=== PATIENT | female | born 1975 | race African-American/Black ===

== ENCOUNTER 2017-03-08 13:19 | Inpatient (IN) | payer OTHER ==
[2017-03-08 14:04] VITALS: BMI 28.1
--- NOTE | 2017-03-08 16:45 | HP ---
CIWA Score - CIWA Score Nausea/Vomitin Muscle Tremors: 4-Moderate,w/Arms Extend Anxiety: 4-Mod. Anxious/Guarded Agitation: 4-Moderately Restless Paroxysmal Sweats: 3 Orientation: 0-Oriented Tacttile Disturbances: 1-Very Mild Itch/Numbness Auditory Disturbances: 0-None Visual Disturbances: 0-None Headache: 2-Mild CIWA-Ar Total Score: 21 Admission ROS BHS - HPI Chief Complaint: alcohol withdrawal sx Allergies/Adverse Reactions: Allergies Allergy/AdvReac Type Severity Reaction Status Date / Time Penicillins Allergy Severe Swelling Verified 03/08/17 16:09 History of Present Illness: 41 yo f with h/o chronic alcoholism and cannabis dependence last in detox 07/07 came to day to get out of the black, has MAME when she does not drink last drink yesterday, get shakes temros, sweats, when she does nto drink but mostly anxiety and agitation PMHX nicotine dependence, no suicidal ideation, suicide attempts in past Exam Limitations: No Limitations - Ebola screening Have you traveled outside of the country in the last 21 days: No Have you had contact with anyone from an Ebola affected area: No Have you been sick,other than usual withdrawal symptoms: No Do you have a fever: No - Review of Systems Constitutional: Chills, Diaphoresis, Malaise, Night Sweats, Unintentional Wgt. Loss EENT: reports: No Symptoms Reported, Ear Pain (allergies, burning??) Respiratory: reports: No Symptoms reported Cardiac: reports: No Symptoms Reported, Edema (from wate4 retention) GI: reports: Nausea, Poor Appetite, Poor Fluid Intake, Abdominal cramping : reports: No Symptoms Reported Musculoskeletal: reports: Back Pain (chronic low back pain), Muscle Pain (leg spasms) Integumentary: reports: Flushing, Rash (on face uses steroids), Sweating Neuro: reports: Headache, Numbness, Paresthesia, Tingling, Tremors, Weakness Endocrine: reports: No Symptoms Reported Hematology: reports: No Symptoms Reported Psychiatric: reports: Judgement Intact, Mood/Affect Appropiate, Orientated x3, Agitated, Anxious, Depressed Other Systems: Reviewed and Negative Patient History - Patient Medical History Hx Anemia: No Hx Asthma: No Hx Chronic Obstructive Pulmonary Disease (COPD): No Hx Cancer: No Hx Cardiac Disorders: No Hx Congestive Heart Failure: No Hx Hypertension: No Hx Hypercholesterolemia: No Hx Pacemaker: No HX Cerebrovascular Accident: No Hx Seizures: No Hx Dementia: No Hx Diabetes: No Hx Gastrointestinal Disorders: No Hx Liver Disease: No Hx Genitourinary Disorders: No Hx Sexually Transmitted Disorders: No Hx Renal Disease (ESRD): No Hx Thyroid Disease: No Hx Human Immunodeficiency Virus (HIV): No Hx Hepatitis C: No Hx Depression: No Hx Suicide Attempt: No Hx Bipolar Disorder: No Hx Schizophrenia: No - Patient Surgical History Past Surgical History: Yes Hx Neurologic Surgery: No Hx Cataract Extraction: No Hx Cardiac Surgery: No Hx Lung Surgery: No Hx Breast Surgery: No Hx Breast Biopsy: No Hx Abdominal Surgery: No Hx Appendectomy: No Hx Cholecystectomy: Yes (20 years ago.) Hx Genitourinary Surgery: No Hx Section: No Hx Orthopedic Surgery: No Hx Hysterectomy: No Anesthesia Reaction: No - PPD History Previous Implant?: Yes Documented Results: Negative w/o proof Implanted On Prior R Admission?: No PPD to be Administered?: Yes - Reproductive History Patient is a Female of Child Bearing Age (11 -55 yrs old): No Last Menstrual Period: 02/19/17 Patient : No - Smoking Cessation Smoking history: Current every day smoker Have you smoked in the past 12 months: Yes Aproximately how many cigarettes per day: 5 Hx Chewing Tobacco Use: No Initiated information on smoking cessation: Yes 'Breaking Loose' booklet given: 03/08/17 - Substance & Tx. History Hx Alcohol Use: Yes Hx Substance Use: Yes Substance Use Type: Alcohol, Marijuana Hx Substance Use Treatment: Yes (06/2016 last treatment episode) - Substances Abused Alcohol Route: Oral Frequency: Daily Amount used: 1 PINT VODKA Age of first use: 15 Date of Last Use: 03/07/17 Marijuana/Hashish Route: Smoking Frequency: Daily Amount used: 1 BAG Age of first use: 15 Date of Last Use: 03/08/17 Family Disease History - Family Disease History Family Disease History: Other: Sister (alcoholism) Admission Physical Exam BHS - Vital Signs Vital Signs: Vital Signs - 24 hr 03/08/17 14:01 Temperature 97.8 F Pulse Rate 60 Respiratory 20 Rate Blood Pressure 155/93 - Physical General Appearance: Yes: Nourished, Appropriately Dressed, Disheveled, Mild Distress, Tremorous, Irritable, Sweating, Anxious HEENTM: Yes: EOMI, Hearing grossly Normal, Normal ENT Inspection, Normocephalic , Normal Voice, SHASHI, Pharynx Normal Respiratory: Yes: Within Normal Limits, Chest Non-Tender, Lungs Clear, Normal Breath Sounds, No Respiratory Distress, No Accessory Muscle Use Neck: Yes: Within Normal Limits, No masses,lesions,Nodules, Supple, Trachea in good position Breast: Yes: Breast Exam Deferred Cardiology: Yes: Within Normal Limits, Regular Rhythm, Regular Rate, S1, S2 Abdominal: Yes: Normal Bowel Sounds, Non Tender, Flat, Soft, Increased Bowel Sounds Genitourinary: Yes: Within Normal Limits Back: Yes: Normal Inspection, Muscle Spasm Musculoskeletal: Yes: full range of Motion, Gait Steady, Pelvis Stable, Back pain, Muscle Pain, Muscle weakness, Other (spasms in calfs) Extremities: Yes: Normal Capillary Refill, Normal Range of Motion, Non-Tender, Tremors, Pedal Edema (1+ pitting), Swelling Neurological: Yes: supervisor diagnostic II-XII NML intact, Fully Oriented, Alert, Motor Strength 5/5, Normal Response, Depressed Affect Integumentary: Yes: Normal Color, Warm, Diaphoresis, Rash Lymphatic: Yes: Within Normal Limits - Addiitonal Findings: alcohol withdrawal sx - Diagnostic (1) Alcohol dependence with uncomplicated withdrawal Current Visit: Yes Status: Acute (2) Nicotine dependence Current Visit: Yes Status: Acute (3) Cannabis dependence, uncomplicated Current Visit: Yes Status: Acute (4) Pedal edema Current Visit: Yes Status: Acute (5) Anxiety Current Visit: Yes Status: Acute Cleared for Admission [facility] - Detox or Rehab [facility] Level of Care: Medically Managed Detox Regimen/Protocol: Librium [facility] Breath Alcohol Content Breath Alcohol Content: 0 Urine Pregancy Test - Result Urine Test Results: Negative- NO Line Present Urine Drug Screen - Results Drug Screen Negative: No Urine Drug Screen Results: THC-Marijuana, COLIN-Cocaine
[2017-03-08] MEDS ORDERED: MENTHOL/PHENOL 1 EACH UD MM PRN (16:48)
[2017-03-08] MEDS ORDERED: MAG HYDROX/AL HYDROX/SIMETH 30 ML UNIT-DOSE CUP PO PRN (16:48)
[2017-03-08] MEDS ORDERED: chlordiazePOXIDE HCL 25 MG CAPSULE PO PRN (16:48)
[2017-03-08] MEDS ORDERED: ACETAMINOPHEN 325 MG TABLET (FP) PO PRN (16:48)
[2017-03-08] MEDS ORDERED: guaiFENesin/D-METHORPHAN HB 10 ML UNIT-DOSE CUPS PO PRN (16:48)
[2017-03-08] MEDS ORDERED: hydrOXYzine PAMOATE 50 MG CAPSULE (FP) PO PRN (16:48)
[2017-03-08] MEDS ORDERED: MAGNESIUM CITRATE 300 ML BOTTLE PO PRN (16:48)
[2017-03-08] MEDS ORDERED: LOPERAMIDE HCL 2 MG CAPSULE PO PRN (16:48)
[2017-03-08] MEDS ORDERED: MAGNESIUM HYDROX 2400MG/30ML ORAL SUSPENSION 30 ML CUP PO PRN (16:48)
[2017-03-08] MEDS ORDERED: chlordiazePOXIDE HCL 25 MG CAPSULE PO ONE (18:15)
[2017-03-08] MEDS: PANTOPRAZOLE 40 MG TABLET (FP) PO SCH (18:41)
[2017-03-08] MEDS: LORATADINE 10 MG TABLET PO SCH (18:42)
[2017-03-08] MEDS: NICOTINE 14 MG/24 HOURS TOPICAL PATCH TD SCH (18:43)
[2017-03-08] MEDS: FLUTICASONE PROP 0.05% 16 GM NASAL SPRAY NS SCH (18:43)
[2017-03-08 21:21] LABS: URINE APPEARANCE CLOUDY; URINE BILIRUBIN NEGATIVE (NEGATIVE); URINE BLOOD NEGATIVE (NEGATIVE); URINE COLOR YELLOW; URINE GLUCOSE (UA) NEGATIVE (NEGATIVE); URINE KETONE NEGATIVE (NEGATIVE); URINE NITRITE NEGATIVE (NEGATIVE); URINE UROBILINOGEN NEGATIVE mg/dL (0.2-1.0)
[2017-03-08 21:23] LABS: URINE LEUK ESTERASE 1+ (NEGATIVE); URINE PROTEIN 1+ (NEGATIVE)
[2017-03-08 21:25] LABS: URINE MUCUS MODERATE; URINE RBC 2 /hpf (0-3); URINE WBC 20 /hpf (3-5)
[2017-03-08] MEDS: chlordiazePOXIDE HCL 25 MG CAPSULE PO SCH (22:29)
[2017-03-08] MEDS: NAPROXEN 500 MG TABLET (FP) PO SCH (22:29)
[2017-03-08] MEDS: THIAMINE HCL 100 MG TABLET (FP) PO SCH (22:58)
[2017-03-09] MEDS: chlordiazePOXIDE HCL 25 MG CAPSULE PO SCH ×4 (08:23→22:45)
[2017-03-09 09:51] LABS: MCH 31.5 pg (25.7-33.7); MCHC 33.2 g/dl (32.0-36.0); MEAN PLT VOLUME 10.1 fl (7.5-11.1); PLATELET COUNT 177 K/MM3 (134-434); WHITE BLOOD COUNT 4.6 K/mm3 (4.0-10.0)
--- NOTE | 2017-03-09 09:54 | PN ---
S CIWA - CIWA Score Nausea/Vomitin Muscle Tremors: 4-Moderate,w/Arms Extend Anxiety: 4-Mod. Anxious/Guarded Agitation: 4-Moderately Restless Paroxysmal Sweats: 3 Orientation: 0-Oriented Tacttile Disturbances: 1-Very Mild Itch/Numbness Auditory Disturbances: 0-None Visual Disturbances: 0-None Headache: 1-Very Mild CIWA-Ar Total Score: 20 BHS Progress Note (SOAP) Subjective: nause,a sweats, interrupted sleep, anxiety, tremors [id number] steroid cream for face bid Objective: 03/09/17 09:54 Vital Signs - 8 hr 03/09/17 03/09/17 03:30 06:00 Temperature 97.7 F Pulse Rate 53 L Respiratory 18 18 Rate Blood Pressure 124/77 Laboratory Tests 03/08/17 14:00 Urine Color Yellow Urine Appearance Cloudy Urine pH 5.0 Ur Specific [place] 1.025 Urine Protein 1+ H Urine Glucose (UA) Negative Urine Ketones Negative Urine Blood Negative Urine Nitrite Negative Urine Bilirubin Negative Urine Urobilinogen Negative Urine RBC 2 Urine WBC 20 Ur Epithelial Cells Moderate Urine Mucus Moderate labs pending Assessment: 03/09/17 09:54 withdrawal sx, facial rash Plan: cont detox, fluids, encourage ambualtion betamehtasone ordered at patient request for rash on face
[2017-03-09] MEDS: CYCLOBENZAPRINE HCL 10 MG TABLET (FP) PO PRN ×2 (10:20→22:45)
[2017-03-09] MEDS: NAPROXEN 500 MG TABLET (FP) PO SCH ×2 (10:20→22:45)
[2017-03-09] MEDS: PRENATAL VITAMINS W/ FOLIC ACID TABLET (FP) PO SCH (10:20)
[2017-03-09] MEDS: LORATADINE 10 MG TABLET PO SCH (10:20)
[2017-03-09] MEDS: FLUTICASONE PROP 0.05% 16 GM NASAL SPRAY NS SCH (10:21)
[2017-03-09] MEDS: PANTOPRAZOLE 40 MG TABLET (FP) PO SCH (10:21)
[2017-03-09] MEDS: NICOTINE 14 MG/24 HOURS TOPICAL PATCH TD SCH (10:22)
[2017-03-09] MEDS: NICOTINE POLACRILEX 2 MG GUM BC PRN (10:24)
[2017-03-09 10:26] LABS: ALBUMIN 3.3 g/dl (3.4-5.0); ALK PHOS 43 U/L (45-117); ANION GAP 4 (8-16); BILIRUBIN,TOTAL 0.9 mg/dL (0.2-1.0); CALCIUM 8.3 mg/dL (8.5-10.1); CO2 30 mmol/L (21-32); CREATININE 0.5 mg/dL (0.55-1.02); GLUCOSE,RANDOM 79 mg/dL (74-106); SGOT/AST 16 U/L (15-37); SGPT/ALT 15 U/L (12-78); TOT PROT 5.5 g/dl (6.4-8.2)
[2017-03-09] MEDS: BETAMETHASONE VALERATE 0.1% CREAM 15 GM TUBE TP SCH ×2 (10:36→22:45)
--- NOTE | 2017-03-09 15:53 | CONSULT ---
[facility] Psychiatric Consult - Data Date of interview: 03/09/17 Admission source: [facility] Identifying data: This is 41 years old female with no past pscyjairic hospitalization history intoxicate dwith: Alcohol, Cannabis, Nicotine Substance Abuse History: - Smoking Cessation. Smoking history: Current every day smoker. Have you smoked in the past 12 months: Yes. Aproximately how many cigarettes per day: 5. Hx Chewing Tobacco Use: No. Initiated information on smoking cessation: Yes. 'Breaking Loose' booklet given: 03/08/17. - Substance & Tx. History. Hx Alcohol Use: Yes. Hx Substance Use: Yes. Substance Use Type : Alcohol, Marijuana. Hx Substance Use Treatment: Yes (06/2016 last treatment episode). - Substances Abused. Alcohol. Route: Oral. Frequency: Daily. Amount used: 1 PINT VODKA. Age of first use: 15. Date of Last Use: 03/07/17. Marijuana/Hashish. Route: Smoking. Frequency: Daily. Amount used: 1 BAG. Age of first use: 15. Date of Last Use: 03/08/17 Medical History: Pedal Edema Psychiatric History: Patient reports history of anxiety, reports taking no , edications prior to admission, denies suicidal history Physical/Sexual Abuse/Trauma History: Denies Additional Comment: Observation. Detox unit care protocol Mental Status Exam - Mental Status Exam Alert and Oriented to: Person Cognitive Function: Fair Patient Appearance: Unkempt Mood: Sad Affect: Flat Patient Behavior: Sedated Speech Pattern: Delayed Voice Loudness: Mildly Soft/Quiet Thought Process: Circumstantial Thought Disorder: Being Controlled Hallucinations: Denies Suicidal Ideation: Denies Homicidal Ideation: Denies Insight/Judgement: Fair Sleep: Difficulty falling asleep Appetite: Fair Muscle strength/Tone: Normal Gait/Station: Normal Additional Comments: Observation. Detox unit care protocol
--- NOTE | 2017-03-09 22:42 | EKG ---
Test Reason : Blood Pressure : / mmHG Vent. Rate : 058 BPM Atrial Rate : 058 BPM P-R Int : 152 ms QRS Dur : 094 ms QT Int : 418 ms P-R-T Axes : 040 023 044 degrees QTc Int : 410 ms SINUS BRADYCARDIA OTHERWISE NORMAL ECG NO PREVIOUS ECGS AVAILABLE Confirmed by VENU LLAMAS MD ([id number] on 03/09/2017 10:42:17 PM Referred By: Confirmed By:VENU LLAMAS MD
[2017-03-09] MEDS: THIAMINE HCL 100 MG TABLET (FP) PO SCH (22:45)
[2017-03-09] MEDS: diphenhydrAMINE HCL 50 MG CAPSULE PO PRN (22:45)
[2017-03-10] MEDS: chlordiazePOXIDE HCL 25 MG CAPSULE PO SCH ×3 (05:52→16:58)
[2017-03-10] MEDS: NICOTINE POLACRILEX 2 MG GUM BC PRN (05:54)
[2017-03-10] MEDS: PRENATAL VITAMINS W/ FOLIC ACID TABLET (FP) PO SCH (10:11)
[2017-03-10] MEDS: NAPROXEN 500 MG TABLET (FP) PO SCH ×2 (10:12→22:05)
[2017-03-10] MEDS: FLUTICASONE PROP 0.05% 16 GM NASAL SPRAY NS SCH (10:12)
[2017-03-10] MEDS: PANTOPRAZOLE 40 MG TABLET (FP) PO SCH (10:12)
[2017-03-10] MEDS: NICOTINE 14 MG/24 HOURS TOPICAL PATCH TD SCH (10:12)
[2017-03-10] MEDS: LORATADINE 10 MG TABLET PO SCH (10:12)
[2017-03-10] MEDS: BETAMETHASONE VALERATE 0.1% CREAM 15 GM TUBE TP SCH ×2 (10:12→22:05)
--- NOTE | 2017-03-10 11:13 | PN ---
S CIWA - CIWA Score Nausea/Vomitin-No Nausea/No Vomiting Muscle Tremors: 4-Moderate,w/Arms Extend Anxiety: 3 Agitation: 4-Moderately Restless Paroxysmal Sweats: 3 Orientation: 0-Oriented Tacttile Disturbances: 0-None Auditory Disturbances: 0-None Visual Disturbances: 0-None Headache: 0-None Present CIWA-Ar Total Score: 14 BHS Progress Note (SOAP) Subjective: agitation sweats irritable chills Objective: 03/10/17 11:14 Vital Signs Temperature 98.2 F 03/10/17 10:20 Pulse Rate 75 03/10/17 10:20 Respiratory Rate 18 03/10/17 10:20 Blood Pressure 134/92 03/10/17 10:20 O2 Sat by Pulse Oximetry (%) Laboratory Tests 03/08/17 03/09/17 03/09/17 14:00 07:00 07:00 WBC 4.6 RBC 3.65 Hgb 11.5 Hct 34.6 MCV 95.0 MCH 31.5 MCHC 33.2 RDW 13.0 Plt Count 177 MPV 10.1 Sodium 142 Potassium 3.6 Chloride 108 H Carbon Dioxide 30 Anion Gap 4 L BUN 14 Creatinine 0.5 L Creat Clearance w eGFR > 60 Random Glucose 79 Calcium 8.3 L Total Bilirubin 0.9 AST 16 ALT 15 Alkaline Phosphatase 43 L Total Protein 5.5 L Albumin 3.3 L Urine Color Yellow Urine Appearance Cloudy Urine pH 5.0 Ur Specific [place] 1.025 Urine Protein 1+ H Urine Glucose (UA) Negative Urine Ketones Negative Urine Blood Negative Urine Nitrite Negative Urine Bilirubin Negative Urine Urobilinogen Negative Urine RBC 2 Urine WBC 20 Ur Epithelial Cells Moderate Urine Mucus Moderate RPR Titer 03/09/17 07:00 WBC RBC Hgb Hct MCV MCH MCHC RDW Plt Count MPV Sodium Potassium Chloride Carbon Dioxide Anion Gap BUN Creatinine Creat Clearance w eGFR Random Glucose Calcium Total Bilirubin AST ALT Alkaline Phosphatase Total Protein Albumin Urine Color Urine Appearance Urine pH Ur Specific [place] Urine Protein Urine Glucose (UA) Urine Ketones Urine Blood Urine Nitrite Urine Bilirubin Urine Urobilinogen Urine RBC Urine WBC Ur Epithelial Cells Urine Mucus RPR Titer Nonreactive repeat u/a aaox3 ambulating no acute distress Assessment: 03/10/17 11:14 withdrawal sx Plan: continue detox increase fluids f/u pending labs
[2017-03-10] MEDS: CYCLOBENZAPRINE HCL 10 MG TABLET (FP) PO PRN ×2 (14:29→22:05)
[2017-03-10] MEDS: THIAMINE HCL 100 MG TABLET (FP) PO SCH (22:05)
[2017-03-10] MEDS: chlordiazePOXIDE 5 MG CAPSULE PO SCH (22:05)
[2017-03-10] MEDS: diphenhydrAMINE HCL 50 MG CAPSULE PO PRN (22:05)
[2017-03-11] MEDS: chlordiazePOXIDE 5 MG CAPSULE PO SCH ×3 (05:48→17:22)
[2017-03-11 10:16] LABS: URINE APPEARANCE SLCLOUDY; URINE BILIRUBIN NEGATIVE (NEGATIVE); URINE BLOOD NEGATIVE (NEGATIVE); URINE COLOR STRAW; URINE GLUCOSE (UA) NEGATIVE (NEGATIVE); URINE KETONE NEGATIVE (NEGATIVE); URINE NITRITE NEGATIVE (NEGATIVE); URINE PROTEIN NEGATIVE (NEGATIVE); URINE UROBILINOGEN NEGATIVE mg/dL (0.2-1.0)
[2017-03-11 10:18] LABS: URINE LEUK ESTERASE 1+ (NEGATIVE)
[2017-03-11 10:19] LABS: URINE RBC <1 /hpf (0-3); URINE WBC 7 /hpf (3-5)
[2017-03-11] MEDS: NAPROXEN 500 MG TABLET (FP) PO SCH ×2 (10:26→22:07)
[2017-03-11] MEDS: PRENATAL VITAMINS W/ FOLIC ACID TABLET (FP) PO SCH (10:26)
[2017-03-11] MEDS: PANTOPRAZOLE 40 MG TABLET (FP) PO SCH (10:26)
[2017-03-11] MEDS: LORATADINE 10 MG TABLET PO SCH (10:26)
[2017-03-11] MEDS: FLUTICASONE PROP 0.05% 16 GM NASAL SPRAY NS SCH (10:26)
[2017-03-11] MEDS: BETAMETHASONE VALERATE 0.1% CREAM 15 GM TUBE TP SCH ×2 (10:27→22:07)
[2017-03-11] MEDS: NICOTINE POLACRILEX 2 MG GUM BC PRN (10:30)
[2017-03-11] MEDS: NICOTINE 14 MG/24 HOURS TOPICAL PATCH TD SCH (10:30)
--- NOTE | 2017-03-11 12:13 | PN ---
BHS Progress Note (SOAP) Subjective: irritable tired sweats Objective: 03/11/17 12:12 Vital Signs Temperature 98.6 F 03/11/17 09:51 Pulse Rate 67 03/11/17 09:51 Respiratory Rate 16 03/11/17 09:51 Blood Pressure 145/91 03/11/17 09:51 O2 Sat by Pulse Oximetry (%) aaox3 ambulating no acute distress Assessment: 03/11/17 12:13 mild withdrawal sx Plan: continue detox increase fluids d/c in the am
[2017-03-11] MEDS: diphenhydrAMINE HCL 50 MG CAPSULE PO PRN (22:06)
[2017-03-11] MEDS: CYCLOBENZAPRINE HCL 10 MG TABLET (FP) PO PRN (22:07)
[2017-03-11] MEDS: THIAMINE HCL 100 MG TABLET (FP) PO SCH (22:07)
[2017-03-11] MEDS: chlordiazePOXIDE HCL 10 MG CAPSULE PO SCH (22:07)
[2017-03-12] MEDS: chlordiazePOXIDE HCL 10 MG CAPSULE PO SCH ×2 (06:47→10:40)
--- NOTE | 2017-03-12 09:00 | DS ---
[facility] Detox Discharge Summary Admission Date: 03/08/17 Discharge Date: 03/12/17 - History Present History: Alcohol Dependence, Cannabis Dependence Pertinent Past History: anxiety, insomnia, depression , nicotine dependence, swollen ankles - Physical Exam Results Vital Signs: Vital Signs Temperature 97.7 F 03/12/17 07:15 Pulse Rate 57 L 03/12/17 07:15 Respiratory Rate 18 03/12/17 07:15 Blood Pressure 130/68 03/12/17 07:15 O2 Sat by Pulse Oximetry (%) Laboratory Tests 03/08/17 03/09/17 03/09/17 14:00 07:00 07:00 WBC 4.6 RBC 3.65 Hgb 11.5 Hct 34.6 MCV 95.0 MCH 31.5 MCHC 33.2 RDW 13.0 Plt Count 177 MPV 10.1 Sodium 142 Potassium 3.6 Chloride 108 H Carbon Dioxide 30 Anion Gap 4 L BUN 14 Creatinine 0.5 L Creat Clearance w eGFR > 60 Random Glucose 79 Calcium 8.3 L Total Bilirubin 0.9 AST 16 ALT 15 Alkaline Phosphatase 43 L Total Protein 5.5 L Albumin 3.3 L Urine Color Yellow Urine Appearance Cloudy Urine pH 5.0 Ur Specific [place] 1.025 Urine Protein 1+ H Urine Glucose (UA) Negative Urine Ketones Negative Urine Blood Negative Urine Nitrite Negative Urine Bilirubin Negative Urine Urobilinogen Negative Urine RBC 2 Urine WBC 20 Ur Epithelial Cells Moderate Urine Mucus Moderate RPR Titer 03/09/17 03/11/17 07:00 07:30 WBC RBC Hgb Hct MCV MCH MCHC RDW Plt Count MPV Sodium Potassium Chloride Carbon Dioxide Anion Gap BUN Creatinine Creat Clearance w eGFR Random Glucose Calcium Total Bilirubin AST ALT Alkaline Phosphatase Total Protein Albumin Urine Color Straw Urine Appearance Slcloudy Urine pH 6.0 Ur Specific [place] 1.015 Urine Protein Negative Urine Glucose (UA) Negative Urine Ketones Negative Urine Blood Negative Urine Nitrite Negative Urine Bilirubin Negative Urine Urobilinogen Negative Urine RBC <1 Urine WBC 7 Ur Epithelial Cells Few Urine Mucus RPR Titer Nonreactive Pertinent Admission Physical Exam Findings: withdrawal sx - Treatment Hospital Course: Detox Protocol Followed, Detoxed Safely, Responded well, Discharged Condition Good, Rehab Referral Accepted - Diagnosis (1) Alcohol dependence with uncomplicated withdrawal Current Visit: Yes Status: Chronic (2) Nicotine dependence Current Visit: Yes Status: Chronic Qualifiers: Nicotine product type: cigarettes Substance use status: uncomplicated Qualified Code(s): F17.210 - Nicotine dependence, cigarettes, uncomplicated (3) Cannabis dependence, uncomplicated Current Visit: Yes Status: Chronic (4) Pedal edema Current Visit: Yes Status: Acute (5) Anxiety Current Visit: Yes Status: Chronic - AMA Did Patient Leave Against Medical Advice: No
[2017-03-12] MEDS ORDERED: BACITRACIN 0.9 GM PACKET TP SCH (10:00)
[2017-03-12 10:07] VITALS: BP 150/81; PULSE 80; TEMP 99
[2017-03-12] MEDS: FLUTICASONE PROP 0.05% 16 GM NASAL SPRAY NS SCH (10:39)
[2017-03-12] MEDS: PANTOPRAZOLE 40 MG TABLET (FP) PO SCH (10:40)
[2017-03-12] MEDS: LORATADINE 10 MG TABLET PO SCH (10:40)
[2017-03-12] MEDS: NAPROXEN 500 MG TABLET (FP) PO SCH (10:40)
[2017-03-12] MEDS: BETAMETHASONE VALERATE 0.1% CREAM 15 GM TUBE TP SCH (10:40)
[2017-03-12] MEDS: PRENATAL VITAMINS W/ FOLIC ACID TABLET (FP) PO SCH (10:40)
[2017-03-12] MEDS: NICOTINE 14 MG/24 HOURS TOPICAL PATCH TD SCH (10:41)
[2017-03-12] MEDS: NICOTINE POLACRILEX 2 MG GUM BC PRN (10:43)
== END 2017-03-12 14:21 | disposition home or self-care (01) | DRG 775 ==
LOC: YASAS 13:19 → Y6N 17:49
PROVIDERS: ADMIT Internal Medicine; ATTEND Internal Medicine
PROC: HZ2ZZZZ Detoxification Services for Substance Abuse Treatment (ICD-10-PCS; principal; 2017-03-08)
DX: F10.230 Alcohol dependence with withdrawal, uncomplicated (principal); F12.20 Cannabis dependence, uncomplicated; F17.210 Nicotine dependence, cigarettes, uncomplicated; F41.9 Anxiety disorder, unspecified; R60.0 Localized edema
CPT/HCPCS: 36415; 71020-TC; 80053; 81003; 81015; 85027; 86593; 93005; 93010

== ENCOUNTER 2017-06-03 12:26 | Inpatient (IN) | payer OTHER ==
[2017-06-03 13:18] VITALS: BMI 29.5
--- NOTE | 2017-06-03 16:42 | HP ---
[facility] Rehab Assess/Revision - Admission History Admitted to Rehab from: [facility] Date of Admission to Rehab: 06/03/2017 - Vital signs Vital Signs: Vital Signs Period Temp Pulse Resp BP Sys/Singh Pulse Ox Last 24 Hr 97.9 F 83 20 106/68 - Findings Detox History & Physical reviewed: Yes Concur with findings: Yes Comments/Additional Findings: Pateint relapsed to pill use most days and decided to return for inpatient rehab, court mandated Inpatient Rehab Admission - Initial Determination Are CD services needed?: Yes Free of communicable disease: Yes Not in need of hospitalization: Yes - Rehab Admission Criteria Previous failed treatment: Yes Comorbidities: Yes Patient is meeting Inpatient Rehab admission criteria:: Yes
[2017-06-03] MEDS ORDERED: MAGNESIUM CITRATE 300 ML BOTTLE PO PRN (16:44)
[2017-06-03] MEDS ORDERED: MAGNESIUM HYDROX 2400MG/30ML ORAL SUSPENSION 30 ML CUP PO PRN (16:44)
[2017-06-03] MEDS ORDERED: guaiFENesin/D-METHORPHAN HB 10 ML UNIT-DOSE CUPS PO PRN (16:44)
[2017-06-03] MEDS ORDERED: MENTHOL/PHENOL 1 EACH UD MM PRN (16:44)
[2017-06-03] MEDS ORDERED: IBUPROFEN 400 MG TABLET (FP) PO PRN (16:44)
[2017-06-03] MEDS ORDERED: LOPERAMIDE HCL 2 MG CAPSULE PO PRN (16:44)
[2017-06-03] MEDS: THIAMINE HCL 100 MG TABLET (FP) PO SCH (22:01)
[2017-06-03] MEDS: NICOTINE 14 MG/24 HOURS TOPICAL PATCH TD SCH (22:01)
[2017-06-04 02:33] LABS: URINE APPEARANCE SLCLOUDY; URINE BILIRUBIN NEGATIVE (NEGATIVE); URINE BLOOD NEGATIVE (NEGATIVE); URINE COLOR YELLOW; URINE GLUCOSE (UA) NEGATIVE (NEGATIVE); URINE KETONE NEGATIVE (NEGATIVE); URINE NITRITE NEGATIVE (NEGATIVE); URINE PROTEIN NEGATIVE (NEGATIVE); URINE UROBILINOGEN NEGATIVE mg/dL (0.2-1.0)
[2017-06-04 02:45] LABS: URINE LEUK ESTERASE 2+ (NEGATIVE)
[2017-06-04 02:46] LABS: EPI CELLS RARE /HPF (FEW); URINE BACTERIA RARE /hpf (NONE SEEN); URINE MUCUS RARE
[2017-06-04] MEDS: P-EPHED 60MG/TRIPROLIDI 2.5MG TABLET PO PRN ×2 (07:49→18:16)
[2017-06-04 10:17] LABS: HEMATOCRIT 36.2 % (32.4-45.2); HEMOGLOBIN 11.9 GM/dL (10.7-15.3); MCH 30.4 pg (25.7-33.7); MEAN CELL VOLUME 92.2 fl (80-96); MEAN PLT VOLUME 8.6 fl (7.5-11.1); PLATELET COUNT 308 K/MM3 (134-434); RBC 3.93 M/mm3 (3.60-5.2); RDW 12.3 % (11.6-15.6)
[2017-06-04] MEDS: NICOTINE 14 MG/24 HOURS TOPICAL PATCH TD SCH (10:25)
[2017-06-04] MEDS: PRENATAL VITAMINS W/ FOLIC ACID TABLET (FP) PO SCH (10:25)
[2017-06-04] MEDS: NICOTINE POLACRILEX 2 MG GUM BC PRN (10:26)
[2017-06-04 10:29] LABS: CHLORIDE 109 mmol/L (98-107); POTASSIUM 4.3 mmol/L (3.5-5.1); SODIUM 140 mmol/L (136-145)
[2017-06-04 10:47] LABS: ALBUMIN 4.2 g/dl (3.4-5.0); ALK PHOS 66 U/L (45-117); ANION GAP 7 (8-16); BILIRUBIN,TOTAL 0.8 mg/dL (0.2-1.0); BLOOD UREA NITROGEN 13 mg/dL (7-18); CALCIUM 8.8 mg/dL (8.5-10.1); CO2 24 mmol/L (21-32); CREATININE 0.8 mg/dL (0.55-1.02); GLUCOSE,RANDOM 91 mg/dL (74-106); SGOT/AST 24 U/L (15-37); SGPT/ALT 34 U/L (12-78); TOT PROT 7.2 g/dl (6.4-8.2)
--- NOTE | 2017-06-04 14:22 | HP ---
Psychiatrist Admission - Data Date of interview: 06/04/17 Admission source: [facility] Identifying data: This is the first 3E for this 42 year old AA female mother of 4, who is unemployed and domiciled, supported by relatives. Medical History: History of cholecystoectomy at age of 12. Smokes 15 cigarettes a day. Psychiatric History: Patient reports was diagnosed with Bipolar disorder, one psychiatric hospitalization 3 months ago at [facility] in [place] and was on [place] 300 mg po bid, Zyprexa 20 mg po hs, Lexapro 10 mg po daily. Reports was under the care of the psychiatrist at [facility] , while here at [facility] on 05/04/17 seen by and continued medications. Patient completed detox relapsed and returned for rehab, her treatment is a drug court mandated. Blood result for lithium pending. Physical/Sexual Abuse/Trauma History: Patient denies Vital Signs: Vital Signs - 24 hr 06/03/17 06/04/17 06/04/17 22:30 00:30 03:30 Temperature 97.9 F Pulse Rate 83 Respiratory 18 17 18 Rate Blood Pressure 120/82 06/04/17 07:22 Temperature 99.1 F Pulse Rate 75 Respiratory 18 Rate Blood Pressure 120/83 Allergies/Adverse Reactions: Allergies Allergy/AdvReac Type Severity Reaction Status Date / Time Penicillins Allergy Severe Swelling Verified 06/03/17 15:57 Date of last physical exam: 06/03/17 Concur with the findings of this exam: Yes - Substance Abuse/Tx History Hx Alcohol Use: Yes Hx Substance Use: Yes Substance Use Type: Marijuana Hx Substance Use Treatment: Yes (detox at [facility], [facility] at [facility] Mental Status Exam - Mental Status Exam Alert and Oriented to: Place, Person Cognitive Function: Grossly Intact Patient Appearance: Well Groomed Mood: Sad, Anxious Affect: Mood Congruent Patient Behavior: Appropriate, Cooperative Speech Pattern: Clear Voice Loudness: Normal Thought Process: Goal Oriented Thought Disorder: Not Present Hallucinations: Denies Suicidal Ideation: Denies Homicidal Ideation: Denies Insight/Judgement: Fair Sleep: Poorly Appetite: Fair Muscle strength/Tone: Normal Gait/Station: Normal Psychiatric Findings - Problem List ([place] 1, 2,3) (1) Cannabis dependence Current Visit: Yes Status: Acute (2) Alcohol dependence Current Visit: Yes Status: Acute (3) Bipolar disorder Current Visit: No Status: Chronic Comment: As per self-report.Currrently on medications. (4) Nicotine dependence Current Visit: No Status: Chronic Qualifiers: - Initial Treatment Plan Initial Treatment Plan: will continue zyprexa, lexapro, will restart lithium when get a blood result, monitor progress as needed.
[2017-06-04] MEDS: THIAMINE HCL 100 MG TABLET (FP) PO SCH (21:57)
[2017-06-04] MEDS: OLANZapine 10 MG TABLET PO SCH (21:57)
[2017-06-05] MEDS ORDERED: PT OWN MED DRAWER 7, Y5N ONE (08:34)
[2017-06-05] MEDS: NICOTINE POLACRILEX 2 MG GUM BC PRN (09:06)
[2017-06-05] MEDS: ESCITALOPRAM OXALATE 10 MG TABLET (FP) PO SCH (09:06)
[2017-06-05] MEDS: P-EPHED 60MG/TRIPROLIDI 2.5MG TABLET PO PRN ×2 (09:06→21:43)
[2017-06-05] MEDS: PRENATAL VITAMINS W/ FOLIC ACID TABLET (FP) PO SCH (09:06)
[2017-06-05] MEDS: NICOTINE 14 MG/24 HOURS TOPICAL PATCH TD SCH (09:07)
[2017-06-05] MEDS: OLANZapine 10 MG TABLET PO SCH (21:42)
[2017-06-05] MEDS: THIAMINE HCL 100 MG TABLET (FP) PO SCH (21:42)
[2017-06-06] MEDS: NICOTINE 14 MG/24 HOURS TOPICAL PATCH TD SCH (09:40)
[2017-06-06] MEDS: PRENATAL VITAMINS W/ FOLIC ACID TABLET (FP) PO SCH (09:40)
[2017-06-06] MEDS: ESCITALOPRAM OXALATE 10 MG TABLET (FP) PO SCH (09:41)
[2017-06-06] MEDS: THIAMINE HCL 100 MG TABLET (FP) PO SCH (21:39)
[2017-06-06] MEDS: OLANZapine 10 MG TABLET PO SCH (21:39)
[2017-06-06] MEDS: P-EPHED 60MG/TRIPROLIDI 2.5MG TABLET PO PRN (21:42)
[2017-06-07] MEDS: PRENATAL VITAMINS W/ FOLIC ACID TABLET (FP) PO SCH (10:01)
[2017-06-07] MEDS: ESCITALOPRAM OXALATE 10 MG TABLET (FP) PO SCH (10:01)
[2017-06-07] MEDS: NICOTINE 14 MG/24 HOURS TOPICAL PATCH TD SCH (10:01)
[2017-06-07] MEDS: NICOTINE POLACRILEX 2 MG GUM BC PRN (10:02)
--- NOTE | 2017-06-07 12:46 | PN ---
BHS Progress Note (SOAP) Subjective: c/o ry skin/itchy uses beclomethasonw w good effect Objective: 06/07/17 12:45 Vital Signs - 8 hr 06/07/17 07:23 Temperature 98.8 F Pulse Rate 67 Respiratory 18 Rate Blood Pressure 117/75 Laboratory Tests 06/03/17 06/04/17 06/04/17 23:15 07:00 07:00 WBC 6.0 RBC 3.93 Hgb 11.9 Hct 36.2 MCV 92.2 MCH 30.4 MCHC 33.0 RDW 12.3 Plt Count 308 MPV 8.6 Sodium Potassium Chloride Carbon Dioxide Anion Gap BUN Creatinine Creat Clearance w eGFR Random Glucose Calcium Total Bilirubin AST ALT Alkaline Phosphatase Total Protein Albumin Urine Color Yellow Urine Appearance Slcloudy Urine pH 7.0 Ur Specific [place] 1.015 Urine Protein Negative Urine Glucose (UA) Negative Urine Ketones Negative Urine Blood Negative Urine Nitrite Negative Urine Bilirubin Negative Urine Urobilinogen Negative Ur Leukocyte Esterase Trace H Urine WBC (Auto) 5 Urine RBC (Auto) 1 Ur Epithelial Cells Rare Urine Bacteria Rare Urine Mucus Rare [place] 0 L RPR Titer 06/04/17 06/04/17 07:00 07:00 WBC RBC Hgb Hct MCV MCH MCHC RDW Plt Count MPV Sodium 140 Potassium 4.3 Chloride 109 H Carbon Dioxide 24 Anion Gap 7 L BUN 13 Creatinine 0.8 Creat Clearance w eGFR > 60 Random Glucose 91 Calcium 8.8 Total Bilirubin 0.8 D AST 24 ALT 34 D Alkaline Phosphatase 66 D Total Protein 7.2 Albumin 4.2 Urine Color Urine Appearance Urine pH Ur Specific [place] Urine Protein Urine Glucose (UA) Urine Ketones Urine Blood Urine Nitrite Urine Bilirubin Urine Urobilinogen Ur Leukocyte Esterase Urine WBC (Auto) Urine RBC (Auto) Ur Epithelial Cells Urine Bacteria Urine Mucus [place] RPR Titer Nonreactive Assessment: 06/07/17 12:45 dry skin eczema vs allergies, beclomethasone ordered adn aveeno soap.
[2017-06-07] MEDS ORDERED: PT OWN MED DRAWER 7, Y5N ONE ×2 (15:44→15:46)
[2017-06-07] MEDS: BETAMETHASONE DIPR 0.05% CREAM 15 GM TUBE TP SCH ×2 (15:45→21:32)
[2017-06-07] MEDS: MAG HYDROX/AL HYDROX/SIMETH 30 ML UNIT-DOSE CUP PO PRN (18:09)
[2017-06-07] MEDS: THIAMINE HCL 100 MG TABLET (FP) PO SCH (21:31)
[2017-06-07] MEDS: OLANZapine 10 MG TABLET PO SCH (21:32)
[2017-06-07] MEDS: P-EPHED 60MG/TRIPROLIDI 2.5MG TABLET PO PRN (21:33)
--- NOTE | 2017-06-08 01:58 | EKG ---
Test Reason : Blood Pressure : / mmHG Vent. Rate : 081 BPM Atrial Rate : 081 BPM P-R Int : 158 ms QRS Dur : 098 ms QT Int : 384 ms P-R-T Axes : 071 028 033 degrees QTc Int : 446 ms NORMAL SINUS RHYTHM POSSIBLE LEFT ATRIAL ENLARGEMENT INCOMPLETE RIGHT BUNDLE BRANCH BLOCK BORDERLINE ECG WHEN COMPARED WITH ECG OF 03-MAY-2017 18:58, NO SIGNIFICANT CHANGE WAS FOUND Confirmed by BRANDIN VASQUEZ MD ([id number]) on 06/08/2017 1:58:05 AM Referred By: Confirmed By:BRANDIN VASQUEZ MD
[2017-06-08] MEDS: BETAMETHASONE DIPR 0.05% CREAM 15 GM TUBE TP SCH ×2 (10:26→21:42)
[2017-06-08] MEDS: ESCITALOPRAM OXALATE 10 MG TABLET (FP) PO SCH (10:26)
[2017-06-08] MEDS: NICOTINE 14 MG/24 HOURS TOPICAL PATCH TD SCH (10:27)
[2017-06-08] MEDS: NICOTINE POLACRILEX 2 MG GUM BC PRN (10:27)
[2017-06-08] MEDS: PRENATAL VITAMINS W/ FOLIC ACID TABLET (FP) PO SCH (10:27)
[2017-06-08] MEDS: OLANZapine 10 MG TABLET PO SCH (21:41)
[2017-06-08] MEDS: THIAMINE HCL 100 MG TABLET (FP) PO SCH (21:41)
[2017-06-08] MEDS: hydrOXYzine PAMOATE 50 MG CAPSULE (FP) PO PRN (21:43)
[2017-06-09] MEDS: NICOTINE 14 MG/24 HOURS TOPICAL PATCH TD SCH (10:04)
[2017-06-09] MEDS: BETAMETHASONE DIPR 0.05% CREAM 15 GM TUBE TP SCH ×2 (10:05→21:25)
[2017-06-09] MEDS: ESCITALOPRAM OXALATE 10 MG TABLET (FP) PO SCH (10:06)
[2017-06-09] MEDS: PRENATAL VITAMINS W/ FOLIC ACID TABLET (FP) PO SCH (10:06)
[2017-06-09] MEDS: NICOTINE POLACRILEX 2 MG GUM BC PRN (10:06)
[2017-06-09] MEDS: hydrOXYzine PAMOATE 50 MG CAPSULE (FP) PO PRN (18:39)
[2017-06-09] MEDS: THIAMINE HCL 100 MG TABLET (FP) PO SCH (21:24)
[2017-06-09] MEDS: OLANZapine 10 MG TABLET PO SCH (21:24)
[2017-06-10] MEDS: PRENATAL VITAMINS W/ FOLIC ACID TABLET (FP) PO SCH (11:18)
[2017-06-10] MEDS: BETAMETHASONE DIPR 0.05% CREAM 15 GM TUBE TP SCH ×2 (11:18→21:41)
[2017-06-10] MEDS: ESCITALOPRAM OXALATE 10 MG TABLET (FP) PO SCH (11:18)
[2017-06-10] MEDS: NICOTINE 14 MG/24 HOURS TOPICAL PATCH TD SCH (11:19)
[2017-06-10] MEDS: hydrOXYzine PAMOATE 50 MG CAPSULE (FP) PO PRN ×3 (11:20→21:40)
--- NOTE | 2017-06-10 12:26 | PN ---
Progress Note (short form) - Note Progress Note: requests change of diprosone cream, says the white and yellow tube given on admission was the correct one. the recent tube given to her is orange and white which had a different name and texture than her home medication and the tube given to her on admission. discussed with pharmacy, they will send up what they have, they think the enrober tender might have changed. [facility] the [facility] since admission, unlikely that the patient would have received a different cream. Discussed with the patient to use the cream or see what the pharmacy sends up, if it is not to the patient's liking she will not use it during the stay. if her skin condition flares she will be evaluated for alternate medication. Problem List - Problems (1) Alcohol dependence Code(s): F10.20 - ALCOHOL DEPENDENCE, UNCOMPLICATED (2) Benzodiazepine abuse Code(s): F13.10 - SEDATIVE, HYPNOTIC OR ANXIOLYTIC ABUSE, UNCOMPLICATED (3) Cannabis dependence Code(s): F12.20 - CANNABIS DEPENDENCE, UNCOMPLICATED (4) Dry skin dermatitis Code(s): L85.3 - XEROSIS CUTIS (5) Insomnia Code(s): G47.00 - INSOMNIA, UNSPECIFIED (6) Anxiety Code(s): F41.9 - ANXIETY DISORDER, UNSPECIFIED (7) Muscle spasm Code(s): M62.838 - OTHER MUSCLE SPASM (8) Seasonal allergies Code(s): J30.2 - OTHER SEASONAL ALLERGIC RHINITIS Qualifiers:
[2017-06-10] MEDS: OLANZapine 10 MG TABLET PO SCH (21:39)
[2017-06-10] MEDS: THIAMINE HCL 100 MG TABLET (FP) PO SCH (21:39)
[2017-06-11] MEDS ORDERED: PT OWN MED DRAWER 7, Y5N ONE ×4 (08:39→21:46)
[2017-06-11] MEDS: BETAMETHASONE DIPR 0.05% CREAM 15 GM TUBE TP SCH ×2 (10:26→21:41)
[2017-06-11] MEDS: ESCITALOPRAM OXALATE 10 MG TABLET (FP) PO SCH (10:26)
[2017-06-11] MEDS: NICOTINE POLACRILEX 2 MG GUM BC PRN (10:26)
[2017-06-11] MEDS: PRENATAL VITAMINS W/ FOLIC ACID TABLET (FP) PO SCH (10:26)
[2017-06-11] MEDS: NICOTINE 14 MG/24 HOURS TOPICAL PATCH TD SCH (10:26)
[2017-06-11] MEDS: MAG HYDROX/AL HYDROX/SIMETH 30 ML UNIT-DOSE CUP PO PRN (10:29)
[2017-06-11] MEDS: hydrOXYzine PAMOATE 50 MG CAPSULE (FP) PO PRN ×3 (10:29→21:41)
--- NOTE | 2017-06-11 11:15 | PN ---
Progress Note (short form) - Note Progress Note: c/o trouble falling asleep and with sleep maintanence. it will take her >45 mins to fall asleep, when she does she can only stay asleep for 30 mins. has received the correct tube of her betamethasone cream from pharmacy Plan: recommend to discuss insomnia with psychiatrist benadryl 50mg HS prn for sleep Discussed with Dr. Cook Problem List - Problems (1) Alcohol dependence Code(s): F10.20 - ALCOHOL DEPENDENCE, UNCOMPLICATED (2) Benzodiazepine abuse Code(s): F13.10 - SEDATIVE, HYPNOTIC OR ANXIOLYTIC ABUSE, UNCOMPLICATED (3) Cannabis dependence Code(s): F12.20 - CANNABIS DEPENDENCE, UNCOMPLICATED (4) Dry skin dermatitis Code(s): L85.3 - XEROSIS CUTIS (5) Insomnia Code(s): G47.00 - INSOMNIA, UNSPECIFIED (6) Anxiety Code(s): F41.9 - ANXIETY DISORDER, UNSPECIFIED (7) Muscle spasm Code(s): M62.838 - OTHER MUSCLE SPASM (8) Seasonal allergies Code(s): J30.2 - OTHER SEASONAL ALLERGIC RHINITIS Qualifiers:
[2017-06-11] MEDS: COLLOIDAL OATMEAL 1 BAR EACH TP PRN (12:03)
--- NOTE | 2017-06-11 17:02 | PN ---
Psychiatric Progress Note Vital Signs: Vital Signs Period Temp Pulse Resp BP Sys/Singh Pulse Ox Last 24 Hr 98.4 F 67 18-18 123/81 Date of Session: 06/11/17 Chief Complaint:: Anish not sleeping for a while. HPI: Patient addressee Alcohol,Cannabis dependence and Anxiolytic abuse comorbid with Bipolar disorder. ROS: Dry skin dermatitis. Current Medications: Active Medications Generic Name Dose Route Start Last Admin Trade Name Freq PRN Reason Stop Dose Admin Acetaminophen 650 mg 06/03/17 16:44 Tylenol - PO Q4H PRN PAIN Al Hydroxide/Mg Hydroxide 30 ml 06/03/17 16:44 06/11/17 10:29 Mylanta Oral Suspension - PO 30 ml Q6H PRN Administration DYSPEPSIA Betamethasone Dipropionate 1 applic 06/07/17 13:45 06/11/17 10:26 Diprosone 0.05% Cream - TP 1 applic BID SARIAH Administration Colloidal Oatmeal 1 applic 06/07/17 12:46 06/11/17 12:03 Aveeno Soap - TP 1 applic DAILY PRN Administration HYGEINE Escitalopram Oxalate 10 mg 06/05/17 10:00 06/11/17 10:26 Lexapro - PO 10 mg DAILY SARIAH Administration Eucalyptus/Menthol/Phenol/Sorbitol 1 each 06/03/17 16:44 Cepastat Lozenge - MM Q4H PRN SORE THROAT Guaifenesin 10 ml 06/03/17 16:44 Robitussin Dm - PO Q6H PRN COUGH Hydroxyzine Pamoate 50 mg 06/03/17 16:44 06/11/17 15:56 Vistaril - PO 50 mg Q4H PRN Administration AGITATION Ibuprofen 400 mg 06/03/17 16:44 Motrin - PO Q6H PRN SEVERE PAIN Loperamide HCl 4 mg 06/03/17 16:44 Imodium - PO Q6H PRN DIARRHEA Magnesium Citrate 300 ml 06/03/17 16:44 Citroma - PO Q48H PRN CONSTIPATION Magnesium Hydroxide 30 ml 06/03/17 16:44 Milk Of Magnesia - PO DAILY PRN CONSTIPATION Nicotine 14 mg 06/03/17 18:00 06/11/17 10:26 Nicoderm Patch - TD Not Given DAILY SARIAH Nicotine Polacrilex 2 mg 06/03/17 16:44 06/11/17 10:26 Nicorette Gum - BC 2 mg Q2H PRN Administration NICOTINE REPLACEMENT RX Olanzapine 20 mg 06/04/17 22:00 06/10/17 21:39 Zyprexa - PO 20 mg HS SARIAH Administration Multivit/Folic Acid/Iron 1 tab 06/04/17 10:00 06/11/17 10:26 Vitamins (Sjr) - PO 1 tab DAILY SARIAH Administration Pseudoephedrine/Triprolidine 1 combo 06/03/17 16:44 06/07/17 21:33 Actifed - PO 1 combo TID PRN Administration NASAL CONGESTION Thiamine HCl 100 mg 06/03/17 22:00 06/10/17 21:39 Vitamin B1 - PO 100 mg HS SARIAH Administration Current Side Effect: No Lab tests ordered: No Lab tests reviewed: Yes Provider note:: Chart was revuewed,patient addressed sleeping difficulties: inability to fallasleep and interrupted sleep pattern.Properties of Trazodone including side effects,benfits has been discussed with the patient .Patient agreed to start Trazodone 100 mg po hs.Continue Zyprexa 20 mg po hs and Lexapro 10 mg po daily. Supportive therapy provided. Total face to face time:: 25 Mental Status Exam - Mental Status Exam Alert and Oriented to: Time, Place, Person Cognitive Function: Grossly Intact Patient Appearance: Well Groomed Mood: Anxious, Euthymic Patient Behavior: Cooperative Speech Pattern: Clear Voice Loudness: Normal Thought Process: Goal Oriented Thought Disorder: Not Present Hallucinations: Denies Suicidal Ideation: Denies Homicidal Ideation: Denies Insight/Judgement: Fair Sleep: Fair Appetite: Fair Muscle strength/Tone: Normal Gait/Station: Normal Psychiatric Treatment Plan - Problem List (1) Alcohol dependence Current Visit: Yes (2) Benzodiazepine abuse Current Visit: Yes (3) Cannabis dependence Current Visit: Yes (4) Dry skin dermatitis Current Visit: Yes (5) Bipolar disorder Current Visit: Yes Comment: As per self-report.Currrently on medications. (6) Nicotine dependence Current Visit: Yes Qualifiers:
[2017-06-11] MEDS ORDERED: diphenhydrAMINE HCL 50 MG CAPSULE PO PRN (17:27)
[2017-06-11] MEDS: ACETAMINOPHEN 325 MG TABLET (FP) PO PRN (18:43)
[2017-06-11] MEDS: traZODone HCL 100 MG TABLET (FP) PO SCH (21:39)
[2017-06-11] MEDS: THIAMINE HCL 100 MG TABLET (FP) PO SCH (21:39)
[2017-06-11] MEDS: OLANZapine 10 MG TABLET PO SCH (21:39)
[2017-06-12] MEDS: ESCITALOPRAM OXALATE 10 MG TABLET (FP) PO SCH (09:51)
[2017-06-12] MEDS: BETAMETHASONE DIPR 0.05% CREAM 15 GM TUBE TP SCH ×2 (09:51→22:30)
[2017-06-12] MEDS: PRENATAL VITAMINS W/ FOLIC ACID TABLET (FP) PO SCH (09:51)
[2017-06-12] MEDS: NICOTINE 14 MG/24 HOURS TOPICAL PATCH TD SCH (09:51)
[2017-06-12] MEDS: hydrOXYzine PAMOATE 50 MG CAPSULE (FP) PO PRN ×3 (09:54→21:36)
--- NOTE | 2017-06-12 15:09 | PN ---
Psychiatric Progress Note Vital Signs: Vital Signs Period Temp Pulse Resp BP Sys/Singh Pulse Ox Last 24 Hr 98.0 F 61 17-18 117/73 Date of Session: 06/12/17 Chief Complaint:: " I want my trazodone two times a day." HPI: Called to adjust this patient's medications.Patient was admitted to [address] on 06/03/17 to address alcohol dependence,cannabis dependence ,co-morbid with nicotine dependence and bipolar disorder.Hospital course is uneventful except for continuous requests for trazodone to be dispensed twice a day (200 mg).Patient keeps on pressuring nursing staff for medications " for anger management." ROS: Unremarkable.Patient is always visible on the unit,sociable,ambulatory and visibly at ease with others. Current Medications: Active Medications Generic Name Dose Route Start Last Admin Trade Name Freq PRN Reason Stop Dose Admin Acetaminophen 650 mg 06/03/17 16:44 06/11/17 18:43 Tylenol - PO 650 mg Q4H PRN Administration PAIN Al Hydroxide/Mg Hydroxide 30 ml 06/03/17 16:44 06/11/17 10:29 Mylanta Oral Suspension - PO 30 ml Q6H PRN Administration DYSPEPSIA Betamethasone Dipropionate 1 applic 06/07/17 13:45 06/12/17 09:51 Diprosone 0.05% Cream - TP 1 applic BID SARIAH Administration Colloidal Oatmeal 1 applic 06/07/17 12:46 06/11/17 12:03 Aveeno Soap - TP 1 applic DAILY PRN Administration HYGEINE Diphenhydramine HCl 50 mg 06/11/17 17:27 Benadryl - PO HS PRN INSOMNIA Escitalopram Oxalate 10 mg 06/05/17 10:00 06/12/17 09:51 Lexapro - PO 10 mg DAILY SARIAH Administration Eucalyptus/Menthol/Phenol/Sorbitol 1 each 06/03/17 16:44 Cepastat Lozenge - MM Q4H PRN SORE THROAT Guaifenesin 10 ml 06/03/17 16:44 Robitussin Dm - PO Q6H PRN COUGH Hydroxyzine Pamoate 50 mg 06/03/17 16:44 06/12/17 14:53 Vistaril - PO 50 mg Q4H PRN Administration AGITATION Ibuprofen 400 mg 06/03/17 16:44 Motrin - PO Q6H PRN SEVERE PAIN Loperamide HCl 4 mg 06/03/17 16:44 Imodium - PO Q6H PRN DIARRHEA Magnesium Citrate 300 ml 06/03/17 16:44 Citroma - PO Q48H PRN CONSTIPATION Magnesium Hydroxide 30 ml 06/03/17 16:44 Milk Of Magnesia - PO DAILY PRN CONSTIPATION Nicotine 14 mg 06/03/17 18:00 06/12/17 09:51 Nicoderm Patch - TD Not Given DAILY SARIAH Nicotine Polacrilex 2 mg 06/03/17 16:44 06/11/17 10:26 Nicorette Gum - BC 2 mg Q2H PRN Administration NICOTINE REPLACEMENT RX Olanzapine 20 mg 06/04/17 22:00 06/11/17 21:39 Zyprexa - PO 20 mg HS SARIAH Administration Multivit/Folic Acid/Iron 1 tab 06/04/17 10:00 06/12/17 09:51 Vitamins (Sjr) - PO 1 tab DAILY SARIAH Administration Pseudoephedrine/Triprolidine 1 combo 06/03/17 16:44 06/07/17 21:33 Actifed - PO 1 combo TID PRN Administration NASAL CONGESTION Thiamine HCl 100 mg 06/03/17 22:00 06/11/17 21:39 Vitamin B1 - PO 100 mg HS SARIAH Administration Trazodone HCl 100 mg 06/11/17 22:00 06/11/17 21:39 Desyrel - PO 100 mg HS SARIAH Administration Medication(s) Change(s): Medications reviewed.This patient is already known to sba underwriter (see my note of 05/04/17).Admission note by Dr Resendez is appreciated.Will re-start lithium at the dose of 300 mg po bid (lithium level = 0 on 06/04/17).To be titrated to 900 mg per day (dose received at [facility] two months ago). Side effects/benefits are discussed with patient.Ms Kessler is made aware of potential for renal dysfunction,tremors,thyroid dysjunction, alopecia areata,weight gain and aggravation of psoriasis.Trazodone will remain at 100 mg po hs.Patient has expressed her agreement with this careplan.[place] level to be requested in five days. Current Side Effect: No Lab tests ordered: No Lab tests reviewed: Yes (Negligilble lithium level on admission.) Provider note:: Chart reviewed.Previous records revisited.Met with patient to discuss medication management.Ms Kessler is focused on getting two doses of trazodone daily in order " to get some rest." Complains that vistaril 50 mg orally every 4 hours prn " is not working." Wants dose doubled.Patient is redirected.She is made aware of alternate ways to control irritability and the various aspects of rehabilitation care (daily activities,sessions,socialization, harm reduction,medications).Firm limits set and treatment plan rediscussed with patient (RN Flor Quinones assisted in the intervention).Ms Kessler responded favorably to teaching.No acting out.She verbalized her accord with the treatment team and agreed to follow the modified regime of medications (see orders for details).Stable mental status. Mental Status Exam - Mental Status Exam Alert and Oriented to: Time, Place, Person Cognitive Function: Good Patient Appearance: Well Groomed (overweight,tall stature) Mood: Anxious, Irritable Affect: Mood Congruent Patient Behavior: Talkative (manipulative and medication-seeking), Cooperative Speech Pattern: Clear, Appropriate Voice Loudness: Normal Thought Process: Intact, Goal Oriented Thought Disorder: Not Present Hallucinations: Denies Suicidal Ideation: Denies Homicidal Ideation: Denies Insight/Judgement: Fair Sleep: Poorly, Difficulty falling asleep (not supported by nursing records) Appetite: Good Muscle strength/Tone: Normal Gait/Station: Normal Psychiatric Treatment Plan - Problem List (1) Bipolar disorder Current Visit: Yes Comment: As per self-report.Currrently on medications. (2) Alcohol dependence Current Visit: Yes (3) Cannabis dependence Current Visit: Yes (4) Nicotine dependence Current Visit: Yes Qualifiers: (5) Insomnia Current Visit: Yes
[2017-06-12] MEDS: THIAMINE HCL 100 MG TABLET (FP) PO SCH (21:30)
[2017-06-12] MEDS: OLANZapine 10 MG TABLET PO SCH (21:30)
[2017-06-12] MEDS: traZODone HCL 100 MG TABLET (FP) PO SCH (21:30)
[2017-06-12] MEDS: LITHIUM CARBONATE 300 MG CAPSULE (FP) PO SCH (21:33)
[2017-06-12] MEDS: MAG HYDROX/AL HYDROX/SIMETH 30 ML UNIT-DOSE CUP PO PRN (21:37)
[2017-06-13] MEDS ORDERED: PT OWN MED DRAWER 7, Y5N ONE (08:47)
[2017-06-13] MEDS: PRENATAL VITAMINS W/ FOLIC ACID TABLET (FP) PO SCH (10:02)
[2017-06-13] MEDS: LITHIUM CARBONATE 300 MG CAPSULE (FP) PO SCH ×2 (10:02→21:36)
[2017-06-13] MEDS: NICOTINE 14 MG/24 HOURS TOPICAL PATCH TD SCH (10:02)
[2017-06-13] MEDS: ESCITALOPRAM OXALATE 10 MG TABLET (FP) PO SCH (10:02)
[2017-06-13] MEDS: BETAMETHASONE DIPR 0.05% CREAM 15 GM TUBE TP SCH ×2 (10:03→22:25)
[2017-06-13] MEDS: NICOTINE POLACRILEX 2 MG GUM BC PRN (10:06)
[2017-06-13] MEDS: hydrOXYzine PAMOATE 50 MG CAPSULE (FP) PO PRN ×3 (10:06→21:38)
[2017-06-13] MEDS: ACETAMINOPHEN 325 MG TABLET (FP) PO PRN (20:07)
--- NOTE | 2017-06-13 20:18 | PN ---
[facility] Progress Note Note: PT. claims she has a hx. of asthma and uses albuterol inhaler. Last Vital Signs Temp Pulse Resp BP Pulse Ox 98.0 F 61 18 117/73 06/12/17 07:44 06/12/17 07:44 06/13/17 07:53 06/12/17 07:44 Lungs : CLEAR A&P P : Albuterol inhaler ordered
[2017-06-13] MEDS: traZODone HCL 100 MG TABLET (FP) PO SCH (21:36)
[2017-06-13] MEDS: OLANZapine 10 MG TABLET PO SCH (21:36)
[2017-06-13] MEDS: THIAMINE HCL 100 MG TABLET (FP) PO SCH (21:37)
[2017-06-13] MEDS: MAG HYDROX/AL HYDROX/SIMETH 30 ML UNIT-DOSE CUP PO PRN (21:40)
[2017-06-14] MEDS: NICOTINE 14 MG/24 HOURS TOPICAL PATCH TD SCH (09:59)
[2017-06-14] MEDS: BETAMETHASONE DIPR 0.05% CREAM 15 GM TUBE TP SCH ×2 (09:59→21:32)
[2017-06-14] MEDS: ESCITALOPRAM OXALATE 10 MG TABLET (FP) PO SCH (09:59)
[2017-06-14] MEDS: LITHIUM CARBONATE 300 MG CAPSULE (FP) PO SCH ×2 (09:59→21:31)
[2017-06-14] MEDS: PRENATAL VITAMINS W/ FOLIC ACID TABLET (FP) PO SCH (09:59)
[2017-06-14] MEDS: ACETAMINOPHEN 325 MG TABLET (FP) PO PRN ×2 (12:27→18:08)
[2017-06-14] MEDS: hydrOXYzine PAMOATE 50 MG CAPSULE (FP) PO PRN (12:27)
[2017-06-14] MEDS: MAG HYDROX/AL HYDROX/SIMETH 30 ML UNIT-DOSE CUP PO PRN (18:07)
[2017-06-14] MEDS ORDERED: PT OWN MED DRAWER 7, Y5N ONE ×2 (20:13→22:11)
[2017-06-14] MEDS: traZODone HCL 100 MG TABLET (FP) PO SCH (21:31)
[2017-06-14] MEDS: OLANZapine 10 MG TABLET PO SCH (21:31)
[2017-06-14] MEDS: THIAMINE HCL 100 MG TABLET (FP) PO SCH (21:31)
[2017-06-14] MEDS: ALBUTEROL SO4 18 GM HFA INHALER IH PRN (21:32)
[2017-06-15] MEDS ORDERED: PT OWN MED DRAWER 7, Y5N ONE ×2 (09:56→21:40)
[2017-06-15] MEDS: BETAMETHASONE DIPR 0.05% CREAM 15 GM TUBE TP SCH ×2 (09:56→21:41)
[2017-06-15] MEDS: ACETAMINOPHEN 325 MG TABLET (FP) PO PRN ×2 (09:57→15:30)
[2017-06-15] MEDS: ESCITALOPRAM OXALATE 10 MG TABLET (FP) PO SCH (09:57)
[2017-06-15] MEDS: LITHIUM CARBONATE 300 MG CAPSULE (FP) PO SCH ×2 (09:57→21:38)
[2017-06-15] MEDS: NICOTINE 14 MG/24 HOURS TOPICAL PATCH TD SCH (09:58)
[2017-06-15] MEDS: PRENATAL VITAMINS W/ FOLIC ACID TABLET (FP) PO SCH (09:58)
[2017-06-15] MEDS: NICOTINE POLACRILEX 2 MG GUM BC PRN (09:59)
[2017-06-15] MEDS: hydrOXYzine PAMOATE 50 MG CAPSULE (FP) PO PRN ×2 (15:31→21:40)
[2017-06-15] MEDS: THIAMINE HCL 100 MG TABLET (FP) PO SCH (21:38)
[2017-06-15] MEDS: OLANZapine 10 MG TABLET PO SCH (21:38)
[2017-06-15] MEDS: traZODone HCL 100 MG TABLET (FP) PO SCH (21:38)
[2017-06-16] MEDS: LITHIUM CARBONATE 300 MG CAPSULE (FP) PO SCH ×2 (10:14→21:44)
[2017-06-16] MEDS: PRENATAL VITAMINS W/ FOLIC ACID TABLET (FP) PO SCH (10:14)
[2017-06-16] MEDS: ESCITALOPRAM OXALATE 10 MG TABLET (FP) PO SCH (10:15)
[2017-06-16] MEDS: NICOTINE 14 MG/24 HOURS TOPICAL PATCH TD SCH (10:15)
[2017-06-16] MEDS: BETAMETHASONE DIPR 0.05% CREAM 15 GM TUBE TP SCH ×2 (10:15→21:47)
[2017-06-16] MEDS: MAG HYDROX/AL HYDROX/SIMETH 30 ML UNIT-DOSE CUP PO PRN (10:18)
[2017-06-16] MEDS: hydrOXYzine PAMOATE 50 MG CAPSULE (FP) PO PRN ×2 (10:18→16:58)
--- NOTE | 2017-06-16 16:15 | PN ---
[facility] Progress Note Note: Psychiatry Attending's note : [place] level :pending. Will follow results.
[2017-06-16] MEDS: ACETAMINOPHEN 325 MG TABLET (FP) PO PRN (16:58)
[2017-06-16] MEDS: COLLOIDAL OATMEAL 1 BAR EACH TP PRN (20:05)
[2017-06-16] MEDS: traZODone HCL 50 MG TABLET (FP) PO SCH (21:44)
[2017-06-16] MEDS: OLANZapine 10 MG TABLET PO SCH (21:45)
[2017-06-16] MEDS: THIAMINE HCL 100 MG TABLET (FP) PO SCH (21:47)
[2017-06-16] MEDS ORDERED: PT OWN MED DRAWER 7, Y5N ONE (21:48)
[2017-06-17] MEDS ORDERED: PT OWN MED DRAWER 7, Y5N ONE ×3 (09:11→16:01)
[2017-06-17] MEDS: LITHIUM CARBONATE 300 MG CAPSULE (FP) PO SCH ×2 (10:40→21:46)
[2017-06-17] MEDS: ESCITALOPRAM OXALATE 10 MG TABLET (FP) PO SCH (10:40)
[2017-06-17] MEDS: NICOTINE POLACRILEX 2 MG GUM BC PRN (10:41)
[2017-06-17] MEDS: NICOTINE 14 MG/24 HOURS TOPICAL PATCH TD SCH (10:41)
[2017-06-17] MEDS: BETAMETHASONE DIPR 0.05% CREAM 15 GM TUBE TP SCH ×2 (10:41→21:46)
[2017-06-17] MEDS: ALBUTEROL SO4 18 GM HFA INHALER IH PRN (10:41)
[2017-06-17] MEDS: PRENATAL VITAMINS W/ FOLIC ACID TABLET (FP) PO SCH (10:41)
--- NOTE | 2017-06-17 10:46 | PN ---
S Progress Note (SOAP) Subjective: c/o "allergies" and requesting benadryl to be increased, says vistaril is a "placebo" and does nothing for her. denies cough, rhinorrhea, itchy/burning/watery eyes. Objective: 06/17/17 10:44 focused PE: no acute distress. HEENT: no nasal congestion, rhinorrhea, clear sclera, eomi, peri Lungs: comfortably breathing room air Abd: nd, nt Ext: normal gait, no edema 06/17/17 14:08 Vital Signs Temperature 98.1 F 06/17/17 07:20 Pulse Rate 87 06/17/17 07:20 Respiratory Rate 18 06/17/17 07:20 Blood Pressure 138/93 06/17/17 07:20 O2 Sat by Pulse Oximetry (%) Assessment: 06/17/17 10:45 42 yr old woman with history of alcohol, nicotine, marijuana dependence, with bipolar II d/o admitted for rehabilitation requesting increase in allergy medication. 06/17/17 10:46 Plan: denies s/s of allergies, unclear what she may be reacting to inside without new environmental exposure, possible indoor allergens like dust. will add singular at night to decrease any inflammatory process and benadryl during the day for continuous coverage of any histamine release.
[2017-06-17] MEDS ORDERED: diphenhydrAMINE HCL 50 MG CAPSULE PO ONE (11:28)
[2017-06-17] MEDS: ACETAMINOPHEN 325 MG TABLET (FP) PO PRN (12:49)
[2017-06-17] MEDS: MAG HYDROX/AL HYDROX/SIMETH 30 ML UNIT-DOSE CUP PO PRN (15:59)
--- NOTE | 2017-06-17 17:30 | PN ---
S Progress Note (SOAP) Subjective: patint requesting benadryl at night for sleep and hydroxyzine during the day for anxiety will give stat dose ow 100mg Objective: 06/17/17 17:29 Vital Signs - 24 hr 06/17/17 06/17/17 06/17/17 00:30 03:25 07:20 Temperature 98.1 F Pulse Rate 87 Respiratory 18 18 18 Rate Blood Pressure 138/93 Laboratory Tests 06/03/17 06/04/17 06/04/17 23:15 07:00 07:00 WBC 6.0 RBC 3.93 Hgb 11.9 Hct 36.2 MCV 92.2 MCH 30.4 MCHC 33.0 RDW 12.3 Plt Count 308 MPV 8.6 Sodium Potassium Chloride Carbon Dioxide Anion Gap BUN Creatinine Creat Clearance w eGFR Random Glucose Calcium Total Bilirubin AST ALT Alkaline Phosphatase Total Protein Albumin Urine Color Yellow Urine Appearance Slcloudy Urine pH 7.0 Ur Specific [place] 1.015 Urine Protein Negative Urine Glucose (UA) Negative Urine Ketones Negative Urine Blood Negative Urine Nitrite Negative Urine Bilirubin Negative Urine Urobilinogen Negative Ur Leukocyte Esterase Trace H Urine WBC (Auto) 5 Urine RBC (Auto) 1 Ur Epithelial Cells Rare Urine Bacteria Rare Urine Mucus Rare [place] 0 L RPR Titer 06/04/17 06/04/17 06/16/17 07:00 07:00 08:30 WBC RBC Hgb Hct MCV MCH MCHC RDW Plt Count MPV Sodium 140 Potassium 4.3 Chloride 109 H Carbon Dioxide 24 Anion Gap 7 L BUN 13 Creatinine 0.8 Creat Clearance w eGFR > 60 Random Glucose 91 Calcium 8.8 Total Bilirubin 0.8 D AST 24 ALT 34 D Alkaline Phosphatase 66 D Total Protein 7.2 Albumin 4.2 Urine Color Urine Appearance Urine pH Ur Specific [place] Urine Protein Urine Glucose (UA) Urine Ketones Urine Blood Urine Nitrite Urine Bilirubin Urine Urobilinogen Ur Leukocyte Esterase Urine WBC (Auto) Urine RBC (Auto) Ur Epithelial Cells Urine Bacteria Urine Mucus [place] 0.5 L RPR Titer Nonreactive Assessment: 06/17/17 17:29 benadryl 50mg qhs for sleep, 100mg hydroxzyzine x1 wise now then hydroxyzine 50mg bid during the day.
[2017-06-17] MEDS ORDERED: hydrOXYzine HCL 25 MG TABLET (FP) PO ONE (18:00)
[2017-06-17] MEDS: OLANZapine 10 MG TABLET PO SCH (21:46)
[2017-06-17] MEDS: diphenhydrAMINE HCL 25 MG CAPSULE (FP) PO SCH (21:46)
[2017-06-17] MEDS: traZODone HCL 50 MG TABLET (FP) PO SCH (21:46)
[2017-06-17] MEDS: MONTELUKAST NA 5 MG TAB.CHEW PO SCH (21:47)
[2017-06-17] MEDS: THIAMINE HCL 100 MG TABLET (FP) PO SCH (21:48)
[2017-06-18] MEDS ORDERED: PT OWN MED DRAWER 7, Y5N ONE ×2 (08:55→15:15)
[2017-06-18] MEDS ORDERED: diphenhydrAMINE HCL 50 MG CAPSULE PO SCH (10:00)
[2017-06-18] MEDS: ESCITALOPRAM OXALATE 10 MG TABLET (FP) PO SCH (10:46)
[2017-06-18] MEDS: PRENATAL VITAMINS W/ FOLIC ACID TABLET (FP) PO SCH (10:46)
[2017-06-18] MEDS: LITHIUM CARBONATE 300 MG CAPSULE (FP) PO SCH ×2 (10:46→21:52)
[2017-06-18] MEDS: NICOTINE 14 MG/24 HOURS TOPICAL PATCH TD SCH (10:46)
[2017-06-18] MEDS: BETAMETHASONE DIPR 0.05% CREAM 15 GM TUBE TP SCH ×2 (10:46→21:55)
[2017-06-18] MEDS: NICOTINE POLACRILEX 2 MG GUM BC PRN (10:49)
[2017-06-18] MEDS: hydrOXYzine HCL 25 MG TABLET (FP) PO SCH ×2 (12:12→16:38)
[2017-06-18] MEDS: ACETAMINOPHEN 325 MG TABLET (FP) PO PRN (14:29)
[2017-06-18] MEDS: MAG HYDROX/AL HYDROX/SIMETH 30 ML UNIT-DOSE CUP PO PRN (16:39)
[2017-06-18] MEDS: OLANZapine 10 MG TABLET PO SCH (21:52)
[2017-06-18] MEDS: traZODone HCL 100 MG TABLET (FP) PO SCH (21:52)
[2017-06-18] MEDS: diphenhydrAMINE HCL 25 MG CAPSULE (FP) PO SCH (21:52)
[2017-06-18] MEDS: MIRTAZAPINE 15 MG TABLET (FP) PO SCH (21:53)
[2017-06-18] MEDS: THIAMINE HCL 100 MG TABLET (FP) PO SCH (21:54)
[2017-06-18] MEDS: MONTELUKAST NA 5 MG TAB.CHEW PO SCH (21:54)
[2017-06-18] MEDS ORDERED: hydrOXYzine HCL 25 MG TABLET (FP) PO SCH (22:00)
[2017-06-19] MEDS ORDERED: PT OWN MED DRAWER 7, Y5N ONE ×3 (08:34→19:57)
[2017-06-19] MEDS: hydrOXYzine HCL 25 MG TABLET (FP) PO SCH ×2 (10:21→17:33)
[2017-06-19] MEDS: LITHIUM CARBONATE 300 MG CAPSULE (FP) PO SCH ×2 (10:21→21:38)
[2017-06-19] MEDS: BETAMETHASONE DIPR 0.05% CREAM 15 GM TUBE TP SCH ×2 (10:21→21:36)
[2017-06-19] MEDS: ESCITALOPRAM OXALATE 10 MG TABLET (FP) PO SCH (10:21)
[2017-06-19] MEDS: PRENATAL VITAMINS W/ FOLIC ACID TABLET (FP) PO SCH (10:22)
[2017-06-19] MEDS: NICOTINE POLACRILEX 2 MG GUM BC PRN (10:22)
[2017-06-19] MEDS: NICOTINE 14 MG/24 HOURS TOPICAL PATCH TD SCH (10:22)
[2017-06-19] MEDS: ACETAMINOPHEN 325 MG TABLET (FP) PO PRN (15:47)
[2017-06-19] MEDS: THIAMINE HCL 100 MG TABLET (FP) PO SCH (21:36)
[2017-06-19] MEDS: OLANZapine 10 MG TABLET PO SCH (21:37)
[2017-06-19] MEDS: MONTELUKAST NA 5 MG TAB.CHEW PO SCH (21:37)
[2017-06-19] MEDS: diphenhydrAMINE HCL 25 MG CAPSULE (FP) PO SCH (21:37)
[2017-06-19] MEDS: traZODone HCL 100 MG TABLET (FP) PO SCH (21:37)
[2017-06-19] MEDS: MIRTAZAPINE 15 MG TABLET (FP) PO SCH (21:38)
[2017-06-20] MEDS: hydrOXYzine HCL 25 MG TABLET (FP) PO SCH ×2 (09:14→17:01)
[2017-06-20] MEDS: LITHIUM CARBONATE 300 MG CAPSULE (FP) PO SCH ×2 (09:14→21:33)
[2017-06-20] MEDS: NICOTINE 14 MG/24 HOURS TOPICAL PATCH TD SCH (09:15)
[2017-06-20] MEDS: PRENATAL VITAMINS W/ FOLIC ACID TABLET (FP) PO SCH (09:15)
[2017-06-20] MEDS: NICOTINE POLACRILEX 2 MG GUM BC PRN (09:15)
[2017-06-20] MEDS: ESCITALOPRAM OXALATE 10 MG TABLET (FP) PO SCH (09:15)
[2017-06-20] MEDS: BETAMETHASONE DIPR 0.05% CREAM 15 GM TUBE TP SCH ×2 (09:16→21:30)
[2017-06-20] MEDS: ACETAMINOPHEN 325 MG TABLET (FP) PO PRN ×2 (11:03→21:32)
[2017-06-20] MEDS ORDERED: PT OWN MED DRAWER 7, Y5N ONE (14:26)
[2017-06-20] MEDS: IBUPROFEN 400 MG TABLET (FP) PO PRN (14:28)
[2017-06-20] MEDS: P-EPHED 60MG/TRIPROLIDI 2.5MG TABLET PO PRN (17:48)
[2017-06-20] MEDS: MONTELUKAST NA 5 MG TAB.CHEW PO SCH (21:30)
[2017-06-20] MEDS: diphenhydrAMINE HCL 25 MG CAPSULE (FP) PO SCH (21:32)
[2017-06-20] MEDS: MIRTAZAPINE 15 MG TABLET (FP) PO SCH (21:33)
[2017-06-20] MEDS: THIAMINE HCL 100 MG TABLET (FP) PO SCH (21:33)
[2017-06-20] MEDS: traZODone HCL 100 MG TABLET (FP) PO SCH (21:33)
[2017-06-20] MEDS: OLANZapine 10 MG TABLET PO SCH (21:59)
[2017-06-21] MEDS: P-EPHED 60MG/TRIPROLIDI 2.5MG TABLET PO PRN ×2 (08:55→17:22)
[2017-06-21] MEDS: ACETAMINOPHEN 325 MG TABLET (FP) PO PRN (08:55)
[2017-06-21] MEDS: hydrOXYzine HCL 25 MG TABLET (FP) PO SCH ×2 (10:26→17:21)
[2017-06-21] MEDS: PRENATAL VITAMINS W/ FOLIC ACID TABLET (FP) PO SCH (10:27)
[2017-06-21] MEDS: ESCITALOPRAM OXALATE 10 MG TABLET (FP) PO SCH (10:27)
[2017-06-21] MEDS: LITHIUM CARBONATE 300 MG CAPSULE (FP) PO SCH ×2 (10:27→21:41)
[2017-06-21] MEDS: BETAMETHASONE DIPR 0.05% CREAM 15 GM TUBE TP SCH ×2 (10:27→21:42)
[2017-06-21] MEDS: NICOTINE 14 MG/24 HOURS TOPICAL PATCH TD SCH (10:28)
[2017-06-21] MEDS ORDERED: PT OWN MED DRAWER 7, Y5N ONE ×3 (17:16→21:43)
[2017-06-21] MEDS: IBUPROFEN 400 MG TABLET (FP) PO PRN (17:21)
[2017-06-21] MEDS: diphenhydrAMINE HCL 25 MG CAPSULE (FP) PO SCH (21:40)
[2017-06-21] MEDS: THIAMINE HCL 100 MG TABLET (FP) PO SCH (21:40)
[2017-06-21] MEDS: MIRTAZAPINE 15 MG TABLET (FP) PO SCH (21:41)
[2017-06-21] MEDS: traZODone HCL 100 MG TABLET (FP) PO SCH (21:41)
[2017-06-21] MEDS: OLANZapine 10 MG TABLET PO SCH (21:41)
[2017-06-21] MEDS: MONTELUKAST NA 5 MG TAB.CHEW PO SCH (21:42)
[2017-06-22] MEDS ORDERED: PT OWN MED DRAWER 7, Y5N ONE ×2 (08:42→09:01)
[2017-06-22] MEDS: IBUPROFEN 400 MG TABLET (FP) PO PRN ×2 (08:58→17:11)
[2017-06-22] MEDS: P-EPHED 60MG/TRIPROLIDI 2.5MG TABLET PO PRN ×2 (08:58→15:41)
[2017-06-22] MEDS: ESCITALOPRAM OXALATE 10 MG TABLET (FP) PO SCH (09:00)
[2017-06-22] MEDS: BETAMETHASONE DIPR 0.05% CREAM 15 GM TUBE TP SCH ×2 (09:00→21:44)
[2017-06-22] MEDS: LITHIUM CARBONATE 300 MG CAPSULE (FP) PO SCH ×2 (09:00→21:42)
[2017-06-22] MEDS: PRENATAL VITAMINS W/ FOLIC ACID TABLET (FP) PO SCH (09:00)
[2017-06-22] MEDS: NICOTINE 14 MG/24 HOURS TOPICAL PATCH TD SCH (09:00)
[2017-06-22] MEDS: hydrOXYzine HCL 25 MG TABLET (FP) PO SCH ×2 (09:01→17:11)
--- NOTE | 2017-06-22 17:20 | PN ---
S Progress Note (SOAP) Subjective: Patient c/o headache x 1 week and believes it's stress related because has been feeling stressed out. As per patient, sometimes she would feel shooting pain across her forehead. She reports that the headache decreased with taking motrin or tylenol but it doesn't actually goes away. Pain scale presently reported as 7 /10. As per patient, she has not been sleeping and only slept for 1 hour while on trazodone 100mg and that she slept only 21/2 hours when she was taking trazodone 150mg. Headache most likely stress and insomnia related. Patient agreed to see psychiatrist for evaluation of insomnia. Objective: 06/22/17 17:18 Last Vital Signs Temp Pulse Resp BP Pulse Ox 98.3 F 76 18 136/86 06/22/17 07:26 06/22/17 07:26 06/22/17 07:26 06/22/17 07:26 Laboratory Tests 06/03/17 06/04/17 06/04/17 23:15 07:00 07:00 WBC 6.0 RBC 3.93 Hgb 11.9 Hct 36.2 MCV 92.2 MCH 30.4 MCHC 33.0 RDW 12.3 Plt Count 308 MPV 8.6 Sodium Potassium Chloride Carbon Dioxide Anion Gap BUN Creatinine Creat Clearance w eGFR Random Glucose Calcium Total Bilirubin AST ALT Alkaline Phosphatase Total Protein Albumin Urine Color Yellow Urine Appearance Slcloudy Urine pH 7.0 Ur Specific [place] 1.015 Urine Protein Negative Urine Glucose (UA) Negative Urine Ketones Negative Urine Blood Negative Urine Nitrite Negative Urine Bilirubin Negative Urine Urobilinogen Negative Ur Leukocyte Esterase Trace H Urine WBC (Auto) 5 Urine RBC (Auto) 1 Ur Epithelial Cells Rare Urine Bacteria Rare Urine Mucus Rare [place] 0 L RPR Titer 06/04/17 06/04/17 06/16/17 07:00 07:00 08:30 WBC RBC Hgb Hct MCV MCH MCHC RDW Plt Count MPV Sodium 140 Potassium 4.3 Chloride 109 H Carbon Dioxide 24 Anion Gap 7 L BUN 13 Creatinine 0.8 Creat Clearance w eGFR > 60 Random Glucose 91 Calcium 8.8 Total Bilirubin 0.8 D AST 24 ALT 34 D Alkaline Phosphatase 66 D Total Protein 7.2 Albumin 4.2 Urine Color Urine Appearance Urine pH Ur Specific [place] Urine Protein Urine Glucose (UA) Urine Ketones Urine Blood Urine Nitrite Urine Bilirubin Urine Urobilinogen Ur Leukocyte Esterase Urine WBC (Auto) Urine RBC (Auto) Ur Epithelial Cells Urine Bacteria Urine Mucus [place] 0.5 L RPR Titer Nonreactive Labs noted Assessment: 06/22/17 17:18 Patient seen for headache; noted with c/o insomnia Plan: Headache most likely r/t stress and insomnia: continue motrin and tylenol prn, encouraged relaxation techniques (deep breathing exercises, watching TV, playing games with staff/peers, reading a book etc.) Insomnia: psychiatry consult
[2017-06-22] MEDS: COLLOIDAL OATMEAL 1 BAR EACH TP PRN (19:07)
[2017-06-22] MEDS: THIAMINE HCL 100 MG TABLET (FP) PO SCH (21:41)
[2017-06-22] MEDS: traZODone HCL 100 MG TABLET (FP) PO SCH (21:41)
[2017-06-22] MEDS: diphenhydrAMINE HCL 25 MG CAPSULE (FP) PO SCH (21:41)
[2017-06-22] MEDS: MIRTAZAPINE 15 MG TABLET (FP) PO SCH (21:42)
[2017-06-22] MEDS: OLANZapine 10 MG TABLET PO SCH (21:42)
[2017-06-22] MEDS: MONTELUKAST NA 5 MG TAB.CHEW PO SCH (21:43)
[2017-06-23] MEDS: P-EPHED 60MG/TRIPROLIDI 2.5MG TABLET PO PRN ×2 (08:07→17:36)
[2017-06-23] MEDS: IBUPROFEN 400 MG TABLET (FP) PO PRN (08:09)
[2017-06-23] MEDS: hydrOXYzine HCL 25 MG TABLET (FP) PO SCH ×2 (10:28→17:35)
[2017-06-23] MEDS: BETAMETHASONE DIPR 0.05% CREAM 15 GM TUBE TP SCH ×2 (10:28→21:34)
[2017-06-23] MEDS: NICOTINE POLACRILEX 2 MG GUM BC PRN (10:29)
[2017-06-23] MEDS: LITHIUM CARBONATE 300 MG CAPSULE (FP) PO SCH ×2 (10:29→21:31)
[2017-06-23] MEDS: PRENATAL VITAMINS W/ FOLIC ACID TABLET (FP) PO SCH (10:29)
[2017-06-23] MEDS: NICOTINE 14 MG/24 HOURS TOPICAL PATCH TD SCH (10:29)
[2017-06-23] MEDS: ESCITALOPRAM OXALATE 10 MG TABLET (FP) PO SCH (10:29)
--- NOTE | 2017-06-23 13:55 | PN ---
Psychiatric Progress Note Vital Signs: Vital Signs Period Temp Pulse Resp BP Sys/Singh Pulse Ox Last 24 Hr 98.4 F 76 18-18 127/84 Date of Session: 06/23/17 Chief Complaint:: Discharge visit Current Medications: Active Medications Generic Name Dose Route Start Last Admin Trade Name Freq PRN Reason Stop Dose Admin Acetaminophen 975 mg 06/20/17 13:33 06/21/17 08:55 Tylenol - PO 975 mg Q8H PRN Administration HEADACHE Al Hydroxide/Mg Hydroxide 30 ml 06/03/17 16:44 06/18/17 16:39 Mylanta Oral Suspension - PO 30 ml Q6H PRN Administration DYSPEPSIA Albuterol Sulfate 2 puff 06/13/17 20:15 06/17/17 10:41 Ventolin Hfa Inhaler - IH 2 puff Q4H PRN Administration SHORT OF BREATH/WHEEZING Betamethasone Dipropionate 1 applic 06/07/17 13:45 06/23/17 10:28 Diprosone 0.05% Cream - TP 1 applic BID SARIAH Administration Colloidal Oatmeal 1 applic 06/07/17 12:46 06/22/17 19:07 Aveeno Soap - TP 1 applic DAILY PRN Administration HYGEINE Diphenhydramine HCl 50 mg 06/17/17 22:00 06/22/17 21:41 Benadryl - PO 50 mg HS SARIAH Administration Escitalopram Oxalate 10 mg 06/05/17 10:00 06/23/17 10:29 Lexapro - PO 10 mg DAILY SARIAH Administration Eucalyptus/Menthol/Phenol/Sorbitol 1 each 06/03/17 16:44 Cepastat Lozenge - MM Q4H PRN SORE THROAT Guaifenesin 10 ml 06/03/17 16:44 Robitussin Dm - PO Q6H PRN COUGH Hydroxyzine HCl 50 mg 06/18/17 11:53 06/23/17 10:28 Atarax - PO 50 mg BID@1000,1700 SARIAH Administration Ibuprofen 800 mg 06/20/17 13:34 06/23/17 08:09 Motrin - PO 800 mg Q8H PRN Administration SEVERE PAIN [place] Carbonate 300 mg 06/12/17 22:00 06/23/17 10:29 Eskalith - PO 300 mg BID SARIAH Administration Loperamide HCl 4 mg 06/03/17 16:44 Imodium - PO Q6H PRN DIARRHEA Magnesium Citrate 300 ml 06/03/17 16:44 Citroma - PO Q48H PRN CONSTIPATION Magnesium Hydroxide 30 ml 06/03/17 16:44 06/22/17 12:55 Milk Of Magnesia - PO 30 ml DAILY PRN Administration CONSTIPATION Mirtazapine 15 mg 06/18/17 22:00 06/22/17 21:42 Remeron - PO 15 mg HS SARIAH Administration Montelukast Sodium 5 mg 06/17/17 22:00 06/22/17 21:43 Singulair - PO 5 mg HS SARIAH Administration Nicotine 14 mg 06/03/17 18:00 06/23/17 10:29 Nicoderm Patch - TD Not Given DAILY SARIAH Nicotine Polacrilex 2 mg 06/03/17 16:44 06/23/17 10:29 Nicorette Gum - BC 2 mg Q2H PRN Administration NICOTINE REPLACEMENT RX Olanzapine 20 mg 06/04/17 22:00 06/22/17 21:42 Zyprexa - PO 20 mg HS SARIAH Administration Multivit/Folic Acid/Iron 1 tab 06/04/17 10:00 06/23/17 10:29 Vitamins (Sjr) - PO 1 tab DAILY SARIAH Administration Pseudoephedrine/Triprolidine 1 combo 06/03/17 16:44 06/23/17 08:07 Actifed - PO 1 combo TID PRN Administration NASAL CONGESTION Thiamine HCl 100 mg 06/03/17 22:00 06/22/17 21:41 Vitamin B1 - PO 100 mg HS SARIAH Administration Trazodone HCl 100 mg 06/18/17 22:00 06/22/17 21:41 Desyrel - PO 100 mg HS SARIAH Administration Current Side Effect: No Lab tests ordered: No Lab tests reviewed: Yes Provider note:: Patient will complete this program tomorrow 06/24/17 .She has met her treatment goals and will continue to address her issues on outpatient basis [facility].Patient reports finding that current medications:Lexapro 10 mg po daily,Trazodone 100 mg po hs,Zyprexa 5 mg po hs and help to cope with insomnia,depression,anxiety,mood swings.Scripts for 30 provided. Patient identifies areas of difficulties,supportivee therapy proivided focusing on relapse prevention. Total face to face time:: 25 Psychiatric Treatment Plan - Problem List (1) Alcohol dependence Current Visit: Yes (2) Benzodiazepine abuse Current Visit: Yes (3) Cannabis dependence Current Visit: Yes (4) Dry skin dermatitis Current Visit: Yes (5) Bipolar disorder Current Visit: Yes Comment: As per self-report.Currrently on medications. (6) Nicotine dependence Current Visit: Yes Qualifiers:
[2017-06-23] MEDS ORDERED: diphenhydrAMINE HCL 50 MG CAPSULE PO PRN (16:05)
[2017-06-23] MEDS: ACETAMINOPHEN 325 MG TABLET (FP) PO PRN (17:36)
[2017-06-23] MEDS: OLANZapine 10 MG TABLET PO SCH (21:31)
[2017-06-23] MEDS: traZODone HCL 100 MG TABLET (FP) PO SCH (21:31)
[2017-06-23] MEDS: MIRTAZAPINE 15 MG TABLET (FP) PO SCH (21:31)
[2017-06-23] MEDS: THIAMINE HCL 100 MG TABLET (FP) PO SCH (21:31)
[2017-06-23] MEDS: MONTELUKAST NA 5 MG TAB.CHEW PO SCH (21:32)
[2017-06-24] MEDS: IBUPROFEN 400 MG TABLET (FP) PO PRN ×2 (08:57→21:29)
[2017-06-24] MEDS: P-EPHED 60MG/TRIPROLIDI 2.5MG TABLET PO PRN ×2 (08:58→17:31)
[2017-06-24] MEDS: LITHIUM CARBONATE 300 MG CAPSULE (FP) PO SCH ×2 (09:38→21:26)
[2017-06-24] MEDS: ESCITALOPRAM OXALATE 10 MG TABLET (FP) PO SCH (09:38)
[2017-06-24] MEDS: hydrOXYzine HCL 25 MG TABLET (FP) PO SCH ×2 (09:38→17:30)
[2017-06-24] MEDS: BETAMETHASONE DIPR 0.05% CREAM 15 GM TUBE TP SCH ×2 (09:39→21:30)
[2017-06-24] MEDS: PRENATAL VITAMINS W/ FOLIC ACID TABLET (FP) PO SCH (09:39)
[2017-06-24] MEDS: NICOTINE POLACRILEX 2 MG GUM BC PRN (09:39)
[2017-06-24] MEDS: NICOTINE 14 MG/24 HOURS TOPICAL PATCH TD SCH (09:39)
[2017-06-24] MEDS: ACETAMINOPHEN 325 MG TABLET (FP) PO PRN (14:23)
[2017-06-24] MEDS ORDERED: PT OWN MED DRAWER 7, Y5N ONE ×2 (14:45→21:27)
[2017-06-24] MEDS: THIAMINE HCL 100 MG TABLET (FP) PO SCH (21:26)
[2017-06-24] MEDS: OLANZapine 10 MG TABLET PO SCH (21:26)
[2017-06-24] MEDS: traZODone HCL 100 MG TABLET (FP) PO SCH (21:26)
[2017-06-24] MEDS: MIRTAZAPINE 15 MG TABLET (FP) PO SCH (21:29)
[2017-06-24] MEDS: MONTELUKAST NA 5 MG TAB.CHEW PO SCH (21:30)
[2017-06-25] MEDS: ACETAMINOPHEN 325 MG TABLET (FP) PO PRN (06:53)
[2017-06-25 07:42] VITALS: BP 142/92; PULSE 76; TEMP 98.1
[2017-06-25] MEDS ORDERED: PT OWN MED DRAWER 7, Y5N ONE (08:31)
[2017-06-25] MEDS: P-EPHED 60MG/TRIPROLIDI 2.5MG TABLET PO PRN (09:46)
[2017-06-25] MEDS: hydrOXYzine HCL 25 MG TABLET (FP) PO SCH (09:46)
[2017-06-25] MEDS: BETAMETHASONE DIPR 0.05% CREAM 15 GM TUBE TP SCH (09:46)
[2017-06-25] MEDS: NICOTINE 14 MG/24 HOURS TOPICAL PATCH TD SCH (09:46)
[2017-06-25] MEDS: ESCITALOPRAM OXALATE 10 MG TABLET (FP) PO SCH (09:46)
[2017-06-25] MEDS: PRENATAL VITAMINS W/ FOLIC ACID TABLET (FP) PO SCH (09:46)
[2017-06-25] MEDS: LITHIUM CARBONATE 300 MG CAPSULE (FP) PO SCH (09:46)
[2017-06-25] MEDS: NICOTINE POLACRILEX 2 MG GUM BC PRN (09:48)
== END 2017-06-25 10:15 | disposition home or self-care (01) | DRG 772 ==
LOC: YASAS 12:26 → Y3E 17:41 → UNDODISIN 06-24 10:29
PROVIDERS: ADMIT Psychiatry & Neurology Psychiatry; ATTEND Psychiatry & Neurology Psychiatry
PROC: HZ42ZZZ Group Counseling for Substance Abuse Treatment, Cognitive-Behavioral (ICD-10-PCS; principal; 2017-06-03)
DX: F10.20 Alcohol dependence, uncomplicated (principal); F12.20 Cannabis dependence, uncomplicated; F17.210 Nicotine dependence, cigarettes, uncomplicated; G47.00 Insomnia, unspecified
CPT/HCPCS: 36415; 80053; 80178; 81003; 81015; 85027; 86593; 93005; 93010

== ENCOUNTER 2018-05-16 09:11 | Inpatient (IN) | payer OTHER ==
[2018-05-16 09:29] VITALS: BMI 34.5
--- NOTE | 2018-05-16 11:02 | HP ---
CIWA Score Nausea/Vomitin Muscle Tremors: 2 Anxiety: 2 Agitation: 2 Paroxysmal Sweats: 1-Minimal Palms Moist Orientation: 0-Oriented Tacttile Disturbances: 1-Very Mild Itch/Numbness Auditory Disturbances: 1-Very Mild Visual Disturbances: 0-None Headache: 2-Mild CIWA-Ar Total Score: 13 - Admission Criteria OASAS Guidelines: Admission for Medically Managed Detox: Requires at least one of the followin. CIWA greater than 12 2. Seizures within the past 24 hours 3. Delirium tremens within the past 24 hours 4. Hallucinations within the past 24 hours 5. Acute intervention needed for co occurring medical disorder 6. Acute intervention needed for co occurring psychiatric disorder 7. Severe withdrawal that cannot be handled at a lower level of care (continued vomiting, continued diarrhea, abnormal vital signs) requiring intravenous medication and/or fluids 8. Patient presents the following: CIWA greater than 12 Admission Criteria Met: Admission criteria met Admission ROS BHS - HPI Chief Complaint: i need help to stop drinking alcohol Allergies/Adverse Reactions: Allergies Allergy/AdvReac Type Severity Reaction Status Date / Time Penicillins Allergy Severe Swelling Verified 05/16/18 09:44 History of Present Illness: this 43 years old female with alcohol dependence,seeking alcohol detox, withdrawal symptom,seen in [facility] last night for pain in the knee and left leg last detox 05/03/17 to 05/07/17 ,last rehab 06/03/17 to 06/27/17 nicotine dependence bipolar disorder non compliance no medication for 2 weeks plan for rehab after detox Exam Limitations: No Limitations - Ebola screening Have you traveled outside of the country in the last 21 days: No Have you had contact with anyone from an Ebola affected area: No Have you been sick,other than usual withdrawal symptoms: No Do you have a fever: No - Review of Systems Constitutional: Loss of Appetite, Malaise, Night Sweats, Changes in sleep, Weakness EENT: reports: Nose Congestion Respiratory: reports: No Symptoms reported (brinchitis), Other Cardiac: reports: No Symptoms Reported GI: reports: Nausea, Poor Appetite, Abdominal cramping : reports: No Symptoms Reported Musculoskeletal: reports: Back Pain, Muscle Pain Integumentary: reports: Dryness Neuro: reports: Tremors Endocrine: reports: No Symptoms Reported Hematology: reports: No Symptoms Reported Psychiatric: reports: No Sypmtoms Reported, Judgement Intact, Mood/Affect Appropiate, Orientated x3 (bipolar disorder) Patient History - Patient Medical History Hx Anemia: No Hx Asthma: No Hx Chronic Obstructive Pulmonary Disease (COPD): No Hx Cancer: No Hx Cardiac Disorders: Yes (HEART MURMUR) Hx Congestive Heart Failure: No Hx Hypertension: No Hx Hypercholesterolemia: No Hx Pacemaker: No HX Cerebrovascular Accident: No Hx Seizures: No Hx Dementia: No Hx Diabetes: No Hx Gastrointestinal Disorders: No Hx Liver Disease: No Hx Genitourinary Disorders: No Hx Sexually Transmitted Disorders: No Hx Renal Disease (ESRD): No Hx Thyroid Disease: No Hx Human Immunodeficiency Virus (HIV): No Hx Hepatitis C: No Hx Depression: Yes Hx Suicide Attempt: No Hx Bipolar Disorder: Yes Hx Schizophrenia: No Other Medical History: no suicidal,no homicidal, - Patient Surgical History Past Surgical History: Yes Hx Neurologic Surgery: No Hx Cataract Extraction: No Hx Cardiac Surgery: No Hx Lung Surgery: No Hx Breast Surgery: No Hx Breast Biopsy: No Hx Abdominal Surgery: No Hx Appendectomy: No Hx Cholecystectomy: Yes (age 12) Hx Genitourinary Surgery: No Hx Section: No Hx Orthopedic Surgery: No Hx Hysterectomy: No Anesthesia Reaction: No - PPD History Previous Implant?: Yes Documented Results: Negative w/o proof Date: 03/10/17 Results: 0MM PPD to be Administered?: Yes - Reproductive History Patient is a Female of Child Bearing Age (11 -55 yrs old): Yes Last Menstrual Period: 04/27/18 Patient : No - Smoking Cessation Smoking history: Current every day smoker Have you smoked in the past 12 months: Yes Aproximately how many cigarettes per day: 6 Cigars Per Day: 0 Hx Chewing Tobacco Use: No Initiated information on smoking cessation: Yes 'Breaking Loose' booklet given: 05/16/18 - Substance & Tx. History Hx Alcohol Use: Yes Hx Substance Use: No Substance Use Type: Alcohol Hx Substance Use Treatment: Yes ([facility] 05/03/17 to 05/07/17 detox) - Substances Abused Alcohol Route: Oral Frequency: Daily Amount used: 1 liter of Gin Age of first use: 14 Date of Last Use: 05/15/18 Family Disease History - Family Disease History Family Disease History: Heart Disease: Mother, Other: Sister (alcoholism) Admission Physical Exam BHS - Vital Signs Vital Signs: Vital Signs - 24 hr 11/26/18 09:18 Temperature 96.1 F L Pulse Rate 72 Respiratory 18 Rate Blood Pressure 116/72 - Physical General Appearance: Yes: Moderate Distress, Tremorous, Irritable, Sweating, Anxious HEENTM: Yes: Normal ENT Inspection, SHASHI, Pharynx Normal Respiratory: Yes: Lungs Clear, Normal Breath Sounds, No Respiratory Distress Neck: Yes: Within Normal Limits, Supple, Trachea in good position Breast: Yes: Breast Exam Deferred Cardiology: Yes: Within Normal Limits, Regular Rhythm, Regular Rate, S1, S2 Abdominal: Yes: Within Normal Limits, Normal Bowel Sounds, Non Tender, Flat, Soft Genitourinary: Yes: Within Normal Limits Back: Yes: Muscle Spasm Extremities: Yes: Within Normal Limits, Normal Range of Motion, Tremors, Other ( pain in left knee) Neurological: Yes: potato chip sorter II-XII NML intact, Alert, Motor Strength 5/5, Normal Mood /Affect Integumentary: Yes: Dry Lymphatic: Yes: Within Normal Limits - Diagnostic (1) Alcohol dependence with uncomplicated withdrawal Current Visit: Yes Status: Chronic (2) Bipolar disorder Current Visit: No Status: Deleted Comment: As per self-report.Currrently on medications. (3) Arthritis of left knee Current Visit: Yes Status: Chronic (4) Nicotine dependence Current Visit: Yes Status: Chronic Qualifiers: Nicotine product type: cigarettes Substance use status: uncomplicated Qualified Code(s): F17.210 - Nicotine dependence, cigarettes, uncomplicated Cleared for Admission [facility] - Detox or Rehab [facility] Level of Care: Medically Managed Detox Regimen/Protocol: Librium [facility] Breath Alcohol Content Breath Alcohol Content: 0 Urine Pregancy Test - Result Urine Test Results: Negative- NO Line Present Urine Drug Screen - Results Drug Screen Negative: No Urine Drug Screen Results: MET-Methamphetamine
[2018-05-16] MEDS ORDERED: MENTHOL/PHENOL 1 EACH UD MM PRN (11:13)
[2018-05-16] MEDS ORDERED: MAGNESIUM HYDROX 2400MG/30ML ORAL SUSPENSION 30 ML CUP PO PRN (11:13)
[2018-05-16] MEDS ORDERED: hydrOXYzine PAMOATE 50 MG CAPSULE (FP) PO PRN (11:13)
[2018-05-16] MEDS ORDERED: NICOTINE POLACRILEX 2 MG GUM BUC PRN (11:13)
[2018-05-16] MEDS ORDERED: MAGNESIUM CITRATE 300 ML BOTTLE PO PRN (11:13)
[2018-05-16] MEDS ORDERED: LOPERAMIDE HCL 2 MG CAPSULE PO PRN (11:13)
[2018-05-16] MEDS ORDERED: ACETAMINOPHEN 325 MG TABLET (FP) PO PRN (11:13)
[2018-05-16] MEDS ORDERED: guaiFENesin/D-METHORPHAN HB 10 ML UNIT-DOSE CUPS PO PRN (11:13)
[2018-05-16] MEDS ORDERED: MAG HYDROX/AL HYDROX/SIMETH 30 ML UNIT-DOSE CUP PO PRN (11:13)
[2018-05-16] MEDS ORDERED: P-EPHED 60MG/TRIPROLIDI 2.5MG TABLET PO PRN (11:13)
[2018-05-16] MEDS: chlordiazePOXIDE HCL 25 MG CAPSULE PO PRN (12:19)
--- NOTE | 2018-05-16 14:03 | CONSULT ---
[facility] Psychiatric Consult - Data Date of interview: 05/16/18 Admission source: [facility] Identifying data: This is 43 years old obese female, , mother of four, domiciled, on [place], with history of Bipolar Disorder, histopry of psychiatric hospiotalizations, with alcohol, cannabis and nicotine dependence,reporting withdrawal symptoms and seeking detox, seen in [facility] last night for. pain in the knee and left leg. Substance Abuse History: Smoking history: Current every day smoker. Have you smoked in the past 12 months: Yes. Aproximately how many cigarettes per day: 6. Cigars Per Day: 0. Hx Chewing Tobacco Use: No. Initiated information on smoking cessation: Yes. 'Breaking Loose' booklet given: 05/16/18. - Substance & Tx. History. Hx Alcohol Use: Yes. Hx Substance Use: No. Substance Use Type : Alcohol. Hx Substance Use Treatment: Yes ([facility] 05/03/17 to 05/07/17 detox). - Substances Abused. Alcohol. Route: Oral. Frequency: Daily. Amount used : 1 liter of Gin. Age of first use: 14. Date of Last Use: 05/15/18 Medical History: Left Knee Arthritis, Obesityu, COPD, Pedal Edema, GERD, Psychiatric History: Patient has a history p0of Bipolar Disorder with the most recent p-sychiatric admissioj on: 2017 at [facility] for safety. Yesi allen on: Zyprexa 15mg po bid. Trazodone 150mg po qhs. Bsnadryl 100mg po qhs. [place] 300mg po bid. Topamax 50mg po bid Physical/Sexual Abuse/Trauma History: Denies Additional Comment: Zyprexa 15mg po bid. Trazodone 150mg po qhs. Bsnadryl 100mg po qhs. [place] 300mg po bid. Topamax 50mg po bid Mental Status Exam - Mental Status Exam Alert and Oriented to: Place, Person Cognitive Function: Fair Patient Appearance: Unkempt Mood: Apprehensive Affect: Mood Congruent Patient Behavior: Talkative, Cooperative Speech Pattern: Appropriate Voice Loudness: Mildly Soft/Quiet Thought Process: Goal Oriented Thought Disorder: Being Controlled Hallucinations: Denies Suicidal Ideation: Denies Homicidal Ideation: Denies Insight/Judgement: Fair Sleep: Difficulty falling asleep Appetite: Weight gain Muscle strength/Tone: Moderate Hypotonicity Gait/Station: Deferred Additional Comments: Zyprexa 15mg po bid. Trazodone 150mg po qhs. Bsnadryl 100mg po qhs. [place] 300mg po bid. Topamax 50mg po bid Psychiatric Findings - Problem List (Leslie 1, 2,3) (1) Arthritis of left knee Current Visit: Yes Status: Acute (2) Alcohol dependence Current Visit: No Status: Acute (3) Benzodiazepine abuse Current Visit: No Status: Acute (4) Cannabis abuse Current Visit: No Status: Acute (5) Cannabis dependence Current Visit: No Status: Acute (6) Headache Current Visit: No Status: Acute (7) Pedal edema Current Visit: No Status: Acute (8) Bipolar disorder Current Visit: No Status: Chronic Comment: As per self-report.Currrently on medications. (9) COPD (chronic obstructive pulmonary disease) Current Visit: No Status: Chronic Qualifiers: COPD type: emphysema Emphysema type: unspecified Qualified Code(s): J43.9 - Emphysema, unspecified (10) GERD (gastroesophageal reflux disease) Current Visit: No Status: Chronic Qualifiers: (11) Muscle spasm Current Visit: No Status: Chronic (12) Seasonal allergies Current Visit: No Status: Chronic (13) Weight loss Current Visit: No Status: Chronic - Initial Treatment Plan Initial Treatment Plan: Zyprexa 15mg po bid. Trazodone 150mg po qhs. Bsnadryl 100mg po qhs. [place] 300mg po bid. Topamax 50mg po bid. [place] blood level
[2018-05-16] MEDS ORDERED: diphenhydrAMINE HCL 50 MG CAPSULE PO PRN (14:42)
[2018-05-16] MEDS: chlordiazePOXIDE HCL 25 MG CAPSULE PO SCH ×2 (18:00→22:33)
[2018-05-16 21:53] LABS: URINE APPEARANCE CLOUDY; URINE BILIRUBIN NEGATIVE (<2.0 mg/dL); URINE COLOR LTYELLOW; URINE GLUCOSE (UA) NEGATIVE (NEGATIVE); URINE KETONE NEGATIVE (NEGATIVE); URINE LEUK ESTERASE 1+ (NEGATIVE); URINE NITRITE NEGATIVE (NEGATIVE); URINE PROTEIN NEGATIVE (NEGATIVE); URINE UROBILINOGEN NEGATIVE mg/dL (0.2-1.0)
[2018-05-16] MEDS ORDERED: MELATONIN 5 MG TABLETS PO PRN (22:00)
[2018-05-16 22:05] LABS: EPI CELLS FEW /HPF (FEW); URINE MUCUS RARE
[2018-05-16] MEDS: DICLOFENAC SODIUM PO SCH (22:32)
[2018-05-16] MEDS: THIAMINE HCL 100 MG TABLET (FP) PO SCH (22:33)
[2018-05-16] MEDS: TOPIRAMATE 25 MG TABLET (FP) PO SCH (22:33)
[2018-05-16] MEDS: OLANZapine 7.5 MG TABLET PO SCH (22:33)
[2018-05-16] MEDS: LITHIUM CARBONATE 300 MG CAPSULE (FP) PO SCH (22:33)
[2018-05-16] MEDS: traZODone HCL 50 MG TABLET (FP) PO SCH (22:34)
[2018-05-16] MEDS: GABAPENTIN 300 MG CAPSULE (FP) PO SCH (22:34)
[2018-05-17] MEDS: chlordiazePOXIDE HCL 25 MG CAPSULE PO SCH ×4 (06:19→22:22)
[2018-05-17 10:26] LABS: HEMATOCRIT 36.8 % (32.4-45.2); HEMOGLOBIN 11.9 GM/dL (10.7-15.3); MCH 30.4 pg (25.7-33.7); MCHC 32.3 g/dl (32.0-36.0); MEAN CELL VOLUME 94.3 fl (80-96); MEAN PLT VOLUME 9.3 fl (7.5-11.1); PLATELET COUNT 271 K/MM3 (134-434); RDW 13.9 % (11.6-15.6); WHITE BLOOD COUNT 7.3 K/mm3 (4.0-10.0)
[2018-05-17] MEDS: LITHIUM CARBONATE 300 MG CAPSULE (FP) PO SCH ×2 (10:39→22:22)
[2018-05-17] MEDS: TOPIRAMATE 25 MG TABLET (FP) PO SCH ×2 (10:39→22:24)
[2018-05-17] MEDS: PRENATAL VITAMINS W/ FOLIC ACID TABLET (FP) PO SCH (10:39)
[2018-05-17] MEDS: OLANZapine 7.5 MG TABLET PO SCH ×2 (10:40→22:24)
[2018-05-17] MEDS: DICLOFENAC SODIUM PO SCH ×2 (10:40→22:22)
[2018-05-17] MEDS: GABAPENTIN 300 MG CAPSULE (FP) PO SCH ×2 (10:40→22:22)
[2018-05-17 11:00] LABS: ALBUMIN 4.5 g/dl (3.4-5.0); ALK PHOS 71 U/L (45-117); ANION GAP 9 MMOL/L (8-16); BILIRUBIN,TOTAL 0.4 mg/dL (0.2-1); BLOOD UREA NITROGEN 19 mg/dL (7-18); CALCIUM 8.8 mg/dL (8.5-10.1); CHLORIDE 107 mmol/L (98-107); CO2 25 mmol/L (21-32); CREATININE 0.8 mg/dL (0.55-1.3); GLUCOSE,RANDOM 56 mg/dL (74-106); POTASSIUM 4.2 mmol/L (3.5-5.1); SGOT/AST 26 U/L (15-37); SGPT/ALT 32 U/L (13-61); SODIUM 141 mmol/L (136-145); TOT PROT 7.5 g/dl (6.4-8.2)
--- NOTE | 2018-05-17 11:34 | PN ---
S CIWA - CIWA Score Nausea/Vomitin-No Nausea/No Vomiting Muscle Tremors: 3 Anxiety: 3 Agitation: 3 Paroxysmal Sweats: 3 Orientation: 0-Oriented Tacttile Disturbances: 0-None Auditory Disturbances: 0-None Visual Disturbances: 0-None Headache: 0-None Present CIWA-Ar Total Score: 12 S Progress Note (SOAP) Subjective: interrupted sleep agitation body aches sweats shakes Objective: 05/17/18 11:33 Vital Signs Temperature 99.0 F 05/17/18 09:35 Pulse Rate 101 H 05/17/18 09:35 Respiratory Rate 18 05/17/18 09:35 Blood Pressure 124/72 05/17/18 09:35 O2 Sat by Pulse Oximetry (%) Laboratory Tests 05/16/18 05/17/18 05/17/18 13:36 05:45 05:45 WBC 7.3 RBC 3.90 Hgb 11.9 Hct 36.8 MCV 94.3 MCH 30.4 MCHC 32.3 RDW 13.9 D Plt Count 271 MPV 9.3 Sodium 141 Potassium 4.2 Chloride 107 Carbon Dioxide 25 Anion Gap 9 BUN 19 H Creatinine 0.8 Creat Clearance w eGFR > 60 Random Glucose 56 L Calcium 8.8 Total Bilirubin 0.4 AST 26 ALT 32 Alkaline Phosphatase 71 Total Protein 7.5 Albumin 4.5 Urine Color Ltyellow Urine Appearance Cloudy Urine pH 5.0 D Ur Specific [place] 1.017 Urine Protein Negative Urine Glucose (UA) Negative Urine Ketones Negative Urine Blood Negative Urine Nitrite Negative Urine Bilirubin Negative Urine Urobilinogen Negative Ur Leukocyte Esterase 1+ H Urine WBC (Auto) 3 Urine RBC (Auto) 1 Ur Epithelial Cells Few Urine Mucus Rare aaox3 ambulating no acute distress Assessment: 05/17/18 11:34 withdrawal sx Plan: continue detox increase fluids
[2018-05-17] MEDS ORDERED: diphenhydrAMINE HCL 25 MG CAPSULE (FP) PO ONE (19:59)
[2018-05-17] MEDS: THIAMINE HCL 100 MG TABLET (FP) PO SCH (22:22)
[2018-05-17] MEDS: traZODone HCL 50 MG TABLET (FP) PO SCH (22:23)
[2018-05-18] MEDS: chlordiazePOXIDE HCL 25 MG CAPSULE PO SCH ×2 (06:20→10:15)
[2018-05-18] MEDS: chlordiazePOXIDE HCL 25 MG CAPSULE PO PRN (09:43)
[2018-05-18] MEDS: PRENATAL VITAMINS W/ FOLIC ACID TABLET (FP) PO SCH (09:43)
[2018-05-18] MEDS: LITHIUM CARBONATE 300 MG CAPSULE (FP) PO SCH ×2 (09:43→22:08)
[2018-05-18] MEDS: TOPIRAMATE 25 MG TABLET (FP) PO SCH ×2 (09:44→22:08)
[2018-05-18] MEDS: GABAPENTIN 300 MG CAPSULE (FP) PO SCH ×2 (09:44→22:08)
[2018-05-18] MEDS: DICLOFENAC SODIUM PO SCH ×2 (09:44→22:08)
[2018-05-18] MEDS: OLANZapine 7.5 MG TABLET PO SCH ×2 (09:44→22:08)
--- NOTE | 2018-05-18 11:58 | PN ---
[facility] CIWA - CIWA Score Nausea/Vomitin-No Nausea/No Vomiting Muscle Tremors: 3 Anxiety: 3 Agitation: 3 Paroxysmal Sweats: 2 Orientation: 0-Oriented Tacttile Disturbances: 0-None Auditory Disturbances: 0-None Visual Disturbances: 0-None Headache: 0-None Present CIWA-Ar Total Score: 11 S Progress Note (SOAP) Subjective: sweats anxiety Objective: 05/18/18 11:58 Vital Signs Temperature 98.1 F 05/18/18 09:20 Pulse Rate 84 05/18/18 09:20 Respiratory Rate 18 05/18/18 09:20 Blood Pressure 118/74 05/18/18 09:20 O2 Sat by Pulse Oximetry (%) Laboratory Tests 05/16/18 05/17/18 05/17/18 13:36 05:45 05:45 WBC 7.3 RBC 3.90 Hgb 11.9 Hct 36.8 MCV 94.3 MCH 30.4 MCHC 32.3 RDW 13.9 D Plt Count 271 MPV 9.3 Sodium 141 Potassium 4.2 Chloride 107 Carbon Dioxide 25 Anion Gap 9 BUN 19 H Creatinine 0.8 Creat Clearance w eGFR > 60 Random Glucose 56 L Calcium 8.8 Total Bilirubin 0.4 AST 26 ALT 32 Alkaline Phosphatase 71 Total Protein 7.5 Albumin 4.5 Urine Color Ltyellow Urine Appearance Cloudy Urine pH 5.0 D Ur Specific [place] 1.017 Urine Protein Negative Urine Glucose (UA) Negative Urine Ketones Negative Urine Blood Negative Urine Nitrite Negative Urine Bilirubin Negative Urine Urobilinogen Negative Ur Leukocyte Esterase 1+ H Urine WBC (Auto) 3 Urine RBC (Auto) 1 Ur Epithelial Cells Few Urine Mucus Rare [place] RPR Titer 05/17/18 05/17/18 05:45 05:45 WBC RBC Hgb Hct MCV MCH MCHC RDW Plt Count MPV Sodium Potassium Chloride Carbon Dioxide Anion Gap BUN Creatinine Creat Clearance w eGFR Random Glucose Calcium Total Bilirubin AST ALT Alkaline Phosphatase Total Protein Albumin Urine Color Urine Appearance Urine pH Ur Specific [place] Urine Protein Urine Glucose (UA) Urine Ketones Urine Blood Urine Nitrite Urine Bilirubin Urine Urobilinogen Ur Leukocyte Esterase Urine WBC (Auto) Urine RBC (Auto) Ur Epithelial Cells Urine Mucus Biddle 0.8 RPR Titer Nonreactive aaox3 ambulating no acute distress Assessment: 05/18/18 11:58 withdrawal sx Plan: continue detox increase fluids
[2018-05-18] MEDS: chlordiazePOXIDE 5 MG CAPSULE PO SCH ×2 (17:11→22:09)
[2018-05-18] MEDS: traZODone HCL 50 MG TABLET (FP) PO SCH (22:07)
[2018-05-18] MEDS: THIAMINE HCL 100 MG TABLET (FP) PO SCH (22:07)
[2018-05-19] MEDS: chlordiazePOXIDE 5 MG CAPSULE PO SCH ×2 (05:44→10:24)
[2018-05-19] MEDS: OLANZapine 7.5 MG TABLET PO SCH ×2 (10:23→22:10)
[2018-05-19] MEDS: TOPIRAMATE 25 MG TABLET (FP) PO SCH ×2 (10:23→22:10)
[2018-05-19] MEDS: DICLOFENAC SODIUM PO SCH ×2 (10:23→22:09)
[2018-05-19] MEDS: PRENATAL VITAMINS W/ FOLIC ACID TABLET (FP) PO SCH (10:23)
[2018-05-19] MEDS: GABAPENTIN 300 MG CAPSULE (FP) PO SCH ×2 (10:23→22:10)
[2018-05-19] MEDS: LITHIUM CARBONATE 300 MG CAPSULE (FP) PO SCH ×2 (10:23→22:10)
[2018-05-19] MEDS ORDERED: PATIENT'S OWN MEDICATION (NON-FORMULARY) (Betamethasone/Propylene Glyc [Betamethasone Dp A TP PRN (10:26)
--- NOTE | 2018-05-19 10:52 | PN ---
BHS Progress Note (SOAP) Subjective: i need my abx cream for my face feeling better tired Objective: 05/19/18 10:51 Vital Signs Temperature 98.2 F 05/19/18 10:06 Pulse Rate 84 05/19/18 10:06 Respiratory Rate 18 05/19/18 10:06 Blood Pressure 106/62 05/19/18 10:06 O2 Sat by Pulse Oximetry (%) aaox3 ambulating no acute distress Assessment: 05/19/18 10:51 mild withdrawal sx Plan: continue detox face cream abx ordered d/c in am
[2018-05-19] MEDS: BETAMETHASONE DIPR 0.05% OINTMENT 15 GM TUBE TP SCH ×2 (12:34→22:10)
[2018-05-19] MEDS: chlordiazePOXIDE HCL 10 MG CAPSULE PO SCH ×2 (17:39→22:10)
[2018-05-19] MEDS: traZODone HCL 50 MG TABLET (FP) PO SCH (22:09)
[2018-05-19] MEDS: THIAMINE HCL 100 MG TABLET (FP) PO SCH (22:10)
[2018-05-20] MEDS: chlordiazePOXIDE HCL 10 MG CAPSULE PO SCH (06:36)
[2018-05-20 08:00] VITALS: BP 108/54; PULSE 68; TEMP 97.5
--- NOTE | 2018-05-20 08:57 | DS ---
[facility] Detox Discharge Summary Admission Date: 05/16/18 Discharge Date: 05/20/18 - History Present History: Alcohol Dependence, Sedative Dependence - Physical Exam Results Vital Signs: Vital Signs Temperature 97.5 F L 05/20/18 07:59 Pulse Rate 68 05/20/18 07:59 Respiratory Rate 18 05/20/18 07:59 Blood Pressure 108/54 L 05/20/18 07:59 O2 Sat by Pulse Oximetry (%) - Treatment Hospital Course: Detox Protocol Followed, Detoxed Safely, Responded well, Discharged Condition Good, Rehab Referral Accepted - Medication Discharge Medications: Ambulatory Orders hydrOXYzine PAMOATE [Vistaril -] 50 mg PO HS 05/03/17 Gabapentin 300 mg PO BID 06/03/17 Betamethasone/Propylene Glyc [Betamethasone Dp Aug 0.05% Crm] 1 applic TP BID PRN 05/16/18 Diclofenac Sodium [Voltaren -] 75 mg PO BID 05/16/18 Diphenhydramine [Benadryl -] 50 mg PO DAILY PRN 05/16/18 Diphenhydramine [Benadryl Capsule -] 100 mg PO HS PRN #30 capsule 05/16/18 Ibuprofen 800 mg PO Q4H PRN 05/16/18 [place] Carbonate [Eskalith -] 300 mg PO BID #60 capsule 05/16/18 Olanzapine [Zyprexa] 15 mg PO BID #60 tablet 05/16/18 Topiramate [Topamax -] 50 mg PO BID #60 tablet 05/16/18 traZODone HCL [Trazodone HCl] 150 mg PO HS #30 tablet 05/16/18 - Diagnosis (1) Arthritis of left knee Current Visit: Yes Status: Chronic (2) Benzodiazepine abuse Current Visit: Yes Status: Chronic (3) Cannabis dependence, uncomplicated Current Visit: No Status: Acute (4) Dry skin dermatitis Current Visit: Yes Status: Chronic (5) Insomnia Current Visit: No Status: Acute (6) Substance induced mood disorder Current Visit: No Status: Acute (7) Alcohol dependence with uncomplicated withdrawal Current Visit: Yes Status: Chronic (8) Anxiety Current Visit: No Status: Chronic (9) COPD (chronic obstructive pulmonary disease) Current Visit: No Status: Chronic Qualifiers: COPD type: emphysema Emphysema type: unspecified Qualified Code(s): J43.9 - Emphysema, unspecified (10) GERD (gastroesophageal reflux disease) Current Visit: Yes Status: Chronic Qualifiers: (11) Nicotine dependence Current Visit: Yes Status: Chronic Qualifiers: Nicotine product type: cigarettes Substance use status: uncomplicated Qualified Code(s): F17.210 - Nicotine dependence, cigarettes, uncomplicated (12) Bipolar II disorder Current Visit: No Status: Suspected - AMA Did Patient Leave Against Medical Advice: No (referred to [facility] rehab)
[2018-05-20] MEDS: PRENATAL VITAMINS W/ FOLIC ACID TABLET (FP) PO SCH (09:28)
[2018-05-20] MEDS: DICLOFENAC SODIUM PO SCH (09:29)
[2018-05-20] MEDS: GABAPENTIN 300 MG CAPSULE (FP) PO SCH (09:29)
[2018-05-20] MEDS: LITHIUM CARBONATE 300 MG CAPSULE (FP) PO SCH (09:29)
[2018-05-20] MEDS: TOPIRAMATE 25 MG TABLET (FP) PO SCH (09:29)
[2018-05-20] MEDS: OLANZapine 7.5 MG TABLET PO SCH (09:29)
== END 2018-05-20 09:29 | disposition home or self-care (01) | DRG 775 ==
LOC: YASAS 09:11 → Y6N 11:20
PROC: HZ2ZZZZ Detoxification Services for Substance Abuse Treatment (ICD-10-PCS; principal; 2018-05-16)
DX: F10.230 Alcohol dependence with withdrawal, uncomplicated (principal); F13.10 Sedative, hypnotic or anxiolytic abuse, uncomplicated; F12.20 Cannabis dependence, uncomplicated; F17.210 Nicotine dependence, cigarettes, uncomplicated; F19.24 Other psychoactive substance dependence with psychoactive substance-induced mood disorder; F31.81 Bipolar II disorder; F41.9 Anxiety disorder, unspecified; R01.1 Cardiac murmur, unspecified; L85.3 Xerosis cutis; M13.861 Other specified arthritis, right knee; G47.00 Insomnia, unspecified; J43.9 Emphysema, unspecified; K21.9 Gastro-esophageal reflux disease without esophagitis; R51 Headache; R60.0 Localized edema; M62.838 Other muscle spasm; E66.9 Obesity, unspecified; Z68.34 Body mass index [BMI] 34.0-34.9, adult; Z88.0 Allergy status to penicillin
CPT/HCPCS: 36415; 80053; 80178; 81003; 81015; 85027; 86593

== ENCOUNTER 2018-06-10 10:58 | Inpatient (IN) | payer OTHER ==
[2018-06-10 11:28] VITALS: BMI 33.5
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
[2018-06-10] MEDS ORDERED: MAGNESIUM CITRATE 300 ML BOTTLE PO PRN (14:54)
[2018-06-10] MEDS ORDERED: MENTHOL/PHENOL 1 EACH UD MM PRN (14:54)
[2018-06-10] MEDS ORDERED: guaiFENesin/D-METHORPHAN HB 10 ML UNIT-DOSE CUPS PO PRN (14:54)
[2018-06-10] MEDS ORDERED: ACETAMINOPHEN 325 MG TABLET (FP) PO PRN (14:54)
[2018-06-10] MEDS ORDERED: P-EPHED 60MG/TRIPROLIDI 2.5MG TABLET PO PRN (14:54)
[2018-06-10] MEDS ORDERED: MAGNESIUM HYDROX 2400MG/30ML ORAL SUSPENSION 30 ML CUP PO PRN (14:54)
[2018-06-10] MEDS ORDERED: MAG HYDROX/AL HYDROX/SIMETH 30 ML UNIT-DOSE CUP PO PRN (14:54)
[2018-06-10] MEDS ORDERED: chlordiazePOXIDE HCL 25 MG CAPSULE PO PRN (14:54)
[2018-06-10] MEDS ORDERED: NICOTINE POLACRILEX 2 MG GUM BC PRN (14:54)
[2018-06-10] MEDS: chlordiazePOXIDE HCL 25 MG CAPSULE PO SCH ×2 (19:22→23:40)
[2018-06-10] MEDS ORDERED: MELATONIN 5 MG TABLETS PO PRN (22:00)
[2018-06-10] MEDS: CYCLOPENTOLATE HCL 1% OPHTH SOLN 2 ML BOTTLE OS SCH (23:40)
[2018-06-10] MEDS: traZODone HCL 50 MG TABLET (FP) PO SCH (23:40)
[2018-06-10] MEDS: LITHIUM CARBONATE 300 MG CAPSULE (FP) PO SCH (23:40)
[2018-06-10] MEDS: THIAMINE HCL 100 MG TABLET (FP) PO SCH (23:41)
[2018-06-10] MEDS: TOPIRAMATE 25 MG TABLET (FP) PO SCH (23:41)
[2018-06-10] MEDS: prednisoLONE ACETATE 1% OPHTH SUSP 5 ML BOTTLE OS SCH (23:41)
[2018-06-10] MEDS: BETAMETHASONE VALERATE 0.1% CREAM 15 GM TUBE TP SCH (23:41)
[2018-06-11] MEDS: chlordiazePOXIDE HCL 25 MG CAPSULE PO SCH ×4 (06:29→22:29)
[2018-06-11] MEDS: prednisoLONE ACETATE 1% OPHTH SUSP 5 ML BOTTLE OS SCH ×3 (06:30→22:31)
[2018-06-11] MEDS: PRENATAL VITAMINS W/ FOLIC ACID TABLET (FP) PO SCH (10:32)
[2018-06-11] MEDS: LITHIUM CARBONATE 300 MG CAPSULE (FP) PO SCH ×2 (10:32→22:29)
[2018-06-11] MEDS: TOPIRAMATE 25 MG TABLET (FP) PO SCH ×2 (10:33→22:29)
[2018-06-11] MEDS: BETAMETHASONE VALERATE 0.1% CREAM 15 GM TUBE TP SCH ×2 (10:33→22:32)
[2018-06-11] MEDS: CYCLOPENTOLATE HCL 1% OPHTH SOLN 2 ML BOTTLE OS SCH ×4 (10:34→22:32)
[2018-06-11 11:25] LABS: ALK PHOS 77 U/L (45-117); ANION GAP 8 MMOL/L (8-16); BILIRUBIN,TOTAL 0.4 mg/dL (0.2-1); BLOOD UREA NITROGEN 16 mg/dL (7-18); CALCIUM 8.7 mg/dL (8.5-10.1); CHLORIDE 112 mmol/L (98-107); CO2 21 mmol/L (21-32); CREATININE 0.8 mg/dL (0.55-1.3); GLUCOSE,RANDOM 80 mg/dL (74-106); HEMATOCRIT 35.4 % (32.4-45.2); HEMOGLOBIN 11.6 GM/dL (10.7-15.3); MCHC 32.8 g/dl (32.0-36.0); MEAN CELL VOLUME 94.3 fl (80-96); MEAN PLT VOLUME 9.3 fl (7.5-11.1); PLATELET COUNT 298 K/MM3 (134-434); POTASSIUM 3.9 mmol/L (3.5-5.1); RBC 3.76 M/mm3 (3.60-5.2); RDW 13.3 % (11.6-15.6); SGOT/AST 19 U/L (15-37); SGPT/ALT 26 U/L (13-61); SODIUM 140 mmol/L (136-145); WHITE BLOOD COUNT 5.3 K/mm3 (4.0-10.0)
--- NOTE | 2018-06-11 12:27 | PN ---
[facility] CIWA - CIWA Score Nausea/Vomitin-No Nausea/No Vomiting Muscle Tremors: 3 Anxiety: 3 Agitation: 4-Moderately Restless Paroxysmal Sweats: 3 Orientation: 0-Oriented Tacttile Disturbances: 0-None Auditory Disturbances: 0-None Visual Disturbances: 0-None Headache: 1-Very Mild CIWA-Ar Total Score: 14 S Progress Note (SOAP) Subjective: dry itchy skin sweats irritable agitation interrupted sleep Objective: 06/11/18 12:26 Vital Signs Temperature 98.8 F 06/11/18 10:33 Pulse Rate 77 06/11/18 10:33 Respiratory Rate 18 06/11/18 10:33 Blood Pressure 124/51 L 06/11/18 10:33 O2 Sat by Pulse Oximetry (%) Laboratory Tests 06/11/18 06/11/18 07:30 07:30 WBC 5.3 RBC 3.76 Hgb 11.6 Hct 35.4 MCV 94.3 MCH 31.0 MCHC 32.8 RDW 13.3 Plt Count 298 MPV 9.3 Sodium 140 Potassium 3.9 Chloride 112 H Carbon Dioxide 21 Anion Gap 8 BUN 16 Creatinine 0.8 Creat Clearance w eGFR > 60 Random Glucose 80 Calcium 8.7 Total Bilirubin 0.4 AST 19 ALT 26 Alkaline Phosphatase 77 Total Protein 7.0 Albumin 4.0 aaox3 ambulating no acute distress Assessment: 06/11/18 12:27 withdrawal sx Plan: continue detox increase fluids benadryl 25mg prn ordered
[2018-06-11] MEDS: IBUPROFEN 400 MG TABLET (FP) PO PRN (17:06)
[2018-06-11] MEDS: diphenhydrAMINE HCL 25 MG CAPSULE (FP) PO PRN (17:06)
[2018-06-11] MEDS: THIAMINE HCL 100 MG TABLET (FP) PO SCH (22:29)
[2018-06-11] MEDS: traZODone HCL 50 MG TABLET (FP) PO SCH (22:30)
[2018-06-12] MEDS: prednisoLONE ACETATE 1% OPHTH SUSP 5 ML BOTTLE OS SCH ×3 (05:50→22:38)
[2018-06-12] MEDS: chlordiazePOXIDE HCL 25 MG CAPSULE PO SCH ×2 (05:51→10:04)
[2018-06-12] MEDS: diphenhydrAMINE HCL 25 MG CAPSULE (FP) PO PRN ×2 (05:52→22:41)
[2018-06-12] MEDS: TOPIRAMATE 25 MG TABLET (FP) PO SCH ×2 (10:04→22:39)
[2018-06-12] MEDS: CYCLOPENTOLATE HCL 1% OPHTH SOLN 2 ML BOTTLE OS SCH ×4 (10:04→22:38)
[2018-06-12] MEDS: PRENATAL VITAMINS W/ FOLIC ACID TABLET (FP) PO SCH (10:04)
[2018-06-12] MEDS: LITHIUM CARBONATE 300 MG CAPSULE (FP) PO SCH ×2 (10:04→22:39)
[2018-06-12] MEDS: BETAMETHASONE VALERATE 0.1% CREAM 15 GM TUBE TP SCH ×2 (10:05→22:37)
--- NOTE | 2018-06-12 13:23 | PN ---
[facility] CIWA - CIWA Score Nausea/Vomitin-Mild Nausea/No Vomiting Muscle Tremors: 3 Anxiety: 2 Agitation: 2 Paroxysmal Sweats: 1-Minimal Palms Moist Orientation: 0-Oriented Tacttile Disturbances: 0-None Auditory Disturbances: 0-None Visual Disturbances: 0-None Headache: 2-Mild CIWA-Ar Total Score: 11 S Progress Note (SOAP) Subjective: tremor sweat anxiety restlessness trouble sleep at night Objective: 06/12/18 13:20 Vital Signs Temperature 98.2 F 06/12/18 09:38 Pulse Rate 71 06/12/18 09:38 Respiratory Rate 18 06/12/18 09:38 Blood Pressure 114/68 06/12/18 09:38 O2 Sat by Pulse Oximetry (%) Laboratory Last Values WBC 5.3 K/mm3 (4.0-10.0) 06/11/18 07:30 RBC 3.76 M/mm3 (3.60-5.2) 06/11/18 07:30 Hgb 11.6 GM/dL (10.7-15.3) 06/11/18 07:30 Hct 35.4 % (32.4-45.2) 06/11/18 07:30 MCV 94.3 fl (80-96) 06/11/18 07:30 MCH 31.0 pg (25.7-33.7) 06/11/18 07:30 MCHC 32.8 g/dl (32.0-36.0) 06/11/18 07:30 RDW 13.3 % (11.6-15.6) 06/11/18 07:30 Plt Count 298 K/MM3 (134-434) 06/11/18 07:30 MPV 9.3 fl (7.5-11.1) 06/11/18 07:30 Sodium 140 mmol/L (136-145) 06/11/18 07:30 Potassium 3.9 mmol/L (3.5-5.1) 06/11/18 07:30 Chloride 112 mmol/L (98-107) H 06/11/18 07:30 Carbon Dioxide 21 mmol/L (21-32) 06/11/18 07:30 Anion Gap 8 MMOL/L (8-16) 06/11/18 07:30 BUN 16 mg/dL (7-18) 06/11/18 07:30 Creatinine 0.8 mg/dL (0.55-1.3) 06/11/18 07:30 Creat Clearance w eGFR > 60 (>60) 06/11/18 07:30 Random Glucose 80 mg/dL (74-106) 06/11/18 07:30 Calcium 8.7 mg/dL (8.5-10.1) 06/11/18 07:30 Total Bilirubin 0.4 mg/dL (0.2-1) 06/11/18 07:30 AST 19 U/L (15-37) 06/11/18 07:30 ALT 26 U/L (13-61) 06/11/18 07:30 Alkaline Phosphatase 77 U/L (45-117) 06/11/18 07:30 Total Protein 7.0 g/dl (6.4-8.2) 06/11/18 07:30 Albumin 4.0 g/dl (3.4-5.0) 06/11/18 07:30 RPR Titer Nonreactive (NONREACTIVE) 06/11/18 07:30 lab noted Assessment: 06/12/18 13:20 withdrawal sx bipolar II disorder seen by Dr. Nye 05/16/18 a month lithium and trazadone and topamax were prescribed patient stated that she bought all her medication with her in her property patient insists to fetch her home medications that she does not received her medications that she suppose to take at home brought back patient home medications from property that lithium topamax and eye drops are currently ordered lithium serum level pending Plan: continue detox
[2018-06-12] MEDS ORDERED: RANITIDINE HCL 150 MG TABLET (FP) PO ONE (17:00)
[2018-06-12] MEDS: chlordiazePOXIDE 5 MG CAPSULE PO SCH ×2 (17:15→22:39)
[2018-06-12] MEDS: IBUPROFEN 400 MG TABLET (FP) PO PRN (17:16)
[2018-06-12] MEDS: traZODone HCL 50 MG TABLET (FP) PO SCH (22:39)
[2018-06-12] MEDS: RANITIDINE HCL 150 MG TABLET (FP) PO SCH (22:39)
[2018-06-12] MEDS: THIAMINE HCL 100 MG TABLET (FP) PO SCH (22:41)
[2018-06-13] MEDS: chlordiazePOXIDE 5 MG CAPSULE PO SCH ×2 (06:25→10:30)
[2018-06-13] MEDS: prednisoLONE ACETATE 1% OPHTH SUSP 5 ML BOTTLE OS SCH (06:30)
[2018-06-13 09:13] VITALS: BP 102/67; PULSE 74; TEMP 97.3
[2018-06-13] MEDS ORDERED: GABAPENTIN 100 MG CAPSULE (FP) PO ONE (10:13)
[2018-06-13] MEDS: RANITIDINE HCL 150 MG TABLET (FP) PO SCH (10:30)
[2018-06-13] MEDS: TOPIRAMATE 25 MG TABLET (FP) PO SCH (10:30)
[2018-06-13] MEDS: LITHIUM CARBONATE 300 MG CAPSULE (FP) PO SCH (10:30)
[2018-06-13] MEDS: PRENATAL VITAMINS W/ FOLIC ACID TABLET (FP) PO SCH (10:30)
[2018-06-13] MEDS: BETAMETHASONE VALERATE 0.1% CREAM 15 GM TUBE TP SCH (10:33)
[2018-06-13] MEDS: CYCLOPENTOLATE HCL 1% OPHTH SOLN 2 ML BOTTLE OS SCH (10:34)
--- NOTE | 2018-06-13 11:22 | DS ---
[facility] Detox Discharge Summary Admission Date: 06/10/18 Discharge Date: 06/13/18 - History Present History: Alcohol Dependence, Cannabis Dependence, Sedative Dependence - Physical Exam Results Vital Signs: Vital Signs Temperature 97.3 F L 06/13/18 09:13 Pulse Rate 74 06/13/18 09:13 Respiratory Rate 18 06/13/18 09:13 Blood Pressure 102/67 06/13/18 09:13 O2 Sat by Pulse Oximetry (%) - Treatment Hospital Course: Detox Protocol Followed, Detoxed Safely, Responded well, Discharged Condition Good, Rehab Referral Accepted - Medication Discharge Medications: Ambulatory Orders Gabapentin 300 mg PO BID 06/03/17 [place] Carbonate [Eskalith -] 300 mg PO BID #60 capsule 05/16/18 Olanzapine [Zyprexa] 15 mg PO BID #60 tablet 05/16/18 Topiramate [Topamax -] 50 mg PO BID #60 tablet 05/16/18 traZODone HCL [Trazodone HCl] 150 mg PO HS #30 tablet 05/16/18 Acetaminophen [Tylenol -] 500 mg PO Q6H PRN 06/10/18 Betamethasone Valerate [Valisone] 1 applic TP BID 06/10/18 Cyclopentolate 1% Eye Drops [Cyclogyl 1% Eye Drops -] 1 drop OP QID 06/10/18 Diphenhydramine [Benadryl Capsule -] 100 mg PO HS 06/10/18 Prednisolone 1% Ophthalmic [Pred Forte 1% -] 1 drop OP TID 06/10/18 - Diagnosis (1) Sedative hypnotic or anxiolytic dependence Current Visit: Yes Status: Chronic (2) Alcohol dependence with uncomplicated withdrawal Current Visit: Yes Status: Chronic (3) Cannabis dependence, uncomplicated Current Visit: Yes Status: Chronic (4) Insomnia Current Visit: No Status: Acute (5) Substance induced mood disorder Current Visit: No Status: Acute (6) Anxiety Current Visit: No Status: Chronic (7) Arthritis of left knee Current Visit: No Status: Chronic (8) COPD (chronic obstructive pulmonary disease) Current Visit: No Status: Chronic Qualifiers: COPD type: emphysema Emphysema type: unspecified Qualified Code(s): J43.9 - Emphysema, unspecified (9) Dry skin dermatitis Current Visit: No Status: Chronic (10) GERD (gastroesophageal reflux disease) Current Visit: Yes Status: Chronic Qualifiers: Esophagitis presence: without esophagitis (11) Nicotine dependence Current Visit: Yes Status: Chronic Qualifiers: Nicotine product type: cigarettes Substance use status: uncomplicated Qualified Code(s): F17.210 - Nicotine dependence, cigarettes, uncomplicated (12) Bipolar II disorder Current Visit: No Status: Suspected - AMA Did Patient Leave Against Medical Advice: No (referred to [facility] rehab)
[2018-06-13] MEDS ORDERED: GABAPENTIN 100 MG CAPSULE (FP) PO SCH (14:00)
[2018-06-13] MEDS ORDERED: chlordiazePOXIDE HCL 10 MG CAPSULE PO SCH (17:00)
== END 2018-06-13 11:00 | disposition home or self-care (01) | DRG 775 ==
LOC: YASAS 10:58 → Y3E 15:00 → Y6N 18:32
PROVIDERS: ADMIT Psychiatry & Neurology Psychiatry
PROC: HZ2ZZZZ Detoxification Services for Substance Abuse Treatment (ICD-10-PCS; principal; 2018-06-10)
DX: F10.230 Alcohol dependence with withdrawal, uncomplicated (principal); F13.230 Sedative, hypnotic or anxiolytic dependence with withdrawal, uncomplicated; F12.20 Cannabis dependence, uncomplicated; F17.210 Nicotine dependence, cigarettes, uncomplicated; F41.9 Anxiety disorder, unspecified; F19.24 Other psychoactive substance dependence with psychoactive substance-induced mood disorder; F31.81 Bipolar II disorder; G47.00 Insomnia, unspecified; M13.862 Other specified arthritis, left knee; J44.9 Chronic obstructive pulmonary disease, unspecified; L85.3 Xerosis cutis; K21.9 Gastro-esophageal reflux disease without esophagitis; Z88.0 Allergy status to penicillin
CPT/HCPCS: 36415; 80053; 80178; 85027; 86593

== ENCOUNTER 2018-08-27 09:33 | Inpatient (IN) | payer OTHER ==
[2018-08-27 11:04] VITALS: BMI 35.7
--- NOTE | 2018-08-27 12:57 | HP ---
CIWA Score Nausea/Vomitin-Mild Nausea/No Vomiting Muscle Tremors: 2 Anxiety: 4-Mod. Anxious/Guarded Agitation: 1-Slight > Activity Paroxysmal Sweats: No Perspiration Orientation: 2-Disoriented Date<2 days Tacttile Disturbances: 2-Mild Itch/Numbness/Burn Auditory Disturbances: 1-Very Mild Visual Disturbances: 2-Mild Sensitivity Headache: 2-Mild CIWA-Ar Total Score: 17 - Admission Criteria OASAS Guidelines: Admission for Medically Managed Detox: Requires at least one of the followin. CIWA greater than 12 2. Seizures within the past 24 hours 3. Delirium tremens within the past 24 hours 4. Hallucinations within the past 24 hours 5. Acute intervention needed for co occurring medical disorder 6. Acute intervention needed for co occurring psychiatric disorder 7. Severe withdrawal that cannot be handled at a lower level of care (continued vomiting, continued diarrhea, abnormal vital signs) requiring intravenous medication and/or fluids 8. Admission ROS S - HPI Allergies/Adverse Reactions: Allergies Allergy/AdvReac Type Severity Reaction Status Date / Time Penicillins Allergy Severe Swelling Verified 08/27/18 14:00 History of Present Illness: patient here requesting detox from [facility] use reports 1/5 /day x 10 years , relapse immediately after d/c from this facility , starts drinking in the morning , latest use this morning , denies seizures , + tremors , + blackouts , denies recent falls . Denies driving . benzo : xanax reports 1 x 2 mg each x 1 year , latest use " I have no idea " PCP - " a little bit regular these days " cannabis - not daily , first age of use 15 tobacco : 1/2 ppd , requesting nrt w/ gum . PMhx : denies PSHX : henrique age 14 PSych : bipolar d/o Exam Limitations: Clinical Condition, Intoxication - Ebola screening Have you traveled outside of the country in the last 21 days: No (N) Have you had contact with anyone from an Ebola affected area: No Have you been sick,other than usual withdrawal symptoms: No Do you have a fever: No - Review of Systems Constitutional: See HPI EENT: reports: Blurred Vision Respiratory: reports: No Symptoms reported Cardiac: reports: No Symptoms Reported GI: reports: See HPI : reports: No Symptoms Reported Musculoskeletal: reports: Back Pain (chronic n) Integumentary: reports: No Symptoms Reported Neuro: reports: Headache Endocrine: reports: No Symptoms Reported Psychiatric: reports: Orientated x3, Agitated, Anxious Patient History - Patient Medical History Hx Anemia: No Hx Asthma: No Hx Chronic Obstructive Pulmonary Disease (COPD): No Hx Cancer: No Hx Cardiac Disorders: No Hx Congestive Heart Failure: No Hx Hypertension: No Hx Hypercholesterolemia: No Hx Pacemaker: No HX Cerebrovascular Accident: No Hx Seizures: No Hx Dementia: No Hx Diabetes: No Hx Gastrointestinal Disorders: No Hx Liver Disease: No Hx Genitourinary Disorders: No Hx Sexually Transmitted Disorders: No Hx Renal Disease (ESRD): No Hx Thyroid Disease: No Hx Human Immunodeficiency Virus (HIV): No Hx Hepatitis C: No Hx Depression: Yes Hx Suicide Attempt: No Hx Bipolar Disorder: Yes Hx Schizophrenia: No - Patient Surgical History Past Surgical History: Yes Hx Neurologic Surgery: No Hx Cataract Extraction: No Hx Cardiac Surgery: No Hx Lung Surgery: No Hx Breast Surgery: No Hx Breast Biopsy: No Hx Abdominal Surgery: No Hx Appendectomy: No Hx Cholecystectomy: Yes (age 12) Hx Genitourinary Surgery: No Hx Section: No Hx Orthopedic Surgery: No Hx Hysterectomy: No Anesthesia Reaction: No - PPD History Date: 05/18/18 Results: 0 mm - Reproductive History Last Menstrual Period: 06/09/18 - Smoking Cessation Smoking history: Current every day smoker Have you smoked in the past 12 months: Yes Aproximately how many cigarettes per day: 10 Cigars Per Day: 0 Hx Chewing Tobacco Use: No Initiated information on smoking cessation: No - Substances Abused Alcohol Route: Oral Frequency: Daily Amount used: 5TH VODKA Age of first use: 14 Date of Last Use: 08/27/18 PCP Route: Smoking Frequency: Daily Amount used: 7 BLUNTS Age of first use: 43 Date of Last Use: 08/27/18 Family Disease History - Family Disease History Family Disease History: Heart Disease: Mother, Other: Sister (alcoholism) Admission Physical Exam [facility] - Vital Signs Vital Signs: Vital Signs - 24 hr 08/27/18 11:02 Temperature 98.7 F Pulse Rate 75 Respiratory 19 Rate Blood Pressure 135/72 - Physical General Appearance: Yes: Moderate Distress, Intoxicated, Irritable, Anxious HEENTM: Yes: EOMI, Hearing grossly Normal, Normocephalic, Normal Voice Respiratory: Yes: Chest Non-Tender, Lungs Clear, Normal Breath Sounds Neck: Yes: No masses,lesions,Nodules, Trachea in good position Cardiology: Yes: Regular Rhythm, Regular Rate, S1, S2 Abdominal: Yes: Normal Bowel Sounds, Soft Genitourinary: Yes: Within Normal Limits Back: Yes: Normal Inspection Musculoskeletal: Yes: full range of Motion, Other (staggering gait) Extremities: Yes: Normal Capillary Refill, Normal Range of Motion Neurological: Yes: Motor Strength 5/5 - Diagnostic (1) PCP (phencyclidine) abuse Current Visit: Yes Status: Acute (2) Alcohol dependence with uncomplicated withdrawal Current Visit: Yes Status: Acute (3) Cannabis dependence, uncomplicated Current Visit: Yes Status: Chronic (4) Nicotine dependence Current Visit: Yes Status: Chronic Qualifiers: Nicotine product type: cigarettes [facility] Breath Alcohol Content Breath Alcohol Content: 0 Urine Pregancy Test - Result Urine Test Results: Negative - NO Line Present Urine Drug Screen - Results Drug Screen Negative: No Urine Drug Screen Results: THC-Marijuana, BZO-Benzodiazepines Inpatient Rehab Admission - Rehab Decision to Admit Inpatient rehab admission?: No
[2018-08-27] MEDS ORDERED: ACETAMINOPHEN 325 MG TABLET (FP) PO PRN ×2 (13:35)
[2018-08-27] MEDS ORDERED: MAGNESIUM HYDROX 2400MG/30ML ORAL SUSPENSION 30 ML CUP PO PRN (13:35)
[2018-08-27] MEDS ORDERED: MENTHOL/PHENOL 1 EACH UD MM PRN (13:35)
[2018-08-27] MEDS ORDERED: DICYCLOMINE HCL 10 MG CAPSULE PO PRN (13:35)
[2018-08-27] MEDS ORDERED: NICOTINE POLACRILEX 2 MG GUM BUC PRN (13:35)
[2018-08-27] MEDS ORDERED: MAG HYDROX/AL HYDROX/SIMETH 30 ML UNIT-DOSE CUP PO PRN (13:35)
[2018-08-27] MEDS ORDERED: IBUPROFEN 400 MG TABLET (FP) PO PRN (13:35)
[2018-08-27] MEDS ORDERED: MELATONIN 5 MG TABLETS PO PRN (13:35)
[2018-08-27] MEDS ORDERED: MAGNESIUM CITRATE 300 ML BOTTLE PO PRN (13:35)
[2018-08-27] MEDS ORDERED: chlordiazePOXIDE HCL 25 MG CAPSULE PO PRN (13:35)
[2018-08-27] MEDS: chlordiazePOXIDE HCL 25 MG CAPSULE PO SCH ×2 (17:46→22:54)
[2018-08-27] MEDS ORDERED: THIAMINE HCL 100 MG TABLET (FP) PO SCH (22:00)
[2018-08-27 22:35] VITALS: TEMP 98.8
[2018-08-28] MEDS: chlordiazePOXIDE HCL 25 MG CAPSULE PO SCH ×2 (06:06→11:07)
[2018-08-28] MEDS ORDERED: PRENATAL VITAMINS W/ FOLIC ACID TABLET (FP) PO SCH (10:00)
[2018-08-28 11:06] LABS: ALBUMIN 3.3 g/dl (3.4-5.0); ALK PHOS 59 U/L (45-117); ANION GAP 5 MMOL/L (8-16); BILIRUBIN,TOTAL 0.4 mg/dL (0.2-1); BLOOD UREA NITROGEN 13 mg/dL (7-18); CALCIUM 8.4 mg/dL (8.5-10.1); CHLORIDE 111 mmol/L (98-107); CO2 26 mmol/L (21-32); CREATININE 0.7 mg/dL (0.55-1.3); GLUCOSE,RANDOM 77 mg/dL (74-106); POTASSIUM 4.1 mmol/L (3.5-5.1); SGOT/AST 17 U/L (15-37); SGPT/ALT 36 U/L (13-61); SODIUM 142 mmol/L (136-145); TOT PROT 6.1 g/dl (6.4-8.2)
--- NOTE | 2018-08-28 11:09 | PN ---
[facility] CIWA - CIWA Score Nausea/Vomitin-No Nausea/No Vomiting Muscle Tremors: 3 Anxiety: 1-Mildly Anxious Agitation: 2 Paroxysmal Sweats: 1-Minimal Palms Moist Orientation: 3-Disoriented Date>2 days Tacttile Disturbances: 0-None Auditory Disturbances: 0-None Visual Disturbances: 0-None Headache: 2-Mild CIWA-Ar Total Score: 12 B[facility] Progress Note (SOAP) Subjective: low energy anxiousness sad at time tremor sweating Objective: 08/28/18 11:08 Vital Signs Temperature 98.8 F 08/28/18 09:33 Pulse Rate 62 08/28/18 09:33 Respiratory Rate 18 08/28/18 09:33 Blood Pressure 103/59 L 08/28/18 09:33 O2 Sat by Pulse Oximetry (%) Laboratory Last Values Sodium 142 mmol/L (136-145) 08/28/18 08:00 Potassium 4.1 mmol/L (3.5-5.1) 08/28/18 08:00 Chloride 111 mmol/L (98-107) H 08/28/18 08:00 Carbon Dioxide 26 mmol/L (21-32) 08/28/18 08:00 Anion Gap 5 MMOL/L (8-16) L 08/28/18 08:00 BUN 13 mg/dL (7-18) 08/28/18 08:00 Creatinine 0.7 mg/dL (0.55-1.3) 08/28/18 08:00 Creat Clearance w eGFR > 60 (>60) 08/28/18 08:00 Random Glucose 77 mg/dL (74-106) 08/28/18 08:00 Calcium 8.4 mg/dL (8.5-10.1) L 08/28/18 08:00 Total Bilirubin 0.4 mg/dL (0.2-1) 08/28/18 08:00 AST 17 U/L (15-37) 08/28/18 08:00 ALT 36 U/L (13-61) 08/28/18 08:00 Alkaline Phosphatase 59 U/L (45-117) 08/28/18 08:00 Total Protein 6.1 g/dl (6.4-8.2) L 08/28/18 08:00 Albumin 3.3 g/dl (3.4-5.0) L 08/28/18 08:00 lab noted Assessment: 08/28/18 11:08 alcohol and benzo withdrawal sx Plan: continue detox
[2018-08-28 11:25] LABS: HEMATOCRIT 35.1 % (32.4-45.2); MCH 31.3 pg (25.7-33.7); MEAN CELL VOLUME 91.9 fl (80-96); MEAN PLT VOLUME 9.3 fl (7.5-11.1); PLATELET COUNT 288 K/MM3 (134-434); RBC 3.82 M/mm3 (3.60-5.2); RDW 12.5 % (11.6-15.6); WHITE BLOOD COUNT 6.3 K/mm3 (4.0-10.0)
[2018-08-28 13:28] VITALS: BP 105/63; PULSE 64
[2018-08-28] MEDS ORDERED: chlordiazePOXIDE HCL 25 MG CAPSULE PO SCH (17:00)
--- NOTE | 2018-08-28 17:23 | PN ---
[facility] Progress Note Note: NOTIFIED BY RN PATIENT REQUESTED TO SIGN OUT AMA. APARTMENT COORDINATOR INFORMED RN TO HAVE PATIENT WAIT TO SPEAK TO PROVIDER. PATIENT HEARD VIA TELEPHONE STATING " I DON' T WANT TO SPEAK TO ANY PROVIDER!" UPON ARRIVAL TO UNIT, PATIENT HAD SIGNED OUT AMA SHE REQUESTED TO LEAVE IMMEDIATELY DESPITE STAFF ENCOURAGEMENT TO STAY IN DETOX. Vital Signs Temperature 98.8 F 08/28/18 13:28 Pulse Rate 64 08/28/18 13:28 Respiratory Rate 18 08/28/18 13:28 Blood Pressure 105/63 08/28/18 13:28 O2 Sat by Pulse Oximetry (%) Laboratory Tests 08/28/18 08/28/18 08:00 08:00 WBC 6.3 RBC 3.82 Hgb 12.0 Hct 35.1 MCV 91.9 MCH 31.3 MCHC 34.0 RDW 12.5 Plt Count 288 MPV 9.3 Sodium 142 Potassium 4.1 Chloride 111 H Carbon Dioxide 26 Anion Gap 5 L BUN 13 Creatinine 0.7 Creat Clearance w eGFR > 60 Random Glucose 77 Calcium 8.4 L Total Bilirubin 0.4 AST 17 ALT 36 Alkaline Phosphatase 59 Total Protein 6.1 L Albumin 3.3 L
--- NOTE | 2018-08-28 17:24 | DS ---
[facility] Detox Discharge Summary Admission Date: 08/27/18 Discharge Date: 08/28/18 - History Present History: Alcohol Dependence, Sedative Dependence - Physical Exam Results Vital Signs: Vital Signs Temperature 98.8 F 08/28/18 13:28 Pulse Rate 64 08/28/18 13:28 Respiratory Rate 18 08/28/18 13:28 Blood Pressure 105/63 08/28/18 13:28 O2 Sat by Pulse Oximetry (%) - Medication Discharge Medications: Ambulatory Orders traZODone HCL [Trazodone HCl] 150 mg PO HS #30 tablet 05/16/18 - Diagnosis (1) Alcohol dependence with uncomplicated withdrawal Current Visit: Yes Status: Acute (2) Nicotine dependence Current Visit: Yes Status: Chronic Qualifiers: Nicotine product type: cigarettes (3) Sedative hypnotic or anxiolytic dependence Current Visit: Yes Status: Chronic - AMA Did Patient Leave Against Medical Advice: Yes
[2018-08-29] MEDS ORDERED: chlordiazePOXIDE HCL 10 MG CAPSULE PO SCH (17:00)
[2018-08-29] MEDS ORDERED: chlordiazePOXIDE HCL 10 MG CAPSULE PO PRN (17:00)
[2018-08-30] MEDS ORDERED: chlordiazePOXIDE HCL 10 MG CAPSULE PO SCH (17:00)
== END 2018-08-28 17:08 | disposition left against medical advice (07) | DRG 770 ==
LOC: YASAS 09:33 → Y3N 14:13
PROVIDERS: ADMIT Surgery; ATTEND Surgery
PROC: HZ2ZZZZ Detoxification Services for Substance Abuse Treatment (ICD-10-PCS; principal; 2018-08-27)
DX: F10.230 Alcohol dependence with withdrawal, uncomplicated (principal); F13.230 Sedative, hypnotic or anxiolytic dependence with withdrawal, uncomplicated; F12.20 Cannabis dependence, uncomplicated; F16.10 Hallucinogen abuse, uncomplicated; F17.210 Nicotine dependence, cigarettes, uncomplicated; Z88.0 Allergy status to penicillin
CPT/HCPCS: 36415; 80053; 85027; 86593

== ENCOUNTER 2018-09-20 15:41 | Inpatient (IN) | payer OTHER ==
--- NOTE | 2018-09-20 20:41 | HP ---
CIWA Score Nausea/Vomitin-Mild Nausea/No Vomiting Muscle Tremors: 1-None Visible, but [place] Anxiety: 4-Mod. Anxious/Guarded Agitation: 4-Moderately Restless Paroxysmal Sweats: 3 Orientation: 1-Uncertain about Date Tacttile Disturbances: 0-None Auditory Disturbances: 0-None Visual Disturbances: 2-Mild Sensitivity Headache: 2-Mild CIWA-Ar Total Score: 18 - Admission Criteria OASAS Guidelines: Admission for Medically Managed Detox: Requires at least one of the followin. CIWA greater than 12 2. Seizures within the past 24 hours 3. Delirium tremens within the past 24 hours 4. Hallucinations within the past 24 hours 5. Acute intervention needed for co occurring medical disorder 6. Acute intervention needed for co occurring psychiatric disorder 7. Severe withdrawal that cannot be handled at a lower level of care (continued vomiting, continued diarrhea, abnormal vital signs) requiring intravenous medication and/or fluids 8. Patient presents the following: CIWA greater than 12, Acute intervention needed for co-occurring med or psych disorder Admission Criteria Met: Admission criteria met Admission ROS [facility] Chief Complaint: C/O WORSENING WITHDRAWAL SX'S. SEEKING DETOX Allergies/Adverse Reactions: Allergies Allergy/AdvReac Type Severity Reaction Status Date / Time Penicillins Allergy Severe Swelling Verified 09/20/18 19:18 History of Present Illness: 43 Y.O. FEMALE WITH HX/O ALCOHOLISM HERE FOR DETOX. CLIENT WAS REFERRED BY [facility] AFTER PRESENTING THERE FOR C/O WITHDRAWAL SX'S. SHE PRESENTS TODAY WITH C/O WORSENING WITHDRAWAL SX'S. CIWA 18. CLIENT IS KNOWN TO THIS SERVICE. ADMITTED 3 WEEKS AGO BUT SIGNED OUT THE FOLLOWING DAY DUE TO REPORTS OF FAMILY EMERGENCY. CLIENT REPORTS DRINKING DAILY. REPORTS LAST DRINK 1 DAY AGO. DENIES HX/O SEIZURE, BLACK OUT,SI/HI. REPORTS AVH WHEN INTOXICATED. DENIES LEGALS. PMHX- MIGRAINES, BLURRY VISION, CHRONIC, LOW BACK PAIN PSYCH- BIPOLAR SCHIZOPHRENIA, DEPRESSION Exam Limitations: No Limitations - Ebola screening Have you traveled outside of the country in the last 21 days: No Have you had contact with anyone from an Ebola affected area: No Have you been sick,other than usual withdrawal symptoms: No Do you have a fever: No - Review of Systems Constitutional: Chills, Loss of Appetite, Malaise, Night Sweats, Changes in sleep, Unintentional Wgt. Loss EENT: reports: Blurred Vision, Ear Pain (INTERMITTENT BOTH) Respiratory: reports: No Symptoms reported Cardiac: reports: No Symptoms Reported GI: reports: Nausea, Poor Appetite, Poor Fluid Intake : reports: No Symptoms Reported Musculoskeletal: reports: Back Pain (CHRONIC) Integumentary: reports: Dryness Neuro: reports: Headache (MIGRAINES), Numbness (FINGERS), Tremors (FELT) Endocrine: reports: No Symptoms Reported Hematology: reports: No Symptoms Reported Psychiatric: reports: Orientated x3, Anxious, Depressed Other Systems: Reviewed and Negative Patient History - Patient Medical History Hx Anemia: No Hx Asthma: No Hx Chronic Obstructive Pulmonary Disease (COPD): No Hx Cancer: No Hx Cardiac Disorders: No Hx Congestive Heart Failure: No Hx Hypertension: No Hx Hypercholesterolemia: No Hx Pacemaker: No HX Cerebrovascular Accident: No Hx Seizures: No Hx Dementia: No Hx Diabetes: No Hx Gastrointestinal Disorders: Yes Hx Liver Disease: No Hx Genitourinary Disorders: No Hx Sexually Transmitted Disorders: No Hx Renal Disease (ESRD): No Hx Thyroid Disease: No Hx Human Immunodeficiency Virus (HIV): No Hx Hepatitis C: No Hx Depression: Yes Hx Suicide Attempt: No Hx Bipolar Disorder: Yes Hx Schizophrenia: Yes - Patient Surgical History Past Surgical History: Yes Hx Neurologic Surgery: No Hx Cataract Extraction: No Hx Cardiac Surgery: No Hx Lung Surgery: No Hx Breast Surgery: No Hx Breast Biopsy: No Hx Abdominal Surgery: No Hx Appendectomy: No Hx Cholecystectomy: Yes (age 12) Hx Genitourinary Surgery: No Hx Section: No Hx Orthopedic Surgery: No Hx Hysterectomy: No Anesthesia Reaction: No - PPD History Previous Implant?: Yes Documented Results: Negative w/proof Implanted On Prior [facility] Admission?: Yes Date: 05/18/18 Results: 0 mm PPD to be Administered?: No - Reproductive History Patient is a Female of Child Bearing Age (11 -55 yrs old): Yes Last Menstrual Period: 08/28/18 Patient : No (NEG HCG) - Smoking Cessation Smoking history: Current every day smoker Have you smoked in the past 12 months: Yes Aproximately how many cigarettes per day: 10 Cigars Per Day: 0 Hx Chewing Tobacco Use: No Initiated information on smoking cessation: Yes 'Breaking Loose' booklet given: 09/20/18 - Substance & Tx. History Hx Alcohol Use: Yes Hx Substance Use: Yes Substance Use Type: Alcohol, Heroin Hx Substance Use Treatment: Yes ([facility]) - Substances abused Alcohol Substance route: Oral Frequency: Daily Amount used: 1 LITER GIN Age of first use: 14 Date of last use: 09/16/18 Marijuana/Hashish Substance route: Smoking Frequency: Daily Amount used: 1 BLUNT Age of first use: 14 Date of last use: 09/16/18 Family Disease History - Family Disease History Family Disease History: Heart Disease: Mother, Other: Sister (alcoholism) Admission Physical Exam [facility] - Vital Signs Vital Signs: Vital Signs - 24 hr 09/20/18 19:13 Temperature 98 F Pulse Rate 73 Respiratory 18 Rate Blood Pressure 148/93 - Physical General Appearance: Yes: Mild Distress, Tremorous (FELT), Anxious HEENTM: Yes: EOMI, Normocephalic, Normal Voice, SHASHI, Pharynx Normal, Other ( DISCOLORED TEETH) Respiratory: Yes: Chest Non-Tender, Lungs Clear, Normal Breath Sounds, No Respiratory Distress, No Accessory Muscle Use Neck: Yes: No masses,lesions,Nodules, Supple, Trachea in good position Breast: Yes: Breast Exam Deferred Cardiology: Yes: Regular Rhythm, Regular Rate, S1, S2 Abdominal: Yes: Non Tender, Soft, Increased Bowel Sounds Genitourinary: Yes: Within Normal Limits (NO C/O) Back: Yes: Normal Inspection Musculoskeletal: Yes: full range of Motion, Gait Steady Extremities: Yes: Normal Capillary Refill, Normal Range of Motion, Non-Tender, Tremors (FELT) Neurological: Yes: Alert, Motor Strength 5/5, Depressed Affect Integumentary: Yes: Dry (FLAKY), Warm Lymphatic: Yes: Within Normal Limits - Diagnostic (1) Alcohol dependence with uncomplicated withdrawal Current Visit: Yes Status: Acute (2) Insomnia Current Visit: Yes Status: Chronic Qualifiers: Insomnia type: alcohol-induced Qualified Code(s): F10.982 - Alcohol use, unspecified with alcohol-induced sleep disorder (3) Substance induced mood disorder Current Visit: Yes Status: Chronic (4) Anxiety Current Visit: Yes Status: Chronic (5) Cannabis dependence, uncomplicated Current Visit: Yes Status: Acute (6) Dry skin dermatitis Current Visit: Yes Status: Chronic (7) Nicotine dependence Current Visit: Yes Status: Chronic Qualifiers: Nicotine product type: cigarettes (8) Bipolar II disorder Current Visit: Yes Status: Chronic Cleared for Admission [facility] - Detox or Rehab [facility] Level of Care: Medically Managed Detox Regimen/Protocol: Librium Claeared for Rehab Admission: No Breathalyzer - Breathalyzer Breathalyzer: 0 POC Urine test - Test device test lot number: [id number] Expiration date: 02/19/20 - Control test control: Yes - Result Urine Test Results: Negative - NO line present Urine Drug Screen - Test Device Lot number: [id number] Expiration date: 05/20/20 - Control Is test valid?: Yes - Results Drug screen NEGATIVE: No Urine drug screen results: THC-Marijuana Inpatient Rehab Admission - Rehab Decision to Admit Inpatient rehab admission?: No
[2018-09-20] MEDS ORDERED: MAGNESIUM CITRATE 300 ML BOTTLE PO PRN (20:46)
[2018-09-20] MEDS ORDERED: BISMUTH SUBSALICYLATE 524 MG/30 ML UD PO PRN (20:46)
[2018-09-20] MEDS ORDERED: MAGNESIUM HYDROX 2400MG/30ML ORAL SUSPENSION 30 ML CUP PO PRN (20:46)
[2018-09-20] MEDS ORDERED: hydrOXYzine PAMOATE 25 MG CAPSULE (FP) PO PRN (20:46)
[2018-09-20] MEDS ORDERED: guaiFENesin 200 MG/10 ML 10 ML UNIT-DOSE CUPS PO PRN (20:46)
[2018-09-20] MEDS ORDERED: MENTHOL/PHENOL 1 EACH UD MM PRN (20:46)
[2018-09-20] MEDS ORDERED: MELATONIN 5 MG TABLETS PO PRN (20:46)
[2018-09-20] MEDS ORDERED: DICYCLOMINE HCL 10 MG CAPSULE PO PRN (20:46)
[2018-09-20] MEDS ORDERED: P-EPHED 60MG/TRIPROLIDI 2.5MG TABLET PO PRN (20:46)
[2018-09-20] MEDS ORDERED: ONDANSETRON *ODT* 4 MG TABLET SL PRN (20:46)
[2018-09-20] MEDS ORDERED: ACETAMINOPHEN 325 MG TABLET (FP) PO PRN ×2 (20:46)
[2018-09-20] MEDS ORDERED: IBUPROFEN 400 MG TABLET (FP) PO PRN (20:46)
[2018-09-20] MEDS ORDERED: MAG HYDROX/AL HYDROX/SIMETH 30 ML UNIT-DOSE CUP PO PRN (20:46)
[2018-09-20] MEDS ORDERED: chlordiazePOXIDE HCL 25 MG CAPSULE PO PRN (20:46)
[2018-09-20] MEDS: chlordiazePOXIDE HCL 25 MG CAPSULE PO SCH (22:19)
[2018-09-20] MEDS: THIAMINE HCL 100 MG TABLET (FP) PO SCH (22:20)
[2018-09-20] MEDS: CIPROFLOXACIN 500 MG TABLET (RESTRICTED TO ID) PO SCH (23:29)
[2018-09-21] MEDS: chlordiazePOXIDE HCL 25 MG CAPSULE PO SCH ×4 (06:47→22:26)
--- NOTE | 2018-09-21 10:08 | EKG ---
Test Reason : Blood Pressure : / mmHG Vent. Rate : 054 BPM Atrial Rate : 054 BPM P-R Int : 164 ms QRS Dur : 094 ms QT Int : 406 ms P-R-T Axes : 083 029 055 degrees QTc Int : 385 ms POOR DATA QUALITY, INTERPRETATION MAY BE ADVERSELY AFFECTED SINUS BRADYCARDIA POSSIBLE LEFT ATRIAL ENLARGEMENT BORDERLINE ECG WHEN COMPARED WITH ECG OF 04-JUN-2017 08:37, VENT. RATE HAS DECREASED BY 27 BPM QT HAS SHORTENED Confirmed by JINA PALOMO, ARACELI ([id number]) on 09/21/2018 10:07:59 AM Referred By: SELAM COTO Confirmed By:ARACELI MURO MD
[2018-09-21] MEDS: NICOTINE 21 MG/24 HOURS TOPICAL PATCH TD SCH (10:17)
[2018-09-21] MEDS: PRENATAL VITAMINS W/ FOLIC ACID TABLET (FP) PO SCH (10:17)
[2018-09-21] MEDS: CIPROFLOXACIN 500 MG TABLET (RESTRICTED TO ID) PO SCH ×2 (10:18→22:26)
[2018-09-21] MEDS: NICOTINE POLACRILEX 2 MG GUM BUC PRN ×2 (10:18→17:16)
--- NOTE | 2018-09-21 10:56 | PN ---
S CIWA - CIWA Score Nausea/Vomitin-No Nausea/No Vomiting Muscle Tremors: 4-Moderate,w/Arms Extend Anxiety: 4-Mod. Anxious/Guarded Agitation: 4-Moderately Restless Paroxysmal Sweats: 3 Orientation: 0-Oriented Tacttile Disturbances: 0-None Auditory Disturbances: 0-None Visual Disturbances: 0-None Headache: 1-Very Mild CIWA-Ar Total Score: 16 [facility] Progress Note (SOAP) Subjective: sweats irritable tired interrupted sleep shakes Objective: 09/21/18 11:03 Vital Signs Temperature 98.1 F 09/21/18 09:20 Pulse Rate 59 L 09/21/18 09:20 Respiratory Rate 18 09/21/18 09:20 Blood Pressure 107/68 09/21/18 09:20 O2 Sat by Pulse Oximetry (%) labs pending aaox3 ambulating no acute distress Assessment: 09/21/18 11:04 withdrawal sx Plan: continue detox increase fluids labs pending
[2018-09-21 12:36] LABS: HEMATOCRIT 38.6 % (32.4-45.2); HEMOGLOBIN 12.7 GM/dL (10.7-15.3); MCHC 32.8 g/dl (32.0-36.0); MEAN CELL VOLUME 91.5 fl (80-96); MEAN PLT VOLUME 9.9 fl (7.5-11.1); PLATELET COUNT 259 K/MM3 (134-434); RBC 4.22 M/mm3 (3.60-5.2); RDW 13.2 % (11.6-15.6); WHITE BLOOD COUNT 5.2 K/mm3 (4.0-10.0)
[2018-09-21 12:37] LABS: ALBUMIN 3.1 g/dl (3.4-5.0); ALK PHOS 58 U/L (45-117); ANION GAP 7 MMOL/L (8-16); BILIRUBIN,TOTAL 0.5 mg/dL (0.2-1); BLOOD UREA NITROGEN 12 mg/dL (7-18); CHLORIDE 108 mmol/L (98-107); CO2 28 mmol/L (21-32); CREATININE 0.7 mg/dL (0.55-1.3); GLUCOSE,RANDOM 84 mg/dL (74-106); SGOT/AST 11 U/L (15-37); SGPT/ALT 16 U/L (13-61); SODIUM 143 mmol/L (136-145); TOT PROT 5.7 g/dl (6.4-8.2)
--- NOTE | 2018-09-21 14:38 | CONSULT ---
[facility] Psychiatric Consult - Data Date of interview: 09/21/18 Admission source: [facility] Identifying data: Ms Kessler is a 43 years old single Black female, mother of 4 children, unemployed with no source of ncome, domiciled living with family seeking detox treatment for alcohol and opioid Substance Abuse History: Reports history of alcohol and heroin use. Refer to addiction counselor's summary for further information Medical History: Significant for migrane headache, low back pain, GERD and history of cholecystectomy. Smokes 10 cigarettes daily Psychiatric History: Reports that her first psychiatric contact was in 2017 when she was admitted to [facility] in [place], diagnosed with Bipolar Disorder and treated with Rhododendron, Zyprexa and Lexapro. Reports no current OPD care and off medication. She received OPD care in [facility] in the past. Told entry writer that prior to her current admission, she was kept at [facility] overnight and given Zyprexa 10 mg. Denies previous suicidal attempt. At present, denies experiencing psychotic, manic or depressive symptoms , S/H ideations. However, reports feeling anxious and sleeping poorly Physical/Sexual Abuse/Trauma History: Denies history of emotional, physical or sexual abuse as well as DV relationship Additional Comment: Reports history of 3-4 previous misdemeanor arrests. No probation Mental Status Exam - Mental Status Exam Alert and Oriented to: Place, Person Cognitive Function: Fair Patient Appearance: Well Groomed Mood: Anxious Affect: Appropriate Patient Behavior: Cooperative Speech Pattern: Clear Thought Process: Intact, Goal Oriented Hallucinations: Denies Suicidal Ideation: Denies Homicidal Ideation: Denies Insight/Judgement: Poor Sleep: Poorly Appetite: Fair Muscle strength/Tone: Normal Gait/Station: Spastic Psychiatric Findings - Problem List ([place] 1, 2,3) (1) Bipolar disorder Current Visit: Yes Status: Chronic (2) Substance-induced anxiety disorder Current Visit: Yes Status: Acute (3) Substance-induced sleep disorder Current Visit: Yes Status: Acute (4) Alcohol dependence with uncomplicated withdrawal Current Visit: Yes Status: Acute (5) Cannabis dependence, uncomplicated Current Visit: Yes Status: Acute (6) Nicotine dependence Current Visit: Yes Status: Chronic Qualifiers: Nicotine product type: cigarettes (7) GERD (gastroesophageal reflux disease) Current Visit: No Status: Chronic Qualifiers: Esophagitis presence: without esophagitis Qualified Code(s): K21.9 - Gastro -esophageal reflux disease without esophagitis (8) Low back pain Current Visit: Yes Status: Chronic - Initial Treatment Plan Initial Treatment Plan: 1) Continue Zyprexa 10 mg po daily. 2) Start Trazadane 100 mg po HS. 3) Continue inpatient detoxification
[2018-09-21] MEDS: OLANZapine 10 MG TABLET PO SCH (15:35)
[2018-09-21] MEDS: THIAMINE HCL 100 MG TABLET (FP) PO SCH (22:26)
[2018-09-21] MEDS: traZODone HCL 100 MG TABLET (FP) PO SCH (22:27)
[2018-09-22] MEDS: chlordiazePOXIDE HCL 25 MG CAPSULE PO SCH ×3 (06:37→17:45)
--- NOTE | 2018-09-22 10:23 | PN ---
[facility] CIWA - CIWA Score Nausea/Vomitin-No Nausea/No Vomiting Muscle Tremors: 3 Anxiety: 3 Agitation: 3 Paroxysmal Sweats: 3 Orientation: 0-Oriented Tacttile Disturbances: 0-None Auditory Disturbances: 0-None Visual Disturbances: 0-None Headache: 0-None Present CIWA-Ar Total Score: 12 S Progress Note (SOAP) Subjective: sweats rash on face agitation interrupted sleep Objective: 09/22/18 10:29 Vital Signs Temperature 97.5 F L 09/22/18 07:56 Pulse Rate 54 L 09/22/18 07:56 Respiratory Rate 18 09/22/18 07:56 Blood Pressure 126/74 09/22/18 07:56 O2 Sat by Pulse Oximetry (%) Laboratory Tests 09/21/18 09/21/18 09/21/18 07:00 07:00 07:00 WBC 5.2 RBC 4.22 Hgb 12.7 Hct 38.6 MCV 91.5 MCH 30.0 MCHC 32.8 RDW 13.2 Plt Count 259 MPV 9.9 Sodium 143 Potassium 4.0 Chloride 108 H Carbon Dioxide 28 Anion Gap 7 L BUN 12 Creatinine 0.7 Creat Clearance w eGFR 90.90 Random Glucose 84 Calcium 8.0 L Total Bilirubin 0.5 AST 11 L ALT 16 Alkaline Phosphatase 58 Total Protein 5.7 L Albumin 3.1 L RPR Titer Nonreactive aaox3 ambulating no acute distress Assessment: 09/22/18 10:35 withdrawal sx Plan: continue detox increase fluids betamethasone cream for face
[2018-09-22] MEDS: BETAMETHASONE DIPR 0.05% OINT 45 GM TUBE TP SCH ×2 (11:27→22:53)
[2018-09-22] MEDS: OLANZapine 10 MG TABLET PO SCH (11:27)
[2018-09-22] MEDS: CIPROFLOXACIN 500 MG TABLET (RESTRICTED TO ID) PO SCH ×2 (11:27→22:31)
[2018-09-22] MEDS: NICOTINE 21 MG/24 HOURS TOPICAL PATCH TD SCH (11:27)
[2018-09-22] MEDS: PRENATAL VITAMINS W/ FOLIC ACID TABLET (FP) PO SCH (11:27)
[2018-09-22] MEDS: NICOTINE POLACRILEX 2 MG GUM BUC PRN (12:26)
[2018-09-22 17:42] LABS: URINE APPEARANCE CLOUDY; URINE COLOR YELLOW
[2018-09-22 17:43] LABS: URINE BILIRUBIN NEGATIVE (NEGATIVE); URINE GLUCOSE (UA) NEGATIVE (NEGATIVE); URINE KETONE NEGATIVE (NEGATIVE); URINE PROTEIN NEGATIVE (NEGATIVE)
[2018-09-22 17:44] LABS: URINE NITRITE NEGATIVE (NEGATIVE)
[2018-09-22 17:45] LABS: URINE LEUK ESTERASE 4+ (NEGATIVE)
[2018-09-22] MEDS: METHOCARBAMOL 500 MG TABLET PO PRN (17:45)
[2018-09-22] MEDS: chlordiazePOXIDE HCL 10 MG CAPSULE PO SCH (22:30)
[2018-09-22] MEDS: THIAMINE HCL 100 MG TABLET (FP) PO SCH (22:31)
[2018-09-22] MEDS: traZODone HCL 100 MG TABLET (FP) PO SCH (22:31)
[2018-09-22] MEDS ORDERED: chlordiazePOXIDE HCL 10 MG CAPSULE PO PRN (23:00)
[2018-09-23] MEDS: chlordiazePOXIDE HCL 10 MG CAPSULE PO SCH ×3 (06:33→17:21)
[2018-09-23] MEDS: METHOCARBAMOL 500 MG TABLET PO PRN ×2 (06:35→17:23)
[2018-09-23] MEDS: NICOTINE 21 MG/24 HOURS TOPICAL PATCH TD SCH (10:24)
[2018-09-23] MEDS: PRENATAL VITAMINS W/ FOLIC ACID TABLET (FP) PO SCH (10:24)
[2018-09-23] MEDS: BETAMETHASONE DIPR 0.05% OINT 45 GM TUBE TP SCH (10:24)
[2018-09-23] MEDS: OLANZapine 10 MG TABLET PO SCH (10:24)
[2018-09-23] MEDS ORDERED: LORATADINE 10 MG TABLET PO SCH (11:15)
[2018-09-23] MEDS: BETAMETHASONE DIPR 0.05% CREAM 15 GM TUBE TP SCH ×2 (13:25→22:27)
--- NOTE | 2018-09-23 13:59 | PN ---
[facility] Progress Note (SOAP) Subjective: my allergies acting out little sweats feeling better Objective: 09/23/18 13:59 Vital Signs Temperature 98.2 F 09/23/18 13:41 Pulse Rate 68 09/23/18 13:41 Respiratory Rate 18 09/23/18 13:41 Blood Pressure 126/67 09/23/18 13:41 O2 Sat by Pulse Oximetry (%) aaox3 ambulating no acute distress Assessment: 09/23/18 13:59 mild withdrawal sx Plan: continue detox claritin prn d/c in am
[2018-09-23] MEDS: traZODone HCL 100 MG TABLET (FP) PO SCH (22:26)
[2018-09-23] MEDS: THIAMINE HCL 100 MG TABLET (FP) PO SCH (22:26)
[2018-09-23] MEDS ORDERED: chlordiazePOXIDE HCL 10 MG CAPSULE PO SCH (23:00)
[2018-09-24 06:38] VITALS: BP 112/58; PULSE 53; TEMP 97.3
--- NOTE | 2018-09-24 16:01 | DS ---
[facility] Detox Discharge Summary Admission Date: 09/20/18 Discharge Date: 09/24/18 - History Additional Comments: Pt was discharged and had left the unit prior to this provider arriving the unit. Per Counselor, pt doing aftercare rehab as inpatient at [facility]. Per [employer] and RNs, pt was not in any acute distress prior to leaving unit - Physical Exam Results Vital Signs: Vital Signs Temperature 97.3 F L 09/24/18 06:00 Pulse Rate 53 L 09/24/18 06:00 Respiratory Rate 20 09/24/18 06:00 Blood Pressure 112/58 L 09/24/18 06:00 O2 Sat by Pulse Oximetry (%) - Treatment Hospital Course: Detox Protocol Followed, Detoxed Safely, Responded well, Discharged Condition Good, Rehab Referral Accepted Patient has Accepted a Rehab Referral to: [facility] - Medication Discharge Medications: Ambulatory Orders traZODone HCL [Trazodone HCl] 150 mg PO HS #30 tablet 05/16/18 Ciprofloxacin [Cipro (Restricted To Id)] 500 mg PO Q12H 09/20/18 Olanzapine 10 mg PO DAILY 09/20/18
== END 2018-09-24 09:03 | disposition home or self-care (01) | DRG 775 ==
LOC: YASAS 15:41 → Y3E 21:29 → Y6N 21:33
PROVIDERS: ADMIT Surgery; ATTEND Surgery
PROC: HZ2ZZZZ Detoxification Services for Substance Abuse Treatment (ICD-10-PCS; principal; 2018-09-20)
DX: F10.230 Alcohol dependence with withdrawal, uncomplicated (principal); F12.20 Cannabis dependence, uncomplicated; F17.210 Nicotine dependence, cigarettes, uncomplicated; F19.280 Other psychoactive substance dependence with psychoactive substance-induced anxiety disorder; F19.282 Other psychoactive substance dependence with psychoactive substance-induced sleep disorder; F19.24 Other psychoactive substance dependence with psychoactive substance-induced mood disorder; F31.9 Bipolar disorder, unspecified; F31.81 Bipolar II disorder; F20.9 Schizophrenia, unspecified; G43.909 Migraine, unspecified, not intractable, without status migrainosus; K21.9 Gastro-esophageal reflux disease without esophagitis; M54.5 Low back pain; G89.29 Other chronic pain; L85.3 Xerosis cutis
CPT/HCPCS: 36415; 80053; 81003; 85027; 86593; 93005; 93010

== ENCOUNTER 2019-08-19 08:33 | Inpatient (IN) | payer OTHER ==
[2019-08-19 09:05] VITALS: BMI 28.3
--- NOTE | 2019-08-19 09:39 | HP ---
CIWA Score Nausea/Vomitin Muscle Tremors: 3 Anxiety: 3 Agitation: 3 Paroxysmal Sweats: 1-Minimal Palms Moist Orientation: 0-Oriented Tacttile Disturbances: 1-Very Mild Itch/Numbness Auditory Disturbances: 0-None Visual Disturbances: 0-None Headache: 1-Very Mild CIWA-Ar Total Score: 14 - Admission Criteria OASAS Guidelines: Admission for Medically Managed Detox: Requires at least one of the followin. CIWA greater than 12 2. Seizures within the past 24 hours 3. Delirium tremens within the past 24 hours 4. Hallucinations within the past 24 hours 5. Acute intervention needed for co occurring medical disorder 6. Acute intervention needed for co occurring psychiatric disorder 7. Severe withdrawal that cannot be handled at a lower level of care (continued vomiting, continued diarrhea, abnormal vital signs) requiring intravenous medication and/or fluids 8. Admitting History and Physical - Admission Chief Complaint: i am trying to get my life together History of Present Illness: This 44 years old female with alcohol dependence,marijuana,pills, seen in [place] last night,clear to come in for detox this morning denied seizure last detox [facility] 09/20/18 to 09/24/18 multiple admissions in detox longest sobriety 2 years schizophrenia,bipolar disorder plan for rehab after detox History Source: Patient Limitations to Obtaining History: No Limitations - Past Medical History ...LMP: 08/01/19 ...: No Psych: Yes: Bipolar, Schizophrenia - Smoking History Smoking history: Current every day smoker Have you smoked in the past 12 months: Yes Aproximately how many cigarettes per day: 10 - Alcohol/Substance Use Hx Alcohol Use: Yes History of Substance Use: reports: Marijuana - Social History Usual Living Arrangement: Yes: With Child ADL: Support Services Occupation: unemployed History of Recent Travel: No Admission ROS [facility] Chief Complaint: i am here to get my life better Allergies/Adverse Reactions: Allergies Allergy/AdvReac Type Severity Reaction Status Date / Time Penicillins Allergy Severe Swelling Verified 08/19/19 08:54 egg Allergy Verified 08/19/19 08:57 History of Present Illness: this 44 years old female with alcohol dependence,marijuana dependence,seeking detox,seen in [place] last night,receiving medication,clear to come for detox, withdrawal symptom last detox [facility] 09/20/18 to 09/24/18 nicotine dependence denied seizure denied syncope schizophrenia,bipolar disorder longest sobriety 2 years plan for rehab after detox Exam Limitations: No Limitations - Ebola screening Have you traveled outside of the country in the last 21 days: No Have you had contact with anyone from an Ebola affected area: No Have you been sick,other than usual withdrawal symptoms: No Do you have a fever: No - Review of Systems Constitutional: Loss of Appetite, Malaise, Night Sweats, Changes in sleep, Weakness, Unexplained wgt Loss EENT: reports: Nose Congestion Respiratory: reports: No Symptoms reported Cardiac: reports: No Symptoms Reported GI: reports: Nausea, Poor Appetite, Vomiting, Abdominal cramping : reports: No Symptoms Reported Musculoskeletal: reports: Back Pain, Muscle Pain Integumentary: reports: Dryness Neuro: reports: Tremors Endocrine: reports: No Symptoms Reported Hematology: reports: No Symptoms Reported Psychiatric: reports: No Sypmtoms Reported, Judgement Intact, Mood/Affect Appropiate, Orientated x3, other (schizophrenia,bipolar disorder) Other Systems: Reviewed and Negative Patient History - Patient Medical History Hx Anemia: No Hx Asthma: No Hx Chronic Obstructive Pulmonary Disease (COPD): No Hx Cancer: No Hx Cardiac Disorders: No Hx Congestive Heart Failure: No Hx Hypertension: No Hx Hypercholesterolemia: No Hx Pacemaker: No HX Cerebrovascular Accident: No Hx Seizures: No Hx Dementia: No Hx Diabetes: No Hx Gastrointestinal Disorders: Yes Hx Liver Disease: No Hx Genitourinary Disorders: No Hx Sexually Transmitted Disorders: No Hx Renal Disease (ESRD): No Hx Thyroid Disease: No Hx Human Immunodeficiency Virus (HIV): No Hx Hepatitis C: No Hx Depression: Yes Hx Suicide Attempt: No Hx Bipolar Disorder: Yes Hx Schizophrenia: Yes Other Medical History: no suicidal,no homicidal - Patient Surgical History Past Surgical History: Yes Hx Neurologic Surgery: No Hx Cataract Extraction: No Hx Cardiac Surgery: No Hx Lung Surgery: No Hx Breast Surgery: No Hx Breast Biopsy: No Hx Abdominal Surgery: No Hx Appendectomy: No Hx Cholecystectomy: Yes (age 12) Hx Genitourinary Surgery: No Hx Section: No Hx Orthopedic Surgery: No Hx Hysterectomy: No Anesthesia Reaction: No - PPD History Previous Implant?: Yes Documented Results: Negative w/o proof Implanted On Prior R Admission?: Yes Date: 05/18/18 Results: 0 mm PPD to be Administered?: Yes - Reproductive History Last Menstrual Period: 08/01/19 Patient : No - Smoking Cessation Smoking history: Current every day smoker Have you smoked in the past 12 months: Yes Aproximately how many cigarettes per day: 10 Cigars Per Day: 0 Hx Chewing Tobacco Use: No Initiated information on smoking cessation: Yes 'Breaking Loose' booklet given: 08/19/19 - Substance & Tx. History Hx Alcohol Use: Yes Hx Substance Use: No Substance Use Type: Alcohol, Marijuana Hx Substance Use Treatment: Yes ([facility] 09/20/18 to 09/24/18) - Substances abused Alcohol Substance route: Oral Frequency: Daily Amount used: 1 PINT -1 LITER OF VODKA Age of first use: 14 Date of last use: 08/18/19 Marijuana/Hashish Substance route: Smoking Frequency: Daily Amount used: 2-3 BLUNTS Age of first use: 14 Date of last use: 08/18/19 Admission Physical Exam S - Vital Signs Vital Signs: Vital Signs - 24 hr 08/19/19 09:02 Temperature 97.0 F L Pulse Rate 105 H Respiratory 18 Rate Blood Pressure 153/99 - Physical General Appearance: Yes: Moderate Distress, Tremorous, Irritable, Anxious HEENTM: Yes: Normal ENT Inspection, SHASHI, Pharynx Normal Respiratory: Yes: Lungs Clear, Normal Breath Sounds, No Respiratory Distress Neck: Yes: Within Normal Limits, Supple, Trachea in good position Breast: Yes: Breast Exam Deferred Cardiology: Yes: Tachycardia Abdominal: Yes: Normal Bowel Sounds, Non Tender, Soft Genitourinary: Yes: Within Normal Limits Back: Yes: Muscle Spasm Musculoskeletal: Yes: Back pain, Muscle Pain Extremities: Yes: Tremors Neurological: Yes: chemical process engineer II-XII NML intact, Fully Oriented, Alert, Motor Strength 5/5 Integumentary: Yes: Dry Lymphatic: Yes: Within Normal Limits - Diagnostic (1) Alcohol dependence with uncomplicated withdrawal Current Visit: No Status: Acute (2) Cannabis dependence, uncomplicated Current Visit: No Status: Acute (3) Bipolar disorder Current Visit: No Status: Chronic (4) Dry skin dermatitis Current Visit: No Status: Chronic (5) Low back pain Current Visit: No Status: Chronic (6) Nicotine dependence Current Visit: No Status: Chronic Qualifiers: Nicotine product type: cigarettes (7) Dry eye Current Visit: Yes Status: Acute (8) Schizophrenia Current Visit: Yes Status: Acute (9) Bipolar disorder Current Visit: Yes Status: Acute Cleared for Admission S - Detox or Rehab [facility] Level of Care: Medically Managed Detox Regimen/Protocol: Librium Breathalyzer - Breathalyzer Breathalyzer: 0 POC Urine test - Test device test lot number: [id number] Expiration date: 02/19/20 - Control test control: Yes Urine Drug Screen - Test Device Lot number: [id number] Expiration date: 05/20/20 - Control Is test valid?: Yes - Results Drug screen NEGATIVE: No Urine drug screen results: THC-Marijuana Inpatient Rehab Admission - Rehab Decision to Admit Inpatient rehab admission?: No
[2019-08-19] MEDS ORDERED: MENTHOL/PHENOL 1 EACH UD MM PRN (10:03)
[2019-08-19] MEDS ORDERED: MAG HYDROX/AL HYDROX/SIMETH 30 ML UNIT-DOSE CUP PO PRN (10:03)
[2019-08-19] MEDS ORDERED: IBUPROFEN 400 MG TABLET (FP) PO PRN (10:03)
[2019-08-19] MEDS ORDERED: ACETAMINOPHEN 325 MG TABLET (FP) PO PRN ×2 (10:03)
[2019-08-19] MEDS ORDERED: MAGNESIUM CITRATE 300 ML BOTTLE PO PRN (10:03)
[2019-08-19] MEDS ORDERED: MELATONIN 5 MG TABLETS PO PRN (10:03)
[2019-08-19] MEDS ORDERED: hydrOXYzine PAMOATE 25 MG CAPSULE (FP) PO PRN (10:03)
[2019-08-19] MEDS ORDERED: chlordiazePOXIDE HCL 25 MG CAPSULE PO PRN (10:03)
[2019-08-19] MEDS ORDERED: BISMUTH SUBSALICYLATE 524 MG/30 ML UD PO PRN (10:03)
[2019-08-19] MEDS ORDERED: METHOCARBAMOL 500 MG TABLET PO PRN (10:03)
[2019-08-19] MEDS ORDERED: MAGNESIUM HYDROX 2400MG/30ML ORAL SUSPENSION 30 ML CUP PO PRN (10:03)
[2019-08-19] MEDS: chlordiazePOXIDE HCL 25 MG CAPSULE PO SCH ×3 (10:53→22:46)
[2019-08-19 12:59] LABS: HEMATOCRIT 37.7 % (32.4-45.2); HEMOGLOBIN 12.6 GM/dL (10.7-15.3); MCH 31.6 pg (25.7-33.7); MCHC 33.5 g/dl (32.0-36.0); MEAN CELL VOLUME 94.3 fl (80-96); MEAN PLT VOLUME 10.3 fl (7.5-11.1); PLATELET COUNT 229 K/MM3 (134-434); RBC 3.99 M/mm3 (3.60-5.2); RDW 14.3 % (11.6-15.6); WHITE BLOOD COUNT 5.2 K/mm3 (4.0-10.0)
[2019-08-19 13:10] LABS: ALBUMIN 3.7 g/dl (3.4-5.0); BILIRUBIN,TOTAL 0.5 mg/dL (0.2-1); BLOOD UREA NITROGEN 13.6 mg/dL (7-18); CREATININE 0.6 mg/dL (0.55-1.3); POTASSIUM 4.2 mmol/L (3.5-5.1); TOT PROT 6.6 g/dl (6.4-8.2)
[2019-08-19] MEDS: ARTIFICIAL TEARS (POLYVINYL ALCOHOL) OPTH DROPS OU SCH ×3 (14:26→22:45)
[2019-08-19] MEDS: BETAMETHASONE VALERATE 0.1% CREAM 15 GM TUBE TP SCH ×2 (14:26→22:46)
[2019-08-19] MEDS: THIAMINE HCL 100 MG TABLET (FP) PO SCH (22:46)
[2019-08-20] MEDS: chlordiazePOXIDE HCL 25 MG CAPSULE PO SCH ×4 (06:04→22:38)
[2019-08-20] MEDS ORDERED: LIDOCAINE 5% TOPICAL PATCH TP SCH (10:15)
--- NOTE | 2019-08-20 10:43 | CONSULT ---
[facility] Psychiatric Consult - Data Date of interview: 08/20/19 Admission source: [facility] Identifying data: Patient is a 44 year old single female, mother of four, unemployed, homeless, and is not currently receiving financial assistance. This is one of multiple admissios for patient. Patient admitted to for alcohol and marijuana dependence. Substance Abuse History: Smoking Cessation. Smoking history: Current every day smoker. Have you smoked in the past 12 months: Yes. Aproximately how many cigarettes per day: 10. Cigars Per Day: 0. Hx Chewing Tobacco Use: No. Initiated information on smoking cessation: Yes. 'Breaking Loose' booklet given : 08/19/19. - Substance & Tx. History. Hx Alcohol Use: Yes. Hx Substance Use : No. Substance Use Type: Alcohol, Marijuana. Hx Substance Use Treatment: Yes ([facility] 09/20/18 to 09/24/18). - Substances abused. Alcohol. Substance route : Oral. Frequency: Daily. Amount used: 1 PINT -1 LITER OF VODKA. Age of first use: 14. Date of last use: 08/18/19. Marijuana/Hashish. Substance route: Smoking. Frequency: Daily. Amount used: 2-3 BLUNTS. Age of first use: 14. Date of last use: 08/18/19 Medical History: Significant for migrane headache, low back pain, GERD and history of cholecystectomy. Psychiatric History: Patient reports history of one psychiatric hospitalization at [facility] in 2017 after hearing voices and having urges to hurt herself. She reports a diagnosis of bipolar, schizophrenia. Past treatment with zyprexa 10mg HS. Ms. Kessler reports two CPEP admissions at [facility] yesterday and in June of 2018. States her CPEP admissions were due to her feeling irritable and aggressive. She reports past history of taking gabapentin, zyprexa and trazodone. Patient is totally lost in follow up psychiatric care. At present patient reports feeling slightly irritable and is experiencing difficulty sleeping. She denies auditory/visual hallucinations, suicidal/ homicidal ideation. Physical/Sexual Abuse/Trauma History: denies. Mental Status Exam - Mental Status Exam Alert and Oriented to: Time, Place, Person Cognitive Function: Good Patient Appearance: Unkempt Mood: Withdrawn Affect: Mood Congruent Patient Behavior: Cooperative Speech Pattern: Appropriate Voice Loudness: Mildly Soft/Quiet Thought Process: Goal Oriented Thought Disorder: Not Present Hallucinations: Denies Suicidal Ideation: Denies Homicidal Ideation: Denies Insight/Judgement: Poor Sleep: Poorly Appetite: Fair Muscle strength/Tone: Normal Gait/Station: Normal Psychiatric Findings - Problem List ([place] 1, 2,3) (1) Alcohol dependence with uncomplicated withdrawal Current Visit: Yes Status: Acute (2) Cannabis dependence, uncomplicated Current Visit: Yes Status: Acute (3) Substance-induced sleep disorder Current Visit: Yes Status: Acute (4) Nicotine dependence Current Visit: Yes Status: Chronic Qualifiers: Nicotine product type: cigarettes (5) Substance induced mood disorder Current Visit: Yes Status: Chronic (6) Schizoaffective disorder Current Visit: No Status: Suspected (7) Bipolar disorder Current Visit: Yes Status: Chronic - Initial Treatment Plan Initial Treatment Plan: Psychoeducation provided. Detoxification in progress. Will order Zyprexa 10mg HS + Trazodone 100mg HS + Melatonin 10mg HS PRN + Vistaril 50mg q4h for anxiety. Benefits and side effects discussed. Verbal consent given.
[2019-08-20] MEDS: PRENATAL VITAMINS W/ FOLIC ACID TABLET (FP) PO SCH (12:30)
[2019-08-20] MEDS: BETAMETHASONE VALERATE 0.1% CREAM 15 GM TUBE TP SCH ×2 (12:31→22:38)
[2019-08-20] MEDS: ARTIFICIAL TEARS (POLYVINYL ALCOHOL) OPTH DROPS OU SCH ×4 (12:33→22:38)
[2019-08-20] MEDS: NICOTINE POLACRILEX 2 MG GUM BUC PRN ×2 (15:30→22:42)
--- NOTE | 2019-08-20 17:10 | PN ---
[facility] CIWA - CIWA Score Nausea/Vomitin-Mild Nausea/No Vomiting Muscle Tremors: 2 Anxiety: 3 Agitation: 2 Paroxysmal Sweats: 2 Orientation: 0-Oriented Tacttile Disturbances: 1-Very Mild Itch/Numbness Auditory Disturbances: 0-None Visual Disturbances: 0-None Headache: 0-None Present CIWA-Ar Total Score: 11 [facility] Progress Note (SOAP) Subjective: Abdominal cramps, LBP, shoulder pain, requesting lidocaine patch Objective: 08/20/19 17:06 Last Vital Signs Temp Pulse Resp BP Pulse Ox 98.8 F 59 L 16 131/83 08/20/19 12:34 08/20/19 12:34 08/20/19 12:34 08/20/19 12:34 Elevated b/p noted, has htn, on med Laboratory Tests 08/19/19 08/19/19 08/19/19 10:20 10:20 10:20 WBC 5.2 RBC 3.99 Hgb 12.6 Hct 37.7 MCV 94.3 MCH 31.6 MCHC 33.5 RDW 14.3 Plt Count 229 MPV 10.3 Sodium 140 Potassium 4.2 Chloride 106 Carbon Dioxide 32 Anion Gap 2 L BUN 13.6 Creatinine 0.6 Est GFR (CKD-EPI)AfAm 127.58 Est GFR (CKD-EPI)NonAf 110.08 Random Glucose 67 L Calcium 9.0 Total Bilirubin 0.5 AST 12 L ALT 15 Alkaline Phosphatase 56 Total Protein 6.6 Albumin 3.7 RPR Titer HIV 1&2 Antibody Screen Negative HIV P24 Antigen Negative 08/19/19 10:20 WBC RBC Hgb Hct MCV MCH MCHC RDW Plt Count MPV Sodium Potassium Chloride Carbon Dioxide Anion Gap BUN Creatinine Est GFR (CKD-EPI)AfAm Est GFR (CKD-EPI)NonAf Random Glucose Calcium Total Bilirubin AST ALT Alkaline Phosphatase Total Protein Albumin RPR Titer Nonreactive HIV 1&2 Antibody Screen HIV P24 Antigen Labs reviewed Assessment: 08/20/19 17:06 Withdrawal sxs Noted with elevated b/p Plan: Continue detox Encouraged PO water intake Elevated b/p: denies htn, most likely r/t withdrawal, monitor b/p
[2019-08-20] MEDS: hydrOXYzine PAMOATE 25 MG CAPSULE (FP) PO PRN (18:42)
[2019-08-20] MEDS ORDERED: LIDOCAINE PATCH REMOVAL MC SCH (22:00)
[2019-08-20] MEDS ORDERED: OLANZapine 10 MG TABLET PO SCH (22:00)
[2019-08-20] MEDS ORDERED: traZODone HCL 100 MG TABLET (FP) PO SCH (22:00)
[2019-08-20] MEDS ORDERED: MELATONIN 5 MG TABLETS PO PRN (22:00)
[2019-08-20] MEDS: THIAMINE HCL 100 MG TABLET (FP) PO SCH (22:39)
[2019-08-21] MEDS: NICOTINE POLACRILEX 2 MG GUM BUC PRN ×3 (01:54→10:25)
[2019-08-21] MEDS ORDERED: chlordiazePOXIDE HCL 25 MG CAPSULE PO SCH (05:00)
[2019-08-21] MEDS: hydrOXYzine PAMOATE 25 MG CAPSULE (FP) PO PRN (06:34)
[2019-08-21 09:03] VITALS: BP 111/66; PULSE 68; TEMP 97.7
--- NOTE | 2019-08-21 09:35 | PN ---
[facility] Progress Note Note: Patient is discharged today. Scripts for 30 days supply of medications(Zyprexa 10 mg/hs, Trazadone 100 mg/hs) are electronically transmitted to [facility] at [address] [place], [place] [id number]
--- NOTE | 2019-08-21 10:05 | PN ---
S Progress Note Note: pt states she cannot complete her detox because she has personal issues to attend to and wants to leave. Pt shows shakes/anxiety/body aches at this time and she is at risk for relapse, seizures, DTs, and or loss and is encouraged to stay to prevent these risks. Pt signed out AMA.
--- NOTE | 2019-08-21 10:06 | DS ---
[facility] Detox Discharge Summary Admission Date: 08/19/19 - History Present History: Alcohol Dependence, Cannabis Dependence, Pcp Dependence - Physical Exam Results Vital Signs: Vital Signs Temperature 97.7 F 08/21/19 06:20 Pulse Rate 68 08/21/19 06:20 Respiratory Rate 18 08/21/19 06:20 Blood Pressure 111/66 08/21/19 06:20 O2 Sat by Pulse Oximetry (%) - Treatment Hospital Course: Discharged Condition Good, Rehab Referral Accepted Patient has Accepted a Rehab Referral to: referral provided - Medication Discharge Medications: Ambulatory Orders Olanzapine 10 mg PO HS 09/20/18 Gabapentin 300 mg PO TID 08/19/19 traZODone HCL [Trazodone HCl] 100 mg PO HS 08/19/19 Olanzapine [ZyPREXA -] 10 mg PO HS #30 tablet 08/21/19 traZODone HCL [Desyrel -] 100 mg PO HS #30 tablet 08/21/19 - Diagnosis (1) Alcohol dependence with uncomplicated withdrawal Current Visit: Yes Status: Chronic (2) Cannabis dependence, uncomplicated Current Visit: Yes Status: Chronic (3) Dry eye Current Visit: Yes Status: Acute (4) Schizophrenia Current Visit: Yes Status: Acute (5) Substance-induced sleep disorder Current Visit: Yes Status: Acute (6) Bipolar disorder Current Visit: Yes Status: Chronic (7) Nicotine dependence Current Visit: Yes Status: Chronic Qualifiers: Nicotine product type: cigarettes Substance use status: uncomplicated Qualified Code(s): F17.210 - Nicotine dependence, cigarettes, uncomplicated (8) Substance induced mood disorder Current Visit: Yes Status: Chronic (9) PCP (phencyclidine) abuse Current Visit: No Status: Acute (10) Substance-induced anxiety disorder Current Visit: No Status: Acute (11) Anxiety Current Visit: No Status: Chronic (12) Arthritis of left knee Current Visit: No Status: Chronic (13) Bipolar II disorder Current Visit: No Status: Chronic (14) Bipolar disorder Current Visit: No Status: Chronic (15) COPD (chronic obstructive pulmonary disease) Current Visit: No Status: Chronic Qualifiers: COPD type: emphysema Emphysema type: unspecified Qualified Code(s): J43.9 - Emphysema, unspecified (16) Dry skin dermatitis Current Visit: No Status: Chronic (17) GERD (gastroesophageal reflux disease) Current Visit: No Status: Chronic Qualifiers: Esophagitis presence: without esophagitis Qualified Code(s): K21.9 - Gastro -esophageal reflux disease without esophagitis (18) Insomnia Current Visit: No Status: Chronic Qualifiers: Insomnia type: alcohol-induced Qualified Code(s): F10.982 - Alcohol use, unspecified with alcohol-induced sleep disorder (19) Low back pain Current Visit: No Status: Chronic (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
[2019-08-21] MEDS: PRENATAL VITAMINS W/ FOLIC ACID TABLET (FP) PO SCH (10:24)
[2019-08-22] MEDS ORDERED: chlordiazePOXIDE HCL 10 MG CAPSULE PO PRN
[2019-08-22] MEDS ORDERED: chlordiazePOXIDE HCL 10 MG CAPSULE PO SCH (05:00)
[2019-08-23] MEDS ORDERED: chlordiazePOXIDE HCL 10 MG CAPSULE PO SCH (05:00)
[2019-08-24] MEDS ORDERED: chlordiazePOXIDE HCL 10 MG CAPSULE PO ONE (05:00)
== END 2019-08-21 11:00 | disposition left against medical advice (07) | DRG 770 ==
LOC: YASAS 08:33 → Y6N 09:49
PROVIDERS: ADMIT Allergy & Immunology; ATTEND Allergy & Immunology
PROC: HZ2ZZZZ Detoxification Services for Substance Abuse Treatment (ICD-10-PCS; principal; 2019-08-19)
DX: F10.230 Alcohol dependence with withdrawal, uncomplicated (principal); F13.230 Sedative, hypnotic or anxiolytic dependence with withdrawal, uncomplicated; F16.20 Hallucinogen dependence, uncomplicated; F12.20 Cannabis dependence, uncomplicated; F17.210 Nicotine dependence, cigarettes, uncomplicated; F25.9 Schizoaffective disorder, unspecified; F31.81 Bipolar II disorder; F19.24 Other psychoactive substance dependence with psychoactive substance-induced mood disorder; F19.280 Other psychoactive substance dependence with psychoactive substance-induced anxiety disorder; F19.282 Other psychoactive substance dependence with psychoactive substance-induced sleep disorder; H04.129 Dry eye syndrome of unspecified lacrimal gland; I10 Essential (primary) hypertension; J43.9 Emphysema, unspecified; K21.9 Gastro-esophageal reflux disease without esophagitis; L85.3 Xerosis cutis; M54.5 Low back pain; M17.12 Unilateral primary osteoarthritis, left knee; Z90.49 Acquired absence of other specified parts of digestive tract; Z88.0 Allergy status to penicillin; Z91.012 Allergy to eggs
CPT/HCPCS: 36415; 80053; 85027; 86593; 87389

== ENCOUNTER 2020-05-11 08:08 | Inpatient (IN) | payer OTHER ==
[2020-05-11] MEDS ORDERED: NICOTINE POLACRILEX 2 MG GUM BUC PRN (08:59)
[2020-05-11] MEDS ORDERED: chlordiazePOXIDE HCL 25 MG CAPSULE PO PRN (08:59)
[2020-05-11] MEDS ORDERED: ONDANSETRON *ODT* 4 MG TABLET SL PRN (08:59)
[2020-05-11] MEDS ORDERED: MAG HYDROX/AL HYDROX/SIMETH 30 ML UNIT-DOSE CUP PO PRN (08:59)
[2020-05-11] MEDS ORDERED: IBUPROFEN 400 MG TABLET (FP) PO PRN (08:59)
[2020-05-11] MEDS ORDERED: MENTHOL/PHENOL 1 EACH UD MM PRN (08:59)
[2020-05-11] MEDS ORDERED: ACETAMINOPHEN 325 MG TABLET (FP) PO PRN ×2 (08:59)
[2020-05-11] MEDS ORDERED: MAGNESIUM CITRATE 300 ML BOTTLE PO PRN (08:59)
[2020-05-11] MEDS ORDERED: BISMUTH SUBSALICYLATE 524 MG/30 ML UD PO PRN (08:59)
[2020-05-11] MEDS ORDERED: hydrOXYzine PAMOATE 25 MG CAPSULE (FP) PO PRN (08:59)
[2020-05-11] MEDS ORDERED: METHOCARBAMOL 500 MG TABLET PO PRN (08:59)
[2020-05-11] MEDS ORDERED: MAGNESIUM HYDROX 2400MG/30ML ORAL SUSPENSION 30 ML CUP PO PRN (08:59)
[2020-05-11 09:02] VITALS: BMI 25.1
[2020-05-11] MEDS: PRENATAL VITAMINS W/ FOLIC ACID TABLET (FP) PO SCH (12:53)
[2020-05-11] MEDS: chlordiazePOXIDE HCL 25 MG CAPSULE PO SCH ×3 (12:54→22:51)
[2020-05-11 13:47] LABS: HEMATOCRIT 40.6 % (32.4-45.2); HEMOGLOBIN 13.5 GM/dL (10.7-15.3); MCH 31.9 pg (25.7-33.7); MCHC 33.3 g/dl (32.0-36.0); MEAN CELL VOLUME 95.9 fl (80-96); PLATELET COUNT 221 K/MM3 (134-434); RBC 4.24 M/mm3 (3.60-5.2); RDW 13.6 % (11.6-15.6); WHITE BLOOD COUNT 6.9 K/mm3 (4.0-10.0)
[2020-05-11 14:11] LABS: POTASSIUM 3.9 mmol/L (3.5-5.1)
[2020-05-11 14:13] LABS: CALCIUM 9.2 mg/dL (8.5-10.1)
[2020-05-11 14:14] LABS: ALBUMIN 4.6 g/dl (3.4-5.0); BLOOD UREA NITROGEN 15.8 mg/dL (7-18)
[2020-05-11 14:18] LABS: BILIRUBIN,TOTAL 0.4 mg/dL (0.2-1); CREATININE 0.7 mg/dL (0.55-1.3)
[2020-05-11 14:19] LABS: TOT PROT 7.9 g/dl (6.4-8.2)
[2020-05-11] MEDS: MELATONIN 5 MG TABLETS PO SCH (22:51)
[2020-05-11] MEDS: traZODone HCL 50 MG TABLET (FP) PO SCH (22:51)
[2020-05-11] MEDS: THIAMINE HCL 100 MG TABLET (FP) PO SCH (22:51)
[2020-05-12] MEDS: chlordiazePOXIDE HCL 25 MG CAPSULE PO SCH ×4 (08:05→23:00)
[2020-05-12] MEDS: PRENATAL VITAMINS W/ FOLIC ACID TABLET (FP) PO SCH (11:30)
[2020-05-12] MEDS: traZODone HCL 50 MG TABLET (FP) PO SCH (22:20)
[2020-05-12] MEDS: MELATONIN 5 MG TABLETS PO SCH (22:22)
[2020-05-12] MEDS: THIAMINE HCL 100 MG TABLET (FP) PO SCH (22:22)
[2020-05-13] MEDS: chlordiazePOXIDE HCL 25 MG CAPSULE PO SCH ×2 (06:25→10:29)
[2020-05-13 09:16] VITALS: BP 102/53; PULSE 55; TEMP 97.7
[2020-05-13] MEDS: PRENATAL VITAMINS W/ FOLIC ACID TABLET (FP) PO SCH (10:29)
[2020-05-14] MEDS ORDERED: chlordiazePOXIDE HCL 10 MG CAPSULE PO PRN
[2020-05-14] MEDS ORDERED: chlordiazePOXIDE HCL 10 MG CAPSULE PO SCH (05:00)
[2020-05-15] MEDS ORDERED: chlordiazePOXIDE HCL 10 MG CAPSULE PO SCH (05:00)
[2020-05-16] MEDS ORDERED: chlordiazePOXIDE HCL 10 MG CAPSULE PO ONE (05:00)
== END 2020-05-13 11:35 | disposition home or self-care (01) | DRG 774 ==
LOC: YASAS 08:08 → Y6N 09:12
PROVIDERS: ADMIT Allergy & Immunology; ATTEND Allergy & Immunology
PROC: HZ2ZZZZ Detoxification Services for Substance Abuse Treatment (ICD-10-PCS; principal; 2020-05-11)
DX: F10.230 Alcohol dependence with withdrawal, uncomplicated (principal); F14.10 Cocaine abuse, uncomplicated; F16.10 Hallucinogen abuse, uncomplicated; F12.20 Cannabis dependence, uncomplicated; F17.210 Nicotine dependence, cigarettes, uncomplicated; F20.9 Schizophrenia, unspecified; F31.9 Bipolar disorder, unspecified; F19.24 Other psychoactive substance dependence with psychoactive substance-induced mood disorder; F10.282 Alcohol dependence with alcohol-induced sleep disorder; E16.2 Hypoglycemia, unspecified; R63.4 Abnormal weight loss; Z68.25 Body mass index [BMI] 25.0-25.9, adult; Z90.49 Acquired absence of other specified parts of digestive tract; Z88.0 Allergy status to penicillin; Z91.012 Allergy to eggs; Z91.19 Patient's noncompliance with other medical treatment and regimen
CPT/HCPCS: 36415; 80053; 81025; 85027; 86780; C9803; U0003

== ENCOUNTER 2020-11-20 08:36 | Inpatient (IN) | payer OTHER ==
[2020-11-20 09:29] VITALS: BMI 25.1
[2020-11-20] MEDS ORDERED: METHOCARBAMOL 500 MG TABLET PO PRN (10:32)
[2020-11-20] MEDS ORDERED: ACETAMINOPHEN 325 MG TABLET (FP) PO PRN ×2 (10:32)
[2020-11-20] MEDS ORDERED: MAG HYDROX/AL HYDROX/SIMETH 30 ML UNIT-DOSE CUP PO PRN (10:32)
[2020-11-20] MEDS ORDERED: MENTHOL/PHENOL 1 EACH UD MM PRN (10:32)
[2020-11-20] MEDS ORDERED: MAGNESIUM HYDROX 2400MG/30ML ORAL SUSPENSION 30 ML CUP PO PRN (10:32)
[2020-11-20] MEDS ORDERED: ONDANSETRON *ODT* 4 MG TABLET SL PRN (10:32)
[2020-11-20] MEDS ORDERED: BISMUTH SUBSALICYLATE 524 MG/30 ML PO PRN (10:32)
[2020-11-20] MEDS ORDERED: NICOTINE POLACRILEX 2 MG GUM BUC PRN (10:32)
[2020-11-20] MEDS ORDERED: MAGNESIUM CITRATE 300 ML BOTTLE PO PRN (10:32)
[2020-11-20] MEDS: diazePAM 5 MG TABLET PO SCH ×3 (11:47→22:57)
[2020-11-20] MEDS: PRENATAL VITAMINS W/ FOLIC ACID TABLET (FP) PO SCH (11:47)
[2020-11-20] MEDS: hydrOXYzine PAMOATE 25 MG CAPSULE (FP) PO SCH ×3 (13:16→22:56)
[2020-11-20 13:24] LABS: ALBUMIN 4.2 g/dl (3.4-5.0); CALCIUM 9.3 mg/dL (8.5-10.1)
[2020-11-20 13:25] LABS: BLOOD UREA NITROGEN 21.6 mg/dL (7-18)
[2020-11-20 13:26] LABS: HEMATOCRIT 34.7 % (32.4-45.2); HEMOGLOBIN 11.7 GM/dL (10.7-15.3); MCH 32.4 pg (25.7-33.7); MCHC 33.8 g/dl (32.0-36.0); MEAN CELL VOLUME 95.8 fl (80-96); MEAN PLT VOLUME 9.1 fl (7.5-11.1); PLATELET COUNT 295 K/MM3 (134-434); RBC 3.62 M/mm3 (3.60-5.2); RDW 12.9 % (11.6-15.6); WHITE BLOOD COUNT 8.5 K/mm3 (4.0-10.0)
[2020-11-20 13:28] LABS: CREATININE 0.8 mg/dL (0.55-1.3)
[2020-11-20 13:29] LABS: BILIRUBIN,TOTAL 0.4 mg/dL (0.2-1); TOT PROT 7.5 g/dl (6.4-8.2)
[2020-11-20] MEDS: THIAMINE HCL 100 MG TABLET (FP) PO SCH (22:56)
[2020-11-20] MEDS: MELATONIN 5 MG TABLETS PO SCH (22:56)
[2020-11-21] MEDS: diazePAM 5 MG TABLET PO SCH ×4 (07:27→22:45)
[2020-11-21] MEDS: hydrOXYzine PAMOATE 25 MG CAPSULE (FP) PO SCH ×5 (07:28→22:45)
[2020-11-21] MEDS: NICOTINE 7 MG/24 HOURS TOPICAL PATCH TD SCH (10:50)
[2020-11-21] MEDS: PRENATAL VITAMINS W/ FOLIC ACID TABLET (FP) PO SCH (10:52)
[2020-11-21] MEDS: IBUPROFEN 400 MG TABLET (FP) PO PRN ×2 (10:54→17:41)
[2020-11-21] MEDS: MELATONIN 5 MG TABLETS PO SCH (22:44)
[2020-11-21] MEDS: THIAMINE HCL 100 MG TABLET (FP) PO SCH (22:45)
[2020-11-22] MEDS: diazePAM 5 MG TABLET PO SCH ×3 (08:00→22:35)
[2020-11-22] MEDS: hydrOXYzine PAMOATE 25 MG CAPSULE (FP) PO SCH ×5 (08:00→22:37)
[2020-11-22] MEDS: diazePAM 5 MG TABLET PO PRN ×2 (10:53→17:56)
[2020-11-22] MEDS: PRENATAL VITAMINS W/ FOLIC ACID TABLET (FP) PO SCH (10:53)
[2020-11-22] MEDS: NICOTINE 7 MG/24 HOURS TOPICAL PATCH TD SCH (10:53)
[2020-11-22] MEDS ORDERED: ALBUTEROL SO4 HFA INHALER IH PRN (14:53)
[2020-11-22] MEDS: MELATONIN 5 MG TABLETS PO SCH (22:36)
[2020-11-22] MEDS: THIAMINE HCL 100 MG TABLET (FP) PO SCH (22:36)
[2020-11-23] MEDS: diazePAM 5 MG TABLET PO SCH ×2 (06:09→17:34)
[2020-11-23] MEDS: hydrOXYzine PAMOATE 25 MG CAPSULE (FP) PO SCH ×4 (06:10→17:33)
[2020-11-23] MEDS: IBUPROFEN 400 MG TABLET (FP) PO PRN ×2 (06:12→17:36)
[2020-11-23] MEDS: NICOTINE 7 MG/24 HOURS TOPICAL PATCH TD SCH (10:19)
[2020-11-23] MEDS: PRENATAL VITAMINS W/ FOLIC ACID TABLET (FP) PO SCH (10:19)
[2020-11-23] MEDS: diazePAM 5 MG TABLET PO PRN (10:19)
[2020-11-23 16:07] LABS: SARS-CoV-2 NAA Not Detected (Not Detected)
[2020-11-23] MEDS ORDERED: diphenhydrAMINE HCL 25 MG CAPSULE (FP) PO ONE (21:01)
[2020-11-23] MEDS: THIAMINE HCL 100 MG TABLET (FP) PO SCH (21:42)
[2020-11-23] MEDS: MELATONIN 5 MG TABLETS PO SCH (21:44)
[2020-11-23] MEDS ORDERED: diphenhydrAMINE HCL 50 MG CAPSULE PO SCH (22:00)
[2020-11-23] MEDS ORDERED: OLANZapine 10 MG TABLET PO SCH (22:00)
[2020-11-23] MEDS ORDERED: traZODone HCL 100 MG TABLET (FP) PO SCH (22:00)
[2020-11-23] MEDS: BETAMETHASONE DIP 0.05% TP LOTION 30 ML BOTTLE TP SCH (23:11)
[2020-11-24] MEDS ORDERED: diazePAM 5 MG TABLET PO ONE (06:00)
[2020-11-24] MEDS: NICOTINE 7 MG/24 HOURS TOPICAL PATCH TD SCH (09:47)
[2020-11-24] MEDS: PRENATAL VITAMINS W/ FOLIC ACID TABLET (FP) PO SCH (09:47)
[2020-11-24] MEDS: BETAMETHASONE DIP 0.05% TP LOTION 30 ML BOTTLE TP SCH (09:49)
[2020-11-24 09:58] VITALS: BP 98/58; PULSE 66; TEMP 97.1
== END 2020-11-24 12:48 | disposition other institution (70) | DRG 775 ==
LOC: YASAS 08:36 → Y3N 10:48
PROVIDERS: ADMIT Allergy & Immunology; ATTEND Allergy & Immunology
PROC: HZ2ZZZZ Detoxification Services for Substance Abuse Treatment (ICD-10-PCS; principal; 2020-11-20)
DX: F10.230 Alcohol dependence with withdrawal, uncomplicated (principal); F19.20 Other psychoactive substance dependence, uncomplicated; F12.20 Cannabis dependence, uncomplicated; F17.210 Nicotine dependence, cigarettes, uncomplicated; F25.9 Schizoaffective disorder, unspecified; F19.24 Other psychoactive substance dependence with psychoactive substance-induced mood disorder; F31.81 Bipolar II disorder; F19.280 Other psychoactive substance dependence with psychoactive substance-induced anxiety disorder; G47.00 Insomnia, unspecified; Z90.49 Acquired absence of other specified parts of digestive tract; Z91.14 Patient's other noncompliance with medication regimen
CPT/HCPCS: 36415; 80053; 81025; 85027; 86780; C9803; Q0162; U0003; U0005

== ENCOUNTER 2020-11-24 13:58 | Inpatient (IN) | payer OTHER ==
[2020-11-24] MEDS ORDERED: MAGNESIUM HYDROX 2400MG/30ML ORAL SUSPENSION 30 ML CUP PO PRN (14:32)
[2020-11-24] MEDS ORDERED: guaiFENesin 200 MG/10 ML 10 ML UNIT-DOSE CUPS PO PRN (14:32)
[2020-11-24] MEDS ORDERED: ACETAMINOPHEN 325 MG TABLET (FP) PO PRN (14:32)
[2020-11-24] MEDS ORDERED: IBUPROFEN 400 MG TABLET (FP) PO PRN (14:32)
[2020-11-24] MEDS ORDERED: P-EPHED 60MG/TRIPROLIDI 2.5MG TABLET PO PRN (14:32)
[2020-11-24] MEDS ORDERED: MENTHOL/PHENOL 1 EACH UD MM PRN (14:32)
[2020-11-24] MEDS ORDERED: MAG HYDROX/AL HYDROX/SIMETH 30 ML UNIT-DOSE CUP PO PRN (14:32)
[2020-11-24] MEDS ORDERED: MAGNESIUM CITRATE 300 ML BOTTLE PO PRN (14:32)
[2020-11-24] MEDS ORDERED: NICOTINE POLACRILEX 2 MG GUM BUC PRN (14:32)
[2020-11-24] MEDS ORDERED: LOPERAMIDE HCL 2 MG CAPSULE PO PRN (14:32)
[2020-11-24 14:34] VITALS: BP 96/60; PULSE 88; TEMP 96.8
[2020-11-24] MEDS ORDERED: diphenhydrAMINE HCL 25 MG CAPSULE (FP) PO PRN (15:08)
[2020-11-24] MEDS ORDERED: COLLOIDAL OATMEAL 1 BAR EACH TP PRN (15:11)
[2020-11-24] MEDS ORDERED: hydrOXYzine PAMOATE 25 MG CAPSULE (FP) PO SCH (18:00)
[2020-11-24] MEDS ORDERED: BETAMETHASONE DIPR 0.05% CREAM 15 GM TUBE TP SCH (22:00)
[2020-11-24] MEDS ORDERED: THIAMINE HCL 100 MG TABLET (FP) PO SCH (22:00)
[2020-11-24] MEDS ORDERED: OLANZapine 10 MG TABLET PO SCH (22:00)
[2020-11-24] MEDS ORDERED: traZODone HCL 150 MG TABLET PO SCH (22:00)
[2020-11-24] MEDS ORDERED: MELATONIN 5 MG TABLETS PO SCH (22:00)
[2020-11-25] MEDS ORDERED: NICOTINE 7 MG/24 HOURS TOPICAL PATCH TD SCH (10:00)
[2020-11-25] MEDS ORDERED: PRENATAL VITAMINS W/ FOLIC ACID TABLET (FP) PO SCH (10:00)
== END 2020-11-24 19:55 | disposition left against medical advice (07) | DRG 770 ==
LOC: YASAS 13:58 → Y5N 14:00
PROVIDERS: ADMIT Allergy & Immunology; ATTEND Allergy & Immunology
PROC: HZ42ZZZ Group Counseling for Substance Abuse Treatment, Cognitive-Behavioral (ICD-10-PCS; principal; 2020-11-24)
DX: F10.20 Alcohol dependence, uncomplicated (principal); F19.20 Other psychoactive substance dependence, uncomplicated; F12.10 Cannabis abuse, uncomplicated; F17.210 Nicotine dependence, cigarettes, uncomplicated; F19.280 Other psychoactive substance dependence with psychoactive substance-induced anxiety disorder; F25.9 Schizoaffective disorder, unspecified; F31.81 Bipolar II disorder; G47.00 Insomnia, unspecified; Z91.14 Patient's other noncompliance with medication regimen; Z90.49 Acquired absence of other specified parts of digestive tract

== ENCOUNTER 2021-02-03 09:50 | Inpatient (IN) | payer OTHER ==
[2021-02-03] MEDS ORDERED: NICOTINE 10 MG CARTRIDGE (INHALER) IH PRN (13:22)
[2021-02-03] MEDS ORDERED: METHOCARBAMOL 500 MG TABLET PO PRN (13:22)
[2021-02-03] MEDS ORDERED: ACETAMINOPHEN 325 MG TABLET (FP) PO PRN ×2 (13:22)
[2021-02-03] MEDS ORDERED: MAGNESIUM CITRATE 300 ML BOTTLE PO PRN (13:22)
[2021-02-03] MEDS ORDERED: IBUPROFEN 400 MG TABLET (FP) PO PRN (13:22)
[2021-02-03] MEDS ORDERED: diazePAM 5 MG TABLET PO PRN (13:22)
[2021-02-03] MEDS ORDERED: MAGNESIUM HYDROX 2400MG/30ML ORAL SUSPENSION 30 ML CUP PO PRN (13:22)
[2021-02-03] MEDS ORDERED: ONDANSETRON *ODT* 4 MG TABLET SL PRN (13:22)
[2021-02-03] MEDS ORDERED: BISMUTH SUBSALICYLATE 262 MG/15 ML BTL PO PRN (13:22)
[2021-02-03] MEDS ORDERED: MAG HYDROX/AL HYDROX/SIMETH 30 ML UNIT-DOSE CUP PO PRN (13:22)
[2021-02-03] MEDS ORDERED: MENTHOL/PHENOL 1 EACH UD MM PRN (13:22)
[2021-02-03 14:27] VITALS: BMI 25.5
[2021-02-03] MEDS: hydrOXYzine PAMOATE 25 MG CAPSULE (FP) PO SCH ×3 (15:01→23:11)
[2021-02-03] MEDS: PRENATAL VITAMINS W/ FOLIC ACID TABLET (FP) PO SCH (15:01)
[2021-02-03] MEDS: diazePAM 5 MG TABLET PO SCH ×2 (17:57→23:10)
[2021-02-03] MEDS: MELATONIN 5 MG TABLETS PO SCH (23:10)
[2021-02-03] MEDS: THIAMINE HCL 100 MG TABLET (FP) PO SCH (23:11)
[2021-02-04] MEDS: diazePAM 5 MG TABLET PO SCH ×4 (06:29→23:19)
[2021-02-04] MEDS: hydrOXYzine PAMOATE 25 MG CAPSULE (FP) PO SCH ×5 (06:29→23:19)
[2021-02-04] MEDS ORDERED: ALBUTEROL SO4 HFA INHALER IH PRN (09:52)
[2021-02-04] MEDS: PRENATAL VITAMINS W/ FOLIC ACID TABLET (FP) PO SCH (10:51)
[2021-02-04 11:17] LABS: HEMATOCRIT 34.4 % (32.4-45.2); HEMOGLOBIN 11.8 GM/dL (10.7-15.3); MCHC 34.3 g/dl (32.0-36.0); MEAN CELL VOLUME 93.3 fl (80-96); MEAN PLT VOLUME 9.4 fl (7.5-11.1); PLATELET COUNT 223 10^3/uL (134-434); RBC 3.69 M/mm3 (3.60-5.2); WHITE BLOOD COUNT 4.8 K/mm3 (4.0-10.0)
[2021-02-04 11:30] LABS: ALBUMIN 3.5 g/dl (3.4-5.0); BLOOD UREA NITROGEN 11.4 mg/dL (7-18); CALCIUM 8.5 mg/dL (8.5-10.1)
[2021-02-04 11:34] LABS: CREATININE 0.7 mg/dL (0.55-1.3)
[2021-02-04 11:35] LABS: BILIRUBIN,TOTAL 0.7 mg/dL (0.2-1); TOT PROT 6.1 g/dl (6.4-8.2)
[2021-02-04] MEDS: MELATONIN 5 MG TABLETS PO SCH (23:19)
[2021-02-04] MEDS: THIAMINE HCL 100 MG TABLET (FP) PO SCH (23:19)
[2021-02-05] MEDS: diazePAM 5 MG TABLET PO SCH ×3 (06:23→23:08)
[2021-02-05] MEDS: hydrOXYzine PAMOATE 25 MG CAPSULE (FP) PO SCH ×5 (06:24→23:08)
[2021-02-05] MEDS: PRENATAL VITAMINS W/ FOLIC ACID TABLET (FP) PO SCH (10:26)
[2021-02-05] MEDS: THIAMINE HCL 100 MG TABLET (FP) PO SCH (23:08)
[2021-02-05] MEDS: MELATONIN 5 MG TABLETS PO SCH (23:08)
[2021-02-06] MEDS: diazePAM 5 MG TABLET PO SCH ×2 (07:04→20:23)
[2021-02-06] MEDS: hydrOXYzine PAMOATE 25 MG CAPSULE (FP) PO SCH ×5 (07:04→22:50)
[2021-02-06] MEDS: PRENATAL VITAMINS W/ FOLIC ACID TABLET (FP) PO SCH (09:36)
[2021-02-06] MEDS: MELATONIN 5 MG TABLETS PO SCH (22:49)
[2021-02-06] MEDS: THIAMINE HCL 100 MG TABLET (FP) PO SCH (22:50)
[2021-02-07] MEDS ORDERED: diazePAM 5 MG TABLET PO ONE (06:00)
[2021-02-07] MEDS: hydrOXYzine PAMOATE 25 MG CAPSULE (FP) PO SCH (06:32)
[2021-02-07 07:23] VITALS: BP 124/97; PULSE 72; TEMP 97
== END 2021-02-07 09:32 | disposition home or self-care (01) | DRG 774 ==
LOC: YASAS 09:50 → Y6N 12:50
PROVIDERS: ADMIT Allergy & Immunology; ATTEND Allergy & Immunology
PROC: HZ2ZZZZ Detoxification Services for Substance Abuse Treatment (ICD-10-PCS; principal; 2021-02-03)
DX: F10.230 Alcohol dependence with withdrawal, uncomplicated (principal); F14.20 Cocaine dependence, uncomplicated; F12.20 Cannabis dependence, uncomplicated; F16.10 Hallucinogen abuse, uncomplicated; F17.210 Nicotine dependence, cigarettes, uncomplicated; F31.81 Bipolar II disorder; F20.9 Schizophrenia, unspecified; J45.909 Unspecified asthma, uncomplicated; K21.9 Gastro-esophageal reflux disease without esophagitis; M17.12 Unilateral primary osteoarthritis, left knee; Z62.810 Personal history of physical and sexual abuse in childhood; Z91.410 Personal history of adult physical and sexual abuse
CPT/HCPCS: 36415; 80053; 85027; 86780; C9803; U0003; U0005